=== PATIENT | female | born 1935 | race Caucasian/White ===

== ENCOUNTER 2020-05-05 13:06 | Inpatient (IN) | payer MEDICARE, BC ==
--- NOTE | 2020-05-05 13:37 | ED ---
General Adult HPI - General Chief complaint: GI Bleed Stated complaint: gi bleed Time Seen by Provider: 05/05/20 13:23 Source: patient, EMS, RN notes reviewed, old records reviewed Mode of arrival: EMS Limitations: altered mental status, physical limitation - History of Present Illness Initial comments: 85 -year-old female presenting for evaluation of suspected rectal bleeding. Patient has dementia, unable to contribute to the history. She was diagnosed with coronavirus approximately 2 weeks ago. Patient was noted to have rectal bleeding and transferred to the emergency department. Uncertain if this was suspected melena or hematochezia. Greatest that the patient has been more weak than usual. No reported fevers. No reported vomiting. Patient has had diarrhea. - Related Data Allergies Allergy/AdvReac Type Severity Reaction Status Date / Time clarithromycin [From Biaxin] Allergy Unknown Verified 05/05/20 13:33 Sulfa (Sulfonamide Allergy Unknown Verified 05/05/20 13:33 Antibiotics) zolpidem [From Ambien] Allergy Unknown Verified 05/05/20 13:33 Review of Systems ROS Statement: Those systems with pertinent positive or pertinent negative responses have been documented in the HPI. ROS Other: All systems not noted in ROS Statement are negative. Past Medical History Past Medical History: Unable to Obtain History of Any Multi-Drug Resistant Organisms: Unobtainable Past Surgical History: Unable to Obtain Past Psychological History: Unable to Obtain Smoking Status: Unknown if ever smoked Past Alcohol Use History: Unable to Obtain Past Drug Use History: Unable to Obtain General Exam Limitations: altered mental status, physical limitation General appearance: alert Head exam: Present: atraumatic, normocephalic Eye exam: Present: normal appearance, PERRL ENT exam: Present: mucous membranes dry Neck exam: Present: normal inspection. Absent: tenderness, meningismus Respiratory exam: Present: normal lung sounds bilaterally. Absent: respiratory distress, wheezes Cardiovascular Exam: Present: regular rate, normal rhythm GI/Abdominal exam: Present: soft. Absent: distended, tenderness Rectal exam: Absent: black stool, bloody stool Extremities exam: Present: tenderness (Left lower extremity is externally rotated relative to the knee with a in place. Uncertain if this is baseline.) Neurological exam: Present: alert Psychiatric exam: Present: normal affect, normal mood Skin exam: Present: warm, pallor Course Vital Signs 05/05/20 05/05/20 13:11 13:56 Temperature 99.6 F Pulse Rate 73 57 L Respiratory 16 18 Rate Blood Pressure 139/58 107/48 O2 Sat by Pulse 96 98 Oximetry EKG Findings - EKG Comments: EKG Findings:: EKG: Atrial fibrillation with slow ventricular response, rate of 58 QRS duration 86, QTC 429 Medical Decision Making - Medical Decision Making 85-year-old female presenting for evaluation of GI bleed. Patient has dark stool, this is heme positive. She has hemoglobin of 9 with no known baseline. Her blood pressure is stable in the emergency department. She is unable to contribute all to the history. I did discuss case with Dr. Hernandez who is familiar with the patient, she was admitted with gastroenterology placed on consult. Patient is started on proton pump inhibitor, repeat laboratory studies will be ordered in approximately 5 hours for trended hemoglobin. - Lab Data Result diagrams: 05/05/20 13:30 05/05/20 13:30 Lab Results 05/05/20 05/05/20 05/05/20 Range/Units 13:30 13:30 13:30 WBC 9.5 (3.8-10.6) k/uL RBC 2.79 L (3.80-5.40) m/uL Hgb 9.0 L (11.4-16.0) gm/dL Hct 27.3 L (34.0-46.0) % MCV 97.8 (80.0-100.0) fL MCH 32.4 (25.0-35.0) pg MCHC 33.1 (31.0-37.0) g/dL RDW 14.2 (11.5-15.5) % Plt Count 267 (150-450) k/uL MPV 9.7 Neutrophils % 85 % Lymphocytes % 8 % Monocytes % 4 % Eosinophils % 2 % Basophils % 0 % Neutrophils # 8.1 H (1.3-7.7) k/uL Lymphocytes # 0.7 L (1.0-4.8) k/uL Monocytes # 0.4 (0-1.0) k/uL Eosinophils # 0.2 (0-0.7) k/uL Basophils # 0.0 (0-0.2) k/uL PT 9.9 (9.0-12.0) sec INR 0.9 (<1.2) APTT 20.1 L (22.0-30.0) sec Sodium (137-145) mmol/L Potassium (3.5-5.1) mmol/L Chloride (98-107) mmol/L Carbon Dioxide (22-30) mmol/L Anion Gap mmol/L BUN (7-17) mg/dL Creatinine (0.52-1.04) mg/dL Est GFR (CKD-EPI)AfAm (>60 ml/min/1.73 sqM) Est GFR (CKD-EPI)NonAf (>60 ml/min/1.73 sqM) Glucose (74-99) mg/dL Plasma Lactic Acid Samuel (0.7-2.0) mmol/L Calcium (8.4-10.2) mg/dL Magnesium (1.6-2.3) mg/dL Total Bilirubin (0.2-1.3) mg/dL AST (14-36) U/L ALT (4-34) U/L Alkaline Phosphatase (38-126) U/L Total Protein (6.3-8.2) g/dL Albumin (3.5-5.0) g/dL Stool Occult Blood Positive H (Negative) 05/05/20 05/05/20 Range/Units 13:30 13:30 WBC (3.8-10.6) k/uL RBC (3.80-5.40) m/uL Hgb (11.4-16.0) gm/dL Hct (34.0-46.0) % MCV (80.0-100.0) fL MCH (25.0-35.0) pg MCHC (31.0-37.0) g/dL RDW (11.5-15.5) % Plt Count (150-450) k/uL MPV Neutrophils % % Lymphocytes % % Monocytes % % Eosinophils % % Basophils % % Neutrophils # (1.3-7.7) k/uL Lymphocytes # (1.0-4.8) k/uL Monocytes # (0-1.0) k/uL Eosinophils # (0-0.7) k/uL Basophils # (0-0.2) k/uL PT (9.0-12.0) sec INR (<1.2) APTT (22.0-30.0) sec Sodium 134 L (137-145) mmol/L Potassium 5.0 (3.5-5.1) mmol/L Chloride 107 (98-107) mmol/L Carbon Dioxide 24 (22-30) mmol/L Anion Gap 3 mmol/L BUN 58 H (7-17) mg/dL Creatinine 0.79 (0.52-1.04) mg/dL Est GFR (CKD-EPI)AfAm 79 (>60 ml/min/1.73 sqM) Est GFR (CKD-EPI)NonAf 69 (>60 ml/min/1.73 sqM) Glucose 272 H (74-99) mg/dL Plasma Lactic Acid Samuel 1.2 (0.7-2.0) mmol/L Calcium 8.3 L (8.4-10.2) mg/dL Magnesium 1.8 (1.6-2.3) mg/dL Total Bilirubin 0.5 (0.2-1.3) mg/dL AST 39 H (14-36) U/L ALT 30 (4-34) U/L Alkaline Phosphatase 217 H (38-126) U/L Total Protein 4.8 L (6.3-8.2) g/dL Albumin 2.1 L (3.5-5.0) g/dL Stool Occult Blood (Negative) Disposition Clinical Impression: Melena Disposition: ADMITTED IP TO THIS [facility] Condition: Stable Is patient prescribed a controlled substance at d/c from ED?: No Referrals: Leah Hernandez MD [Primary Care Provider] - 1-2 days Decision to Admit Reason: Admit from EC Decision Date: 05/05/20 Decision Time: 15:22
[2020-05-05 13:49] LABS: Basophils % (A) 0 %; Eosinophils # (A) 0.2 k/uL (0-0.7); Eosinophils % (A) 2 %; HCT 27.3 % (34.0-46.0); Lymphocytes # (A) 0.7 k/uL (1.0-4.8); Lymphocytes % (A) 8 %; MCH 32.4 pg (25.0-35.0); MCHC 33.1 g/dL (31.0-37.0); MCV 97.8 fL (80.0-100.0); Mean Platelet Volume 9.7; Monocytes # (A) 0.4 k/uL (0-1.0); Monocytes % (A) 4 %; Neutrophils # (A) 8.1 k/uL (1.3-7.7); Neutrophils % (A) 85 %; Platelet Count 267 k/uL (150-450); RBC 2.79 m/uL (3.80-5.40); RDW 14.2 % (11.5-15.5); WBC 9.5 k/uL (3.8-10.6)
[2020-05-05 14:00] LABS: Albumin 2.1 g/dL (3.5-5.0); Calcium 8.3 mg/dL (8.4-10.2); Magnesium 1.8 mg/dL (1.6-2.3); Total Bilirubin 0.5 mg/dL (0.2-1.3); Total Protein 4.8 g/dL (6.3-8.2)
[2020-05-05 14:08] LABS: INR 0.9 (<1.2); Prothrombin Time 9.9 sec (9.0-12.0)
[2020-05-05 14:14] LABS: Partial Thromboplastin Time 20.1 sec (22.0-30.0)
[2020-05-05] MEDS ORDERED: PANTOPRAZOLE 40 MG/10 ML VIAL IVP STA (14:28)
[2020-05-05] MEDS ORDERED: NALOXONE 0.4 MG/ML 1 ML VIAL IV PRN (15:17)
--- NOTE | 2020-05-05 18:50 | P.HPIM ---
History of Present Illness H&P Date: 05/05/20 Chief Complaint: Acute blood tarry stool This is a pleasant 85-year-old female with unknown PCP, [place] [facility] [place], for subacute rehabilitation. She sustained a fracture on the left ankle, for which Was provided at [facility], [place], operated by [facility],, she also was diagnosed to have cough. On 04/18/2020, for which family members are in critical condition, apparently the son was in ICU at that time of her hospitalization. She required O2 at nighttime, for which because of cold, now she required O2 [id number]. She was given dexamethasone, and no antibiotic was given at that time, and no monoclonal antibodies is given at the time, remdesivir not required . patient has underlying diabetes mellitus type 2, hypertension, hyperlipidemia, atrial fibrillation, hypothyroidism, macular degeneration, hepatitis 50 years ago, osteoporosis, right broken wrist, severe central canal stenosis L4, compression fractures T 11 2 L4, She presents to emergency room with blood as it was black and burgundy in the stool, as well as mental status changes, for which the original recommendation comes from myself at [facility] on the [place]. Patient has diarrhea. Weaker than usual and has diminished appetite. No respiratory distress when evaluated Review of Systems Constitutional: Reports as per HPI, Reports lethargy, Reports malaise, Reports poor appetite, Denies anorexia, Denies chills, Denies chronic headaches, Denies chronic pain, Denies daytime sleepiness, Denies fatigue, Denies fever, Denies night sweats, Denies sweats, Denies weakness, Denies weight gain, Denies weight loss Ears, nose, mouth and throat: Reports as per HPI Cardiovascular: Reports as per HPI Respiratory: Reports as per HPI Gastrointestinal: Reports diarrhea, Reports hematochezia, Reports melena Genitourinary: Reports as per HPI Menstruation: Reports as per HPI Musculoskeletal: Reports as per HPI Integumentary: Reports as per HPI Neurological: Reports as per HPI, Reports confusion, Reports hearing difficulti es, Reports weakness, Denies aphasia, Denies ataxia, Denies balance difficulties, Denies burning pain, Denies change in mentation, Denies change in smell/taste, Denies change in speech, Denies convulsions, Denies double vision, Denies gait dysfunction, Denies head injury, Denies headaches, Denies lack of coordination, Denies loss of vision, Denies memory loss, Denies migraines, Denies motor disturbance, Denies numbness, Denies paralysis, Denies paresthesias, Denies seizures, Denies sensory deficit, Denies spasticity, Denies syncope, Denies tic, Denies tingling, Denies transient paralysis, Denies tremors, Denies vertigo, Denies visual changes Psychiatric: Reports as per HPI, Denies anhedonia, Denies anxiety, Denies anxiety attacks, Denies change in appetite, Denies change in libido, Denies change in sleep habits, Denies confusion, Denies depression, Denies difficulty concentrating, Denies disorientation, Denies hallucinations, Denies hopelessness, Denies hypersomnia, Denies insomnia, Denies irritability, Denies memory loss, Denies mood swings, Denies paranoia, Denies sadness/tearfulness, Denies sleep disturbances, Denies suicidal ideation Endocrine: Reports as per HPI Hematologic/Lymphatic: Reports as per HPI Allergic/Immunologic: Reports as per HPI, Denies allergic rhinitis, Denies anaphylaxis, Denies angioedema, Denies gluten intolerance, Denies persistent infections, Denies seasonal allergies, Denies urticaria, Denies wheezing Past Medical History Past Medical History: Unable to Obtain History of Any Multi-Drug Resistant Organisms: Unobtainable Additional Past Surgical History / Comment(s): Cholecystectomy, appendectomy, bilateral cataract surgery, left knee meniscus repair Past Anesthesia/Blood Transfusion Reactions: Unable to Obtain Past Psychological History: Unable to Obtain Smoking Status: Former smoker, Unknown if ever smoked Past Alcohol Use History: Unable to Obtain Past Drug Use History: Unable to Obtain - Past Family History Father History Unknown: Yes (Alcohol history) Mother Family Medical History: Diabetes Mellitus, Hypertension Medications and Allergies Home Medications Medication Instructions Recorded Confirmed Type Acetaminophen Tab [Tylenol] 650 mg PO Q4H PRN 05/05/20 05/05/20 History Allopurinol [Zyloprim] 100 mg PO HS 05/05/20 05/05/20 History Aspirin 81 mg PO DAILY 05/05/20 05/05/20 History Atorvastatin Calcium [Lipitor] 40 mg PO HS 05/05/20 05/05/20 History Bisoprolol [Zebeta] 2.5 mg PO DAILY 05/05/20 05/05/20 History Cholecalciferol [Vitamin D3 (25 25 mcg PO DAILY 05/05/20 05/05/20 History Mcg = 1000 Iu)] Cranberry 300mg 300 mg PO BID 05/05/20 05/05/20 History Donepezil [Aricept] 5 mg PO HS 05/05/20 05/05/20 History Ferrous Sulfate [Feosol] 325 mg PO DAILY 05/05/20 05/05/20 History Furosemide [Lasix] 20 mg PO Q12H PRN 05/05/20 05/05/20 History Glucerna Shake 120 can PO BID@0900,1700 05/05/20 05/05/20 History Lactobacillus Acidophilus 1 tab PO DAILY 05/05/20 05/05/20 History [Acidophilus] Levothyroxine Sodium [Synthroid] 150 mcg PO HS 05/05/20 05/05/20 History Multivitamins, Thera [Multivitamin 1 tab PO DAILY 05/05/20 05/05/20 History (formulary)] busPIRone HCl [Buspar] 10 mg PO BID@0900,2100 05/05/20 05/05/20 History busPIRone HCl [Buspar] 20 mg PO DAILY@1200 05/05/20 05/05/20 History glipiZIDE [Glucotrol] 10 mg PO BID@0900,1700 05/05/20 05/05/20 History lisinopriL [Zestril] 20 mg PO DAILY 05/05/20 05/05/20 History traZODone HCL 25 mg PO HS 05/05/20 05/05/20 History Allergies Allergy/AdvReac Type Severity Reaction Status Date / Time clarithromycin [From Biaxin] Allergy Unknown Verified 05/05/20 15:45 Sulfa (Sulfonamide Allergy Unknown Verified 05/05/20 15:45 Antibiotics) zolpidem [From Ambien] Allergy Unknown Verified 05/05/20 15:45 Physical Exam Vitals: Vital Signs Temp Pulse Resp BP Pulse Ox 05/05/20 17:02 97.8 F 18 94 L 05/05/20 17:00 58 L 18 111/58 95 05/05/20 13:56 57 L 18 107/48 98 05/05/20 13:11 99.6 F 73 16 139/58 96 Intake and Output 05/05/20 05/05/20 05/05/20 06:59 14:59 22:59 Other: # Bowel Movements 1 Weight 81.647 kg 81.647 kg - Constitutional General appearance: average body habitus, cooperative, no acute distress - EENT Eyes: anicteric sclerae, dentition normal, normal appearance ENT: NA/AT, normal oropharynx - Neck Neck: normal ROM - Respiratory Respiratory: bilateral: CTA, negative: diminished, dullness, rales, rhonchi - Cardiovascular Rhythm: regular Heart sounds: normal: S1, S2 Abnormal Heart Sounds: no systolic murmur, no diastolic murmur, no rub, no S3 Gallop, no S4 Gallop, no click, no other - Gastrointestinal General gastrointestinal: normal bowel sounds, soft - Integumentary Integumentary: decreased turgor, normal - Musculoskeletal Left ankle immobilizer cast Musculoskeletal: generalized weakness - Psychiatric Oriented 1 not much conversation, Results CBC & Chem 7: 05/05/20 13:30 05/05/20 13:30 Labs: Abnormal Lab Results - Last 24 Hours (Table) 05/05/20 05/05/20 05/05/20 Range/Units 13:30 13:30 13:30 RBC 2.79 L (3.80-5.40) m/uL Hgb 9.0 L (11.4-16.0) gm/dL Hct 27.3 L (34.0-46.0) % Neutrophils # 8.1 H (1.3-7.7) k/uL Lymphocytes # 0.7 L (1.0-4.8) k/uL APTT 20.1 L (22.0-30.0) sec Sodium (137-145) mmol/L BUN (7-17) mg/dL Glucose (74-99) mg/dL Calcium (8.4-10.2) mg/dL AST (14-36) U/L Alkaline Phosphatase (38-126) U/L Total Protein (6.3-8.2) g/dL Albumin (3.5-5.0) g/dL Stool Occult Blood Positive H (Negative) Coronavirus (PCR) (Not Detectd) 05/05/20 05/05/20 Range/Units 13:30 15:11 RBC (3.80-5.40) m/uL Hgb (11.4-16.0) gm/dL Hct (34.0-46.0) % Neutrophils # (1.3-7.7) k/uL Lymphocytes # (1.0-4.8) k/uL APTT (22.0-30.0) sec Sodium 134 L (137-145) mmol/L BUN 58 H (7-17) mg/dL Glucose 272 H (74-99) mg/dL Calcium 8.3 L (8.4-10.2) mg/dL AST 39 H (14-36) U/L Alkaline Phosphatase 217 H (38-126) U/L Total Protein 4.8 L (6.3-8.2) g/dL Albumin 2.1 L (3.5-5.0) g/dL Stool Occult Blood (Negative) Coronavirus (PCR) Detected A (Not Detectd) Laboratory Results WBC 9.5 k/uL (3.8-10.6) 05/05/20 13:30 RBC 2.79 m/uL (3.80-5.40) L 05/05/20 13:30 Hgb 9.0 gm/dL (11.4-16.0) L 05/05/20 13:30 Hct 27.3 % (34.0-46.0) L 05/05/20 13:30 MCV 97.8 fL (80.0-100.0) 05/05/20 13:30 MCH 32.4 pg (25.0-35.0) 05/05/20 13:30 MCHC 33.1 g/dL (31.0-37.0) 05/05/20 13:30 RDW 14.2 % (11.5-15.5) 05/05/20 13:30 Plt Count 267 k/uL (150-450) 05/05/20 13:30 MPV 9.7 05/05/20 13:30 Neutrophils % 85 % 05/05/20 13:30 Lymphocytes % 8 % 05/05/20 13:30 Monocytes % 4 % 05/05/20 13:30 Eosinophils % 2 % 05/05/20 13:30 Basophils % 0 % 05/05/20 13:30 Neutrophils # 8.1 k/uL (1.3-7.7) H 05/05/20 13:30 Lymphocytes # 0.7 k/uL (1.0-4.8) L 05/05/20 13:30 Monocytes # 0.4 k/uL (0-1.0) 05/05/20 13:30 Eosinophils # 0.2 k/uL (0-0.7) 05/05/20 13:30 Basophils # 0.0 k/uL (0-0.2) 05/05/20 13:30 PT 9.9 sec (9.0-12.0) 05/05/20 13:30 INR 0.9 (<1.2) 05/05/20 13:30 APTT 20.1 sec (22.0-30.0) L 05/05/20 13:30 Sodium 134 mmol/L (137-145) L 05/05/20 13:30 Potassium 5.0 mmol/L (3.5-5.1) 05/05/20 13:30 Chloride 107 mmol/L (98-107) 05/05/20 13:30 Carbon Dioxide 24 mmol/L (22-30) 05/05/20 13:30 Anion Gap 3 mmol/L 05/05/20 13:30 BUN 58 mg/dL (7-17) H 05/05/20 13:30 Creatinine 0.79 mg/dL (0.52-1.04) 05/05/20 13:30 Est GFR (CKD-EPI)AfAm 79 (>60 ml/min/1.73 sqM) 05/05/20 13:30 Est GFR (CKD-EPI)NonAf 69 (>60 ml/min/1.73 sqM) 05/05/20 13:30 Glucose 272 mg/dL (74-99) H 05/05/20 13:30 Plasma Lactic Acid Samuel 1.2 mmol/L (0.7-2.0) 05/05/20 13:30 Calcium 8.3 mg/dL (8.4-10.2) L 05/05/20 13:30 Magnesium 1.8 mg/dL (1.6-2.3) 05/05/20 13:30 Total Bilirubin 0.5 mg/dL (0.2-1.3) 05/05/20 13:30 AST 39 U/L (14-36) H 05/05/20 13:30 ALT 30 U/L (4-34) 05/05/20 13:30 Alkaline Phosphatase 217 U/L (38-126) H 05/05/20 13:30 Total Protein 4.8 g/dL (6.3-8.2) L 05/05/20 13:30 Albumin 2.1 g/dL (3.5-5.0) L 05/05/20 13:30 Stool Occult Blood Positive (Negative) H 05/05/20 13:30 Coronavirus (PCR) Detected (Not Detectd) A 05/05/20 15:11 Thrombosis Risk Factor Assmnt - Choose All That Apply Any of the Below Risk Factors Present?: No Assessment and Plan Plan: 1. Acute black tarry stool, with weakness and increasing confusion, acute GI bleed, presenting hemoglobin of 9.0, previous hemoglobin of 13.5 on 04/18/2020, consult with gastroenterology, check iron studies, hold aspirin, will need transfusion if below 7, check for iron studies 2 History of paroxysmal atrial fibrillation, not on anticoagulation prior to admission except for aspirin 81 mg daily for which it is held secondary to lack started stool, 3 Hypertension, lisinopril 20 mg daily and bisoprolol 2.5 mg daily furosemide was discontinued prior to her admission to [facility] secondary to dehydration from Covid Echocardiogram reviewed, 04/20/2020, secondary to non-STEMI, type II RI, mild LVH, severe hypokinesia of right ventricle, normal EF, moderate enlargement right atrium, thickened mitral valve, I right ventricle systolic pressure 55, consistent with pulmonary hypertension, ejection fraction 65% moderate TR 4 Covid infection diagnosed 04/23/2020 given dexamethasone, did not require remdesivir, or monoclonal anti-body infusion currently on O2 supplementation, stable without any respiratory distress. Follow-up chest x-ray, obtain Covid markers 5 Hyperlipidemia, on atorvastatin 40 mg daily 6 CK D stage II with recent CARMINA secondary to dehydration, Covid 7 Hypothyroidism, on levothyroxine 150 g daily 8 Anxiety, on BuSpar 10 mg 3 times a day 9 Previous tobacco use, quit in 1975 10 Discharge planning, most likely return to subacute rehab, [facility] 11 History of diabetes mellitus type 2, Accu-Cheks before meals and at bedtime, patient on glipizide 10 mg daily, on hold secondary to decreased appetite, check for blood sugars and sliding scale prior to admission check A1c possible diet controlled 12 Macular degeneration 13 History of severe spinal stenosis L4, 14 Acute left ankle fracture, need to be clarified for weightbearing status left ankle, 15 Dementia, on Aricept 5 mg daily 16 iron deficiency anemia on iron tablets 17 Insomnia and depression, on trazodone 25 mg at bedtime DVT prophylaxis SUSANA michelle, patient had fractured left ankle, at risk for blood clots in the leg, aspirin is held, we'll going to give low dose heparin 5000 units every 12 hours GI prophylaxis
[2020-05-05] MEDS: PANTOPRAZOLE 40 MG/10 ML VIAL IVP SCH (20:50)
[2020-05-05] MEDS: HEPARIN SODIUM,PORCINE 5,000 UNIT/ML 1 ML VIAL SQ SCH (20:50)
[2020-05-05] MEDS: allopurinoL 100 MG TAB PO SCH (20:50)
[2020-05-05] MEDS: busPIRone HCl 10 MG TAB PO SCH (20:50)
[2020-05-05] MEDS: ATORVASTATIN 40 MG TAB PO SCH (20:51)
[2020-05-05] MEDS: LEVOTHYROXINE 75 MCG TAB PO SCH (20:51)
[2020-05-05] MEDS: traZODone HCL 50 MG TAB PO SCH (20:51)
[2020-05-05] MEDS: DONEPEZIL 5 MG TAB PO SCH (20:51)
[2020-05-06 09:00] LABS: Glucose,Whole Blood 218 mg/dL (75-99)
[2020-05-06] MEDS: CHOLECALCIFEROL 25 MCG (1000 IU) TABLET PO SCH (09:07)
[2020-05-06] MEDS: BISOPROLOL 5 MG TAB PO SCH (09:07)
[2020-05-06] MEDS: MULTIVITAMINS, THERA 1 EACH TAB PO SCH (09:07)
[2020-05-06] MEDS: PANTOPRAZOLE 40 MG/10 ML VIAL IVP SCH ×2 (09:07→20:53)
[2020-05-06] MEDS: busPIRone HCl 10 MG TAB PO SCH ×2 (09:07→20:58)
[2020-05-06] MEDS: lisinopriL 20 MG TAB PO SCH (09:07)
[2020-05-06] MEDS: HEPARIN SODIUM,PORCINE 5,000 UNIT/ML 1 ML VIAL SQ SCH ×2 (09:07→20:53)
[2020-05-06] MEDS: INSULIN ASPART (NovoLOG) 100 UNIT/ML VIAL SQ SCH ×4 (09:09→20:56)
[2020-05-06] MEDS: ACETAMINOPHEN TAB 325 MG TAB PO PRN (09:20)
--- NOTE | 2020-05-06 10:52 | US ---
EXAMINATION TYPE: US venous doppler duplex LE DATE OF EXAM: 05/06/2020 9:48 AM COMPARISON: NONE CLINICAL HISTORY: edema. SIDE PERFORMED: Bilateral TECHNIQUE: The lower extremity deep venous system is examined utilizing real time linear array sonog sivan with graded compression, doppler sonography and color-flow sonography. VESSELS IMAGED: Common Femoral Vein Deep Femoral Vein Greater Saphenous Vein * Femoral Vein Popliteal Vein Small Saphenous Vein * Proximal Calf Veins (* superficial vessels) Limited exam, patient ended exam before pop images were obtained. Left and right common femoral, supe rficial femoral show normal color flow, vascular waveforms. Right popliteal vein shows normal color f low and no abnormal luminal echoes, compression. Right Leg: Negative for DVT Left Leg: Negative for DVT as visualized. Unable to obtain pop vein images as patient ended exam. IMPRESSION: There is some limitation to the exam. No evident deep venous thrombosis as described.
[2020-05-06 11:37] LABS: Basophils % (A) 0 %; Eosinophils # (A) 0.1 k/uL (0-0.7); Eosinophils % (A) 1 %; HCT 30.7 % (34.0-46.0); HGB 10.1 gm/dL (11.4-16.0); Lymphocytes # (A) 0.5 k/uL (1.0-4.8); Lymphocytes % (A) 5 %; MCHC 32.8 g/dL (31.0-37.0); MCV 100.5 fL (80.0-100.0); Macrocytosis Slight; Mean Platelet Volume 10.3; Monocytes # (A) 0.5 k/uL (0-1.0); Monocytes % (A) 5 %; Neutrophils # (A) 9.2 k/uL (1.3-7.7); Neutrophils % (A) 89 %; Platelet Count 291 k/uL (150-450); RBC 3.06 m/uL (3.80-5.40); RDW 14.5 % (11.5-15.5); WBC 10.4 k/uL (3.8-10.6)
[2020-05-06 11:58] LABS: ALT 34 U/L (4-34); AST 38 U/L (14-36); African American GFR (CKD) 68 (>60 ml/min/1.73 sqM); Albumin 2.6 g/dL (3.5-5.0); Albumin/Globulin Ratio 0.9; Alkaline Phosphatase 267 U/L (38-126); Anion Gap 7 mmol/L; Blood Urea Nitrogen 59 mg/dL (7-17); Calcium 8.5 mg/dL (8.4-10.2); Carbon Dioxide 24 mmol/L (22-30); Chloride 105 mmol/L (98-107); Globulin 2.9 g/dL; Glucose 290 mg/dL (74-99); Non-African American GFR(CKD) 59 (>60 ml/min/1.73 sqM); Potassium 4.4 mmol/L (3.5-5.1); Sodium 136 mmol/L (137-145); Total Bilirubin 0.5 mg/dL (0.2-1.3); Total Protein 5.5 g/dL (6.3-8.2)
[2020-05-06 11:58] LABS: Glucose,Whole Blood 166 mg/dL (75-99)
--- NOTE | 2020-05-06 14:53 | P.PN ---
Subjective Progress Note Date: 05/06/20 HISTORY OF PRESENT ILLNESS This is a pleasant 85-year-old female with unknown PCP, she [facility] in [facility] [place], for subacute rehabilitation. She sustained a fracture on t he left ankle, for which Was provided at [facility],, she also was diagnosed to have cough. On 04/18/2020, for which family members are in critical condition, apparently the son was in ICU at that time of her hospitalization. She required O2 at nighttime, for which because of cold, now she required O2 [id number]. She was given dexamethasone, and no antibiotic was given at that time, and no monoclonal antibodies is given at the time, remdesivir not required . patient has underlying diabetes mellitus type 2, hypertension, hyperlipidemia, atrial fibrillation, hypothyroidism, macular degeneration, hepatitis 50 years ago, osteoporosis, right broken wrist, severe central canal stenosis L4, compression fractures T 11 2 L4, She presents to emergency room with blood as it was black and burgundy in the stool, as well as mental status changes, for which the original recommendation comes from myself at [facility]. Patient has diarrhea. Weaker than usual and has diminished appetite. No respiratory distress when evaluated 05/06: Patient had one black tarry stool today. C. difficile toxin was not tested as he levi She is known to have bilateral lower extremity edema specially left ankle edema for which ultrasound ordered to rule out DVT. Telemetry will be discontinued. H. pylori is pending. Patient has been afebrile, heart rate 65, blood pressure 108/58, pulse ox 98% on 4L nc. REVIEW OF SYSTEMS Constitutional: No fever, no chills, no night sweats. No weight change. Positive weakness, fatigue or lethargy. No daytime sleepiness. EENT: No headache. No blurred vision or double vision, no loss of vision. No loss of Hearing, no ringing in the ears, no dizziness. No nasal drainage or congestion. No epistaxis. No sore throat. Lungs: No shortness of breath, cough, no sputum production. No wheezing. Cardiovascular: No chest pain, noted lower extremity edema. No palpitations. No paroxysmal nocturnal dyspnea. No orthopnea. No lightheadedness or dizziness. No syncopal episodes. Abdominal: No abdominal pain. No nausea, vomiting. No diarrhea. No constipation. Reported tarry stools.. No loss of appetite. Genitourinary: No dysuria, increased frequency, urgency. No urinary retention. Musculoskeletal: No myalgias. Positive muscle weakness, no gait dysfunction, no frequent falls. No back pain. No neck pain. Integumentary: No wounds, no lesions. No rash or pruritus. No unusual bruising. No change in hair or nails. Neurologic: No aphasia. No facial droop. No change in mentation. No head injury. No headache. No paralysis. No paresthesia. Psychiatric: No depression. No anxiety. No mood swings. Endocrine: No abnormal blood sugars. No weight change. No excessive sweating or thirst. No cold intolerance. PHYSICAL EXAMINATION Gen: This is as an 85-year-old female. She noted to be pleasantly confused. She is able to answer questions appropriately. Patient appears to be in no acute distress at the time of evaluation. HEENT: Head is atraumatic, normocephalic. Pupils equal, round. Sclerae is anicteric. NECK: Supple. No JVD. No lymphadenopathy. No thyromegaly. LUNGS: Clear to auscultation. No wheezes or rhonchi. No intercostal retractions. HEART: Regular rate and rhythm. No murmur. ABDOMEN: Soft. Bowel sounds are present. No masses. No tenderness. EXTREMITIES: 1+ bilateral pedal edema, worse on the right. No calf tenderness. NEUROLOGICAL: Patient is awake, alert and oriented to person. Generalized weakness. ASSESSMENT AND PLAN 1. Acute black tarry stool, with weakness and increasing confusion and metab olic encephalopathy secondary to acute GI bleed, presenting hemoglobin of 9.0, previous hemoglobin of 13.5 on 04/18/2020, consult with gastroenterology, check iron studies, hold aspirin, will need transfusion if below 7, check for iron studies. GI consult appreciated. Iron studies ordered. No endoscopy at this time. Continue Protonix 40 mg IV push twice daily. 2 History of paroxysmal atrial fibrillation, not on anticoagulation prior to admission except for aspirin 81 mg daily for which it is held secondary to lack started stool, 3 Hypertension, lisinopril 20 mg daily and bisoprolol 2.5 mg daily furosemide was discontinued prior to her admission to lesions in the [place] secondary to dehy dration from [facility] Echocardiogram reviewed, 04/20/2020, secondary to non-STEMI, type II TX, mild LV H, severe hypokinesia of right ventricle, normal EF, moderate enlargement right atrium, thickened mitral valve, I right ventricle systolic pressure 55, consistent with pulmonary hypertension, ejection fraction 65% moderate TR 4 Covid infection diagnosed 04/23/2020 given dexamethasone, did not require remdesivir, or monoclonal anti-body infusion currently on O2 supplementation, stable without any respiratory distress. Follow-up chest x-ray, obtain Covid markers 5 Hyperlipidemia, on atorvastatin 40 mg daily 6 CKD stage II with recent CARMINA secondary to dehydration, Covid 7 Hypothyroidism, on levothyroxine 150 g daily 8 generalized anxiety disorder, on BuSpar 10 mg 3 times a day 9 Previous tobacco use, quit in 1975 10 Discharge planning, most likely return to subacute rehab, [facility] 11 History of diabetes mellitus type 2, Accu-Cheks before meals and at bedtime, patient on glipizide 10 mg daily, on hold secondary to decreased appetite, check for blood sugars and sliding scale prior to admission check A1c possible diet controlled 12 Macular degeneration 13 History of severe spinal stenosis L4, 14 Acute left ankle fracture, need to be clarified for weightbearing status left ankle, 15 Dementia, on Aricept 5 mg daily 16 iron deficiency anemia on iron tablets 17 Insomnia and depression, on trazodone 25 mg at bedtime DVT prophylaxis SUSANA michelle, patient had fractured left ankle, at risk for blood clots in the leg, aspirin is held, we'll going to give low dose heparin 5000 units every 12 hours GI prophylaxis DISCHARGE PLAN [facility] return. Impression and plan of care have been directed as dictated by the signing physician. Tami Shine nurse practitioner acting as scribe for signing physician. Objective - Vital Signs Vital signs: Vital Signs Temp 97.6 F 05/06/20 05:50 Pulse 65 05/06/20 05:50 Resp 14 05/06/20 05:50 BP 108/58 05/06/20 05:50 Pulse Ox 98 05/06/20 05:50 Intake & Output 05/05/20 05/06/20 05/06/20 18:59 06:59 18:59 Output Total 300 Balance -300 Weight 81.647 kg Output: Urine 300 Other: Voiding Method Indwelling Catheter # Bowel Movements 1 3 - Labs CBC & Chem 7: 05/06/20 10:56 05/06/20 10:56 Labs: Abnormal Lab Results - Last 24 Hours (Table) 05/05/20 05/05/20 05/05/20 Range/Units 13:30 13:30 13:30 RBC 2.79 L (3.80-5.40) m/uL Hgb 9.0 L (11.4-16.0) gm/dL Hct 27.3 L (34.0-46.0) % Neutrophils # 8.1 H (1.3-7.7) k/uL Lymphocytes # 0.7 L (1.0-4.8) k/uL APTT 20.1 L (22.0-30.0) sec Sodium (137-145) mmol/L BUN (7-17) mg/dL Glucose (74-99) mg/dL POC Glucose (mg/dL) (75-99) mg/dL Calcium (8.4-10.2) mg/dL AST (14-36) U/L Alkaline Phosphatase (38-126) U/L Total Protein (6.3-8.2) g/dL Albumin (3.5-5.0) g/dL Stool Occult Blood Positive H (Negative) Coronavirus (PCR) (Not Detectd) 05/05/20 05/05/20 05/06/20 Range/Units 13:30 15:11 08:52 RBC (3.80-5.40) m/uL Hgb (11.4-16.0) gm/dL Hct (34.0-46.0) % Neutrophils # (1.3-7.7) k/uL Lymphocytes # (1.0-4.8) k/uL APTT (22.0-30.0) sec Sodium 134 L (137-145) mmol/L BUN 58 H (7-17) mg/dL Glucose 272 H (74-99) mg/dL POC Glucose (mg/dL) 218 H (75-99) mg/dL Calcium 8.3 L (8.4-10.2) mg/dL AST 39 H (14-36) U/L Alkaline Phosphatase 217 H (38-126) U/L Total Protein 4.8 L (6.3-8.2) g/dL Albumin 2.1 L (3.5-5.0) g/dL Stool Occult Blood (Negative) Coronavirus (PCR) Detected A (Not Detectd)
[2020-05-06] MEDS ORDERED: SODIUM CHLORIDE 0.9% 500 ML 500 ML IV ONE (15:22)
[2020-05-06 16:31] VITALS: BMI 29.0
[2020-05-06 16:52] LABS: Glucose,Whole Blood 183 mg/dL (75-99)
[2020-05-06 19:20] LABS: Reticulocyte % 3.6 % (0.10-1.80)
[2020-05-06 20:11] LABS: Glucose,Whole Blood 188 mg/dL (75-99)
[2020-05-06] MEDS: traZODone HCL 50 MG TAB PO SCH (20:53)
[2020-05-06] MEDS: LEVOTHYROXINE 75 MCG TAB PO SCH (20:54)
[2020-05-06] MEDS: allopurinoL 100 MG TAB PO SCH (20:55)
[2020-05-06] MEDS: DONEPEZIL 5 MG TAB PO SCH (20:55)
[2020-05-06] MEDS: ATORVASTATIN 40 MG TAB PO SCH (20:55)
[2020-05-06 20:58] LABS: % Iron Saturation 21.76 (12.00-45.00); Ferritin 430.9 ng/mL (10.0-291.0); Folate, Serum >24.0 ng/mL; Iron 42 ug/dL (50-170); Total Iron Binding Capacity 193 ug/dL (228-460)
[2020-05-07 06:15] LABS: ALT 29 U/L (4-34); AST 39 U/L (14-36); African American GFR (CKD) 73 (>60 ml/min/1.73 sqM); Albumin 2.1 g/dL (3.5-5.0); Albumin/Globulin Ratio 0.8; Alkaline Phosphatase 232 U/L (38-126); Anion Gap 3 mmol/L; Blood Urea Nitrogen 59 mg/dL (7-17); Calcium 8.4 mg/dL (8.4-10.2); Carbon Dioxide 25 mmol/L (22-30); Chloride 108 mmol/L (98-107); Globulin 2.7 g/dL; Glucose 118 mg/dL (74-99); Non-African American GFR(CKD) 63 (>60 ml/min/1.73 sqM); Potassium 4.5 mmol/L (3.5-5.1); Sodium 136 mmol/L (137-145); Total Bilirubin 0.5 mg/dL (0.2-1.3); Total Protein 4.8 g/dL (6.3-8.2)
[2020-05-07 06:58] LABS: Glucose,Whole Blood 131 mg/dL (75-99)
[2020-05-07] MEDS: INSULIN ASPART (NovoLOG) 100 UNIT/ML VIAL SQ SCH ×4 (07:28→21:48)
[2020-05-07] MEDS: BISOPROLOL 5 MG TAB PO SCH (07:28)
[2020-05-07] MEDS: lisinopriL 20 MG TAB PO SCH ×2 (07:29→09:09)
[2020-05-07] MEDS: CHOLECALCIFEROL 25 MCG (1000 IU) TABLET PO SCH (09:08)
[2020-05-07] MEDS: busPIRone HCl 10 MG TAB PO SCH ×2 (09:08→21:48)
[2020-05-07] MEDS: MULTIVITAMINS, THERA 1 EACH TAB PO SCH (09:09)
[2020-05-07] MEDS: HEPARIN SODIUM,PORCINE 5,000 UNIT/ML 1 ML VIAL SQ SCH (09:09)
[2020-05-07] MEDS: PANTOPRAZOLE 40 MG/10 ML VIAL IVP SCH ×2 (09:09→21:49)
[2020-05-07 10:14] LABS: HCT 26.3 % (37.2-46.3); HGB 8.4 g/dL (12.0-15.0); MCH 32.6 pg (27.0-32.0); MCHC 31.9 g/dL (32.0-37.0); MCV 101.9 fL (80.0-97.0); Mean Platelet Volume 13.2 fL (9.5-12.2); Platelet Count 235 X 10*3/uL (140-440); RBC 2.58 X 10*6/uL (4.10-5.20); RDW 14.7 % (11.5-14.5); WBC 10.44 X 10*3/uL (4.50-10.00)
[2020-05-07 10:20] LABS: C Reactive Protein 49.7 mg/L (<10.0)
--- NOTE | 2020-05-07 10:45 | XR ---
EXAMINATION TYPE: XR chest 1V portable DATE OF EXAM: 05/07/2020 COMPARISON: NONE HISTORY: Shortness of breath TECHNIQUE: Single frontal view of the chest is obtained. FINDINGS: Diffuse interstitial pattern with bilateral areas of patchy infiltrate and small effusion. Heart is upper limits of normal. Limited inspiration. Diffuse osteopenia and arthropathy of the shou lders. No sizable pneumothorax. IMPRESSION: 1. Bilateral patchy areas of infiltrate for which pneumonia is favored.
[2020-05-07 11:54] LABS: Glucose,Whole Blood 295 mg/dL (75-99)
[2020-05-07] MEDS: dexAMETHasone 2 MG TAB PO SCH (12:31)
[2020-05-07] MEDS: ZINC SULFATE 220 MG CAP PO SCH (12:32)
[2020-05-07] MEDS: SODIUM CHLORIDE 0.9% 1,000 ML IV SCH ×2 (12:32→20:04)
[2020-05-07] MEDS: ASCORBIC ACID 500 MG TAB PO SCH (12:32)
--- NOTE | 2020-05-07 12:52 | P.PN ---
Subjective Progress Note Date: 05/07/20 HISTORY OF PRESENT ILLNESS This is a pleasant 85-year-old female with unknown PCP, she [place] [facility] [place], for subacute rehabilitation. She sustained a fracture on t he left ankle, for which Was provided at [facility],, she also was diagnosed to have cough. On 04/18/2020, for which family members are in critical condition, apparently the son was in ICU at that time of her hospitalization. She required O2 at nighttime, for which because of cold, now she required O2 [id number]. She was given dexamethasone, and no antibiotic was given at that time, and no monoclonal antibodies is given at the time, remdesivir not required . patient has underlying diabetes mellitus type 2, hypertension, hyperlipidemia, atrial fibrillation, hypothyroidism, macular degeneration, hepatitis 50 years ago, osteoporosis, right broken wrist, severe central canal stenosis L4, compression fractures T 11 2 L4, She presents to emergency room with blood as it was black and burgundy in the stool, as well as mental status changes, for which the original recommendation comes from myself at [facility]. Patient has diarrhea. Weaker than usual and has diminished appetite. No respiratory distress when evaluated 05/06: Patient had one black tarry stool today. C. difficile toxin was not tested as he levi She is known to have bilateral lower extremity edema specially left ankle edema for which ultrasound ordered to rule out DVT. Telemetry will be discontinued. H. pylori is pending. Patient has been afebrile, heart rate 65, blood pressure 108/58, pulse ox 98% on 4L nc. 05/07: The patient did have a very large black tarry stool this morning. She denies having any abdominal pain. She remains pleasantly confused. She is on 15 L high flow nasal cannula and nonrebreather which was started yesterday. She had some decreased urine output as well. Blood pressure is marginal. Lisinopril will be discontinued. IV fluids at 75 mL per hour. Stool to be checked for C. difficile colitis. SUSANA michelle added. Heparin subcu discontinued. Consult added for Dr. Redman regarding hypoxia and Covid 19. Chest x-ray ordered. REVIEW OF SYSTEMS Constitutional: No fever, no chills, no night sweats. No weight change. Positive weakness, fatigue or lethargy. No daytime sleepiness. EENT: No headache. No blurred vision or double vision, no loss of vision. No loss of Hearing, no ringing in the ears, no dizziness. No nasal drainage or congestion. No epistaxis. No sore throat. Lungs: Reports shortness of breath, cough, no sputum production. No wheezing. Cardiovascular: No chest pain, noted lower extremity edema. No palpitations. No paroxysmal nocturnal dyspnea. No orthopnea. No lightheadedness or dizz iness. No syncopal episodes. Abdominal: No abdominal pain. No nausea, vomiting. Reports diarrhea. No constipation. Reported tarry stools.. No loss of appetite. Genitourinary: No dysuria, increased frequency, urgency. No urinary retention. Musculoskeletal: No myalgias. Positive muscle weakness, no gait dysfunction, no frequent falls. No back pain. No neck pain. Integumentary: No wounds, no lesions. No rash or pruritus. No unusual bruising. No change in hair or nails. Neurologic: No aphasia. No facial droop. No change in mentation. No head injury. No headache. No paralysis. No paresthesia. Psychiatric: No depression. No anxiety. No mood swings. Endocrine: No abnormal blood sugars. No weight change. PHYSICAL EXAMINATION Gen: This is as an 85-year-old female. She noted to be pleasantly confused. She is able to answer questions appropriately. Patient appears to be in no acute distress at the time of evaluation. HEENT: Head is atraumatic, normocephalic. Pupils equal, round. Sclerae is anicteric. NECK: Supple. No JVD. No lymphadenopathy. No thyromegaly. LUNGS: Clear to auscultation. No wheezes or rhonchi. No intercostal retraction s. HEART: Regular rate and rhythm. No murmur. ABDOMEN: Soft. Bowel sounds are present. No masses. No tenderness. EXTREMITIES: 1+ bilateral pedal edema, worse on the right. No calf tenderness. NEUROLOGICAL: Patient is awake, alert and oriented to person. Generalized weakness. ASSESSMENT AND PLAN 1. Acute black tarry stool, with weakness and increasing confusion and m etabolic encephalopathy secondary to acute GI bleed, presenting hemoglobin of 9.0, previous hemoglobin of 13.5 on 04/18/2020, consult with gastroenterology, check iron studies, hold aspirin, will need transfusion if below 7, check for iron studies. GI consult appreciated. Iron studies ordered. No endoscopy at this time. Continue Protonix 40 mg IV push twice daily. 2 History of paroxysmal atrial fibrillation, not on anticoagulation prior to admission except for aspirin 81 mg daily for which it is held secondary to lack started stool, 3 Hypertension, lisinopril discontinued. Continue bisoprolol 2.5 mg daily furosemide was discontinued prior to her admission to [facility] due to dehydration from Covid. Echocardiogram reviewed, 04/20/2020, secondary to non-STEMI, type II MD, mild LVH, severe hypokinesia of right ventricle, normal EF, moderate enlargement right atrium, thickened mitral valve, I right ventricle systolic pressure 55, consistent with pulmonary hypertension, ejection fraction 65% moderate TR 4 . Acute hypoxic respiratory failure secondary to Covid infection diagnosed 04/23/2020 given dexamethasone, did not require remdesivir, or monoclonal anti- body infusion currently on O2 supplementation, stable without any respiratory distress. Chest x-ray. Inflammatory markers, consult with both her medicine. 5 Hyperlipidemia, on atorvastatin 40 mg daily 6 CKD stage II with recent CARMINA secondary to dehydration, Covid 7 Hypothyroidism, on levothyroxine 150 g daily 8 generalized anxiety disorder, on BuSpar 10 mg 3 times a day 9 Previous tobacco use, quit in 1975 10 Discharge planning, most likely return to subacute rehab, [facility] 11 History of diabetes mellitus type 2, Accu-Cheks before meals and at bedtime, patient on glipizide 10 mg daily, on hold secondary to decreased appetite, check for blood sugars and sliding scale prior to admission check A1c possible diet controlled 12 Macular degeneration 13 History of severe spinal stenosis L4, 14 Acute left ankle fracture, need to be clarified for weightbearing status left ankle, 15 Dementia, on Aricept 5 mg daily 16 iron deficiency anemia on iron tablets 17 Insomnia and depression, on trazodone 25 mg at bedtime DVT prophylaxis SUSANA michelle, patient had fractured left ankle, at risk for blood clots in the leg, aspirin is held, we'll going to give low dose heparin 5000 units every 12 hours GI prophylaxis DISCHARGE PLAN [facility] return. Impression and plan of care have been directed as dictated by the signing physician. Tami Shine nurse practitioner acting as scribe for signing physician. Objective - Vital Signs Vital signs: Vital Signs Temp 96.6 F L 05/07/20 06:09 Pulse 64 05/07/20 06:09 Resp 18 05/07/20 06:09 BP 105/50 05/07/20 06:09 Pulse Ox 90 L 05/07/20 08:29 Intake & Output 05/06/20 05/07/20 05/07/20 18:59 06:59 18:59 Output Total 200 300 Balance -200 -300 Weight 81.647 kg Output: Urine 200 300 Other: Voiding Method Indwelling Catheter Indwelling Catheter # Bowel Movements 1 0 - Labs CBC & Chem 7: 05/07/20 04:38 05/07/20 04:38 Labs: Abnormal Lab Results - Last 24 Hours (Table) 05/06/20 05/06/20 05/06/20 Range/Units 10:56 10:56 10:56 RBC 3.06 L (3.80-5.40) m/uL Hgb 10.1 L (11.4-16.0) gm/dL Hct 30.7 L (34.0-46.0) % MCV 100.5 H (80.0-100.0) fL Neutrophils # 9.2 H (1.3-7.7) k/uL Lymphocytes # 0.5 L (1.0-4.8) k/uL Retic Count 3.60 H (0.10-1.80) % Sodium 136 L (137-145) mmol/L Chloride (98-107) mmol/L BUN 59 H (7-17) mg/dL Glucose 290 H (74-99) mg/dL POC Glucose (mg/dL) (75-99) mg/dL Iron 42 L (50-170) ug/dL TIBC 193 L (228-460) ug/dL Ferritin 430.9 H (10.0-291.0) ng/mL AST 38 H (14-36) U/L Alkaline Phosphatase 267 H (38-126) U/L Total Protein 5.5 L (6.3-8.2) g/dL Albumin 2.6 L (3.5-5.0) g/dL Vitamin B12 1466.0 H (200.0-944.0) pg/mL 05/06/20 05/06/20 05/06/20 Range/Units 11:52 16:50 20:10 RBC (3.80-5.40) m/uL Hgb (11.4-16.0) gm/dL Hct (34.0-46.0) % MCV (80.0-100.0) fL Neutrophils # (1.3-7.7) k/uL Lymphocytes # (1.0-4.8) k/uL Retic Count (0.10-1.80) % Sodium (137-145) mmol/L Chloride (98-107) mmol/L BUN (7-17) mg/dL Glucose (74-99) mg/dL POC Glucose (mg/dL) 166 H 183 H 188 H (75-99) mg/dL Iron (50-170) ug/dL TIBC (228-460) ug/dL Ferritin (10.0-291.0) ng/mL AST (14-36) U/L Alkaline Phosphatase (38-126) U/L Total Protein (6.3-8.2) g/dL Albumin (3.5-5.0) g/dL Vitamin B12 (200.0-944.0) pg/mL 05/07/20 05/07/20 Range/Units 04:38 06:56 RBC (3.80-5.40) m/uL Hgb (11.4-16.0) gm/dL Hct (34.0-46.0) % MCV (80.0-100.0) fL Neutrophils # (1.3-7.7) k/uL Lymphocytes # (1.0-4.8) k/uL Retic Count (0.10-1.80) % Sodium 136 L (137-145) mmol/L Chloride 108 H (98-107) mmol/L BUN 59 H (7-17) mg/dL Glucose 118 H (74-99) mg/dL POC Glucose (mg/dL) 131 H (75-99) mg/dL Iron (50-170) ug/dL TIBC (228-460) ug/dL Ferritin (10.0-291.0) ng/mL AST 39 H (14-36) U/L Alkaline Phosphatase 232 H (38-126) U/L Total Protein 4.8 L (6.3-8.2) g/dL Albumin 2.1 L (3.5-5.0) g/dL Vitamin B12 (200.0-944.0) pg/mL
--- NOTE | 2020-05-07 13:28 | P.CONS ---
History of Present Illness - Reason for Consult Consult date: 05/06/20 GI Bleed Requesting physician: Leah Hernandez - Chief Complaint Dark bowel movements - History of Present Illness 85-year-old female with multiple medical comorbidities including diabetes mellitus, hypertension, hyperlipidemia, atrial fibrillation, hypothyroidism, macular degeneration and recent diagnosis of infection with COVID-19 who is brought to the hospital for evaluation of dark-colored stool. Patient was at [facility] where she was noted to have darker colored stool and was sent in to the hospital for further evaluation. Patient had multiple bowel movements described as dark burgundy in color. On presentation to the hospital patient was found to have hemoglobin of 9, currently 10.1 on repeat blood draw with INR of 0.9 and stool testing positive for occult blood. On questioning the patient denies any history of abdominal pain or prior peptic ulcer disease. She is on daily aspirin therapy. She had 1 dark-colored bowel movement yesterday but no further blood per rectum today. She is requiring high flow nasal cannula at this time. Review of Systems REVIEW OF SYSTEMS: CONSTITUTIONAL: Denies any fevers, chills, weight change but does report fatigue. CARDIOVASCULAR: Denies any chest pain, palpitations high or low blood pressures RESPIRATORY: Denies any hemoptysis but does report cough and shortness of breath. GENITOURINARY: No dysuria or hematuria. MUSCULOSKELETAL: No weakness reported. SKIN: Denies any new rashes or lesions, jaundice or pallor. PSYCHIATRIC: Denies any depression or anxiety. NEUROLOGY: Denies headache, denies any new focal deficits. EARS/NOSE/THROAT: No recent hearing change, congestion, nasal discharge or sore throat. EYES: No pain in eyes, discharge or change in vision. GASTROINTESTINAL: As per HPI. Past Medical History Past Medical History: Unable to Obtain History of Any Multi-Drug Resistant Organisms: Unobtainable Past Surgical History: Unable to Obtain Additional Past Surgical History / Comment(s): Cholecystectomy, appendectomy, bilateral cataract surgery, left knee meniscus repair Past Anesthesia/Blood Transfusion Reactions: Unable to Obtain Past Psychological History: Unable to Obtain Smoking Status: Former smoker, Unknown if ever smoked Past Alcohol Use History: Unable to Obtain Past Drug Use History: Unable to Obtain - Past Family History Father History Unknown: Yes (Alcohol history) Mother Family Medical History: Diabetes Mellitus, Hypertension Medications and Allergies Home Medications Medication Instructions Recorded Confirmed Type Acetaminophen Tab [Tylenol] 650 mg PO Q4H PRN 05/05/20 05/05/20 History Allopurinol [Zyloprim] 100 mg PO HS 05/05/20 05/05/20 History Aspirin 81 mg PO DAILY 05/05/20 05/05/20 History Atorvastatin Calcium [Lipitor] 40 mg PO HS 05/05/20 05/05/20 History Bisoprolol [Zebeta] 2.5 mg PO DAILY 05/05/20 05/05/20 History Cholecalciferol [Vitamin D3 (25 25 mcg PO DAILY 05/05/20 05/05/20 History Mcg = 1000 Iu)] Cranberry 300mg 300 mg PO BID 05/05/20 05/05/20 History Donepezil [Aricept] 5 mg PO HS 05/05/20 05/05/20 History Ferrous Sulfate [Feosol] 325 mg PO DAILY 05/05/20 05/05/20 History Furosemide [Lasix] 20 mg PO Q12H PRN 05/05/20 05/05/20 History Glucerna Shake 120 can PO BID@0900,1700 05/05/20 05/05/20 History Lactobacillus Acidophilus 1 tab PO DAILY 05/05/20 05/05/20 History [Acidophilus] Levothyroxine Sodium [Synthroid] 150 mcg PO HS 05/05/20 05/05/20 History Multivitamins, Thera [Multivitamin 1 tab PO DAILY 05/05/20 05/05/20 History (formulary)] busPIRone HCl [Buspar] 10 mg PO BID@0900,2100 05/05/20 05/05/20 History busPIRone HCl [Buspar] 20 mg PO DAILY@1200 05/05/20 05/05/20 History glipiZIDE [Glucotrol] 10 mg PO BID@0900,1700 05/05/20 05/05/20 History lisinopriL [Zestril] 20 mg PO DAILY 05/05/20 05/05/20 History traZODone HCL 25 mg PO HS 05/05/20 05/05/20 History Allergies Allergy/AdvReac Type Severity Reaction Status Date / Time clarithromycin [From Biaxin] Allergy Unknown Verified 05/05/20 15:45 Sulfa (Sulfonamide Allergy Unknown Verified 05/05/20 15:45 Antibiotics) zolpidem [From Ambien] Allergy Unknown Verified 05/05/20 15:45 Physical Exam Vitals: Vital Signs Temp Pulse Pulse Pulse Resp BP BP 05/06/20 10:48 05/06/20 10:00 97.8 F 64 18 131/73 05/06/20 05:50 97.6 F 65 14 108/58 05/06/20 02:35 97.0 F L 66 14 100/49 05/05/20 22:05 97.7 F 59 L 12 147/86 05/05/20 19:00 12 05/05/20 18:00 97.8 F 53 L 16 108/65 05/05/20 17:02 97.8 F 18 05/05/20 17:00 58 L 18 111/58 05/05/20 13:56 57 L 18 107/48 05/05/20 13:11 99.6 F 73 16 139/58 Pulse Ox 05/06/20 10:48 93 L 05/06/20 10:00 95 05/06/20 05:50 98 05/06/20 02:35 99 05/05/20 22:05 99 05/05/20 19:00 05/05/20 18:00 100 05/05/20 17:02 94 L 05/05/20 17:00 95 05/05/20 13:56 98 05/05/20 13:11 96 Intake and Output 05/05/20 05/06/20 05/06/20 22:59 06:59 14:59 Output Total 300 Balance -300 Output: Urine 300 Other: Voiding Method Indwelling Catheter Indwelling Catheter # Bowel Movements 1 3 Weight 81.647 kg On physical examination, patient appears comfortable in no apparent distress. HEAD: Normocephalic, atraumatic. EYES: No scleral icterus. No conjunctival injection. MOUTH: No lesions, tongue midline. NECK: Trachea midline, no gross abnormalities. CHEST: Decreased air entry in all lung hutson. HEART: S1-S2 appreciated. ABDOMEN: Soft, nontender to palpation. Bowel sounds are positive. No organomegaly. No guarding or rigidity. EXTREMITIES: No pedal edema. SKIN: No rashes, no jaundice. NEUROLOGIC: Alert and oriented to person. Results CBC & Chem 7: 05/07/20 04:38 05/07/20 04:38 Labs: Abnormal Lab Results - Last 24 Hours (Table) 05/05/20 05/05/20 05/05/20 Range/Units 13:30 13:30 13:30 RBC 2.79 L (3.80-5.40) m/uL Hgb 9.0 L (11.4-16.0) gm/dL Hct 27.3 L (34.0-46.0) % MCV (80.0-100.0) fL Neutrophils # 8.1 H (1.3-7.7) k/uL Lymphocytes # 0.7 L (1.0-4.8) k/uL APTT 20.1 L (22.0-30.0) sec Sodium (137-145) mmol/L BUN (7-17) mg/dL Glucose (74-99) mg/dL POC Glucose (mg/dL) (75-99) mg/dL Calcium (8.4-10.2) mg/dL AST (14-36) U/L Alkaline Phosphatase (38-126) U/L Total Protein (6.3-8.2) g/dL Albumin (3.5-5.0) g/dL Stool Occult Blood Positive H (Negative) Coronavirus (PCR) (Not Detectd) 05/05/20 05/05/20 05/06/20 Range/Units 13:30 15:11 08:52 RBC (3.80-5.40) m/uL Hgb (11.4-16.0) gm/dL Hct (34.0-46.0) % MCV (80.0-100.0) fL Neutrophils # (1.3-7.7) k/uL Lymphocytes # (1.0-4.8) k/uL APTT (22.0-30.0) sec Sodium 134 L (137-145) mmol/L BUN 58 H (7-17) mg/dL Glucose 272 H (74-99) mg/dL POC Glucose (mg/dL) 218 H (75-99) mg/dL Calcium 8.3 L (8.4-10.2) mg/dL AST 39 H (14-36) U/L Alkaline Phosphatase 217 H (38-126) U/L Total Protein 4.8 L (6.3-8.2) g/dL Albumin 2.1 L (3.5-5.0) g/dL Stool Occult Blood (Negative) Coronavirus (PCR) Detected A (Not Detectd) 05/06/20 05/06/20 05/06/20 Range/Units 10:56 10:56 11:52 RBC 3.06 L (3.80-5.40) m/uL Hgb 10.1 L (11.4-16.0) gm/dL Hct 30.7 L (34.0-46.0) % MCV 100.5 H (80.0-100.0) fL Neutrophils # 9.2 H (1.3-7.7) k/uL Lymphocytes # 0.5 L (1.0-4.8) k/uL APTT (22.0-30.0) sec Sodium 136 L (137-145) mmol/L BUN 59 H (7-17) mg/dL Glucose 290 H (74-99) mg/dL POC Glucose (mg/dL) 166 H (75-99) mg/dL Calcium (8.4-10.2) mg/dL AST 38 H (14-36) U/L Alkaline Phosphatase 267 H (38-126) U/L Total Protein 5.5 L (6.3-8.2) g/dL Albumin 2.6 L (3.5-5.0) g/dL Stool Occult Blood (Negative) Coronavirus (PCR) (Not Detectd) Chest x-ray: report reviewed Assessment and Plan (1) Melena Narrative/Plan: 85-year-old female with multiple medical comorbidities currently being treated for infection with COVID-19. Patient noted to have dark-colored bowel movements and fall in hemoglobin at 9 on presentation currently 10.1. He denies any history of peptic ulcer disease. She is unsure of prior EGD but does report remote history of colonoscopy. She does not believe she is on any NSAID medication but does take daily iron. Unclear etiology, may be related to gastritis/esophagitis, peptic ulcer disease, AVM, or other etiology. Current Visit: Yes Status: Acute Code(s): K92.1 - MELENA SNOMED Code(s): 1914122 (2) Stool guaiac positive Current Visit: Yes Status: Acute Code(s): R19.5 - OTHER FECAL ABNORMALITIES SNOMED Code(s): 81083139 Plan: Supportive care Okay for clear liquid diet Continue to monitor hemoglobin and hematocrit and transfuse as needed Continue to monitor for signs or symptoms of GI bleeding Anemia laboratory evaluation ordered Continue PPI therapy Avoid anticoagulation therapy at this time Patient currently requiring supplemental oxygen with high flow nasal cannula and would be high risk for endoscopic evaluation at this time, if further evidence of bleeding will reevaluate at that time Thank you for allowing us to participate in the care of the patient
--- NOTE | 2020-05-07 15:15 | P.PN ---
Subjective Progress Note Date: 05/07/20 Principal diagnosis: Melena An 85-year-old female who is seen in follow-up evaluation with a recent diagnosis of Coban 19 infection who was brought into the hospital for further e valuation of dark colored stool. The patient was at [facility] where was noted she had dark colored stool and sent in to the hospital for evaluation. Nursing staff here stated the patient had a very large black tarry stool through the evening. Patient did have a drop in hemoglobin to 8.4 today. The patient is requiring 15 L a high flow oxygen. Patient denies any abdominal pain, nausea, or vomiting. Patient states she was not aware that she was having dark colored stools. Objective - Vital Signs Vital signs: Vital Signs Temp 96.6 F L 05/07/20 06:09 Pulse 64 05/07/20 06:09 Resp 18 05/07/20 06:09 BP 105/50 05/07/20 06:09 Pulse Ox 90 L 05/07/20 08:29 Intake & Output 05/06/20 05/07/20 05/07/20 18:59 06:59 18:59 Output Total 200 300 Balance -200 -300 Weight 81.647 kg Output: Urine 200 300 Other: Voiding Method Indwelling Catheter Indwelling Catheter Indwelling Catheter # Bowel Movements 1 0 - Exam General appearance: The patient is alert, oriented, appears in no acute distress. HET: Head is normocephalic and atraumatic. Conjunctiva pink. Sclera anicteric. Neck: Supple without lymphadenopathy. Abdomen: Soft, obese, nontender, nondistended with bowel sounds. No guarding or rigidity. Extremities: Normal skin color and turgor. No pedal edema Skin: No rashes, no jaundice Neurological: No focal deficits. Alert and oriented 3. - Labs CBC & Chem 7: 05/07/20 04:38 05/07/20 04:38 Labs: Abnormal Lab Results - Last 24 Hours (Table) 05/06/20 05/06/20 05/06/20 Range/Units 10:56 10:56 10:56 WBC (4.50-10.00) X 10*3/uL RBC 3.06 L (3.80-5.40) m/uL Hgb 10.1 L (11.4-16.0) gm/dL Hct 30.7 L (34.0-46.0) % MCV 100.5 H (80.0-100.0) fL MCH (27.0-32.0) pg MCHC (32.0-37.0) g/dL RDW (11.5-14.5) % MPV (9.5-12.2) fL Neutrophils # 9.2 H (1.3-7.7) k/uL Lymphocytes # 0.5 L (1.0-4.8) k/uL Retic Count 3.60 H (0.10-1.80) % Sodium 136 L (137-145) mmol/L Chloride (98-107) mmol/L BUN 59 H (7-17) mg/dL Glucose 290 H (74-99) mg/dL POC Glucose (mg/dL) (75-99) mg/dL Iron 42 L (50-170) ug/dL TIBC 193 L (228-460) ug/dL Ferritin 430.9 H (10.0-291.0) ng/mL AST 38 H (14-36) U/L Alkaline Phosphatase 267 H (38-126) U/L Lactate Dehydrogenase (313-618) U/L C-Reactive Protein (<10.0) mg/L Total Protein 5.5 L (6.3-8.2) g/dL Albumin 2.6 L (3.5-5.0) g/dL Vitamin B12 1466.0 H (200.0-944.0) pg/mL 05/06/20 05/06/20 05/06/20 Range/Units 11:52 16:50 20:10 WBC (4.50-10.00) X 10*3/uL RBC (3.80-5.40) m/uL Hgb (11.4-16.0) gm/dL Hct (34.0-46.0) % MCV (80.0-100.0) fL MCH (27.0-32.0) pg MCHC (32.0-37.0) g/dL RDW (11.5-14.5) % MPV (9.5-12.2) fL Neutrophils # (1.3-7.7) k/uL Lymphocytes # (1.0-4.8) k/uL Retic Count (0.10-1.80) % Sodium (137-145) mmol/L Chloride (98-107) mmol/L BUN (7-17) mg/dL Glucose (74-99) mg/dL POC Glucose (mg/dL) 166 H 183 H 188 H (75-99) mg/dL Iron (50-170) ug/dL TIBC (228-460) ug/dL Ferritin (10.0-291.0) ng/mL AST (14-36) U/L Alkaline Phosphatase (38-126) U/L Lactate Dehydrogenase (313-618) U/L C-Reactive Protein (<10.0) mg/L Total Protein (6.3-8.2) g/dL Albumin (3.5-5.0) g/dL Vitamin B12 (200.0-944.0) pg/mL 05/07/20 05/07/20 05/07/20 Range/Units 04:38 04:38 04:38 WBC 10.44 H (4.50-10.00) X 10*3/uL RBC 2.58 L (3.80-5.40) m/uL Hgb 8.4 L (11.4-16.0) gm/dL Hct 26.3 L (34.0-46.0) % MCV 101.9 H (80.0-100.0) fL MCH 32.6 H (27.0-32.0) pg MCHC 31.9 L (32.0-37.0) g/dL RDW 14.7 H (11.5-14.5) % MPV 13.2 H (9.5-12.2) fL Neutrophils # (1.3-7.7) k/uL Lymphocytes # (1.0-4.8) k/uL Retic Count (0.10-1.80) % Sodium 136 L (137-145) mmol/L Chloride 108 H (98-107) mmol/L BUN 59 H (7-17) mg/dL Glucose 118 H (74-99) mg/dL POC Glucose (mg/dL) (75-99) mg/dL Iron (50-170) ug/dL TIBC (228-460) ug/dL Ferritin (10.0-291.0) ng/mL AST 39 H (14-36) U/L Alkaline Phosphatase 232 H (38-126) U/L Lactate Dehydrogenase 1425 H (313-618) U/L C-Reactive Protein 49.7 H (<10.0) mg/L Total Protein 4.8 L (6.3-8.2) g/dL Albumin 2.1 L (3.5-5.0) g/dL Vitamin B12 (200.0-944.0) pg/mL 05/07/20 Range/Units 06:56 WBC (4.50-10.00) X 10*3/uL RBC (3.80-5.40) m/uL Hgb (11.4-16.0) gm/dL Hct (34.0-46.0) % MCV (80.0-100.0) fL MCH (27.0-32.0) pg MCHC (32.0-37.0) g/dL RDW (11.5-14.5) % MPV (9.5-12.2) fL Neutrophils # (1.3-7.7) k/uL Lymphocytes # (1.0-4.8) k/uL Retic Count (0.10-1.80) % Sodium (137-145) mmol/L Chloride (98-107) mmol/L BUN (7-17) mg/dL Glucose (74-99) mg/dL POC Glucose (mg/dL) 131 H (75-99) mg/dL Iron (50-170) ug/dL TIBC (228-460) ug/dL Ferritin (10.0-291.0) ng/mL AST (14-36) U/L Alkaline Phosphatase (38-126) U/L Lactate Dehydrogenase (313-618) U/L C-Reactive Protein (<10.0) mg/L Total Protein (6.3-8.2) g/dL Albumin (3.5-5.0) g/dL Vitamin B12 (200.0-944.0) pg/mL Assessment and Plan (1) Melena Narrative/Plan: 85-year-old female with multiple medical comorbidities currently being treated for infection with COVID-19. Patient noted to have dark-colored bowel movements and fall in hemoglobin at 9 on presentation currently 10.1. He denies any history of peptic ulcer disease. She is unsure of prior EGD but does report remote history of colonoscopy. She does not believe she is on any NSAID medication but does take daily iron. Unclear etiology, may be related to gastritis/esophagitis, peptic ulcer disease, AVM, or other etiology. Current Visit: Yes Status: Acute Code(s): K92.1 - MELENA SNOMED Code(s): 0236057 (2) Stool guaiac positive Current Visit: Yes Status: Acute Code(s): R19.5 - OTHER FECAL ABNORMALITIES SNOMED Code(s): 82887728 Plan: Supportive care May advance to full liquid diet Continue to monitor hemoglobin and hematocrit and transfuse as needed Continue to monitor for signs or symptoms of GI bleeding Anemia laboratory evaluation ordered Continue PPI therapy Avoid anticoagulation therapy at this time Patient currently requiring supplemental oxygen with high flow nasal cannula and would be high risk for endoscopic evaluation at this time, if further evidence of bleeding will reevaluate at that time Thank you for allowing us to participate in the care of the patient Dr. Darrin Arita I agree with the dictator's note, documented as a scribe by Amy Garzon.
--- NOTE | 2020-05-07 15:45 | P.CNPUL ---
History of Present Illness Consult date: 05/07/20 Reason for consult: pneumonia Chief complaint: GI bleeding, Covid 19 pneumonia History of present illness: 85-year-old female patient, quite debilitated referred to us from [facility] on the [place] where she was rehabilitating following a left ankle fracture. She was initially treated for her fracture at [facility] [place]. The patient was also diagnosed having positive Covid 19 on 04/18/2020. At that time the patient was treated with oxygen, Decadron, and no reported history of administration monoclonal antibodies or Remdesivir. She is known to have multiple other medical problems and diabetes mellitus type 2, hypertension, hyperlipidemia, chronic atrial fibrillation, hypothyroidism and macular degeneration. She has osteoporosis, severe kyphoscoliosis of the spine, severe central canal stenosis at level of L4 addition to compression fracture multiple levels in her T-spine. In addition, the patient presented to the emergency department this time because of black tarry stool. She is not taking any follow anticoagulants. I'm not sure if she was given anticoagulation at time of her Covid 19 infection. In any rate, the patient has normal coagulation profile. No previous history of peptic ulcer disease. No hematemesis. Presentation was consistent with upper GI bleeding. She did have another large black tarry stool on the morning of 05/07/2019. Currently the patient on oxygen at 15 L per minute nasal cannula. No reported aspiration. Chest x-ray is consistent with patchy bilateral pulmonary interstitial infiltrates and this is typical of an underlying Covid 19 related pneumonia. Despite this high adequate oxygen requirements, the patient is hemodynamically stable and she is not having any major respiratory distress and her white cell count of 10.4 and the most recent hemoglobin is at 8.4 which dropped down from 10.1. D-dimer is at 4.21. Creatinine is at 59 with a creatinine 0.8. LDL still elevated at 1425, CRP is elevated at 49.7, LFTs are showing some mild elevation of alkaline phosphatase at 232, AST and ALP are within normal limits with a normal bilirubin. Review of Systems Constitutional: Reports as per HPI, Reports lethargy, Reports malaise, Reports poor appetite, Denies anorexia, Denies chills, Denies chronic headaches, Denies chronic pain, Denies daytime sleepiness, Denies fatigue, Denies fever, Denies night sweats, Denies sweats, Denies weakness, Denies weight gain, Denies weight loss Ears, nose, mouth and throat: Reports as per HPI Cardiovascular: Reports as per HPI Respiratory: Reports as per HPI, denies having any shortness of breath. The patient has a high oxygen requirements of 15 L Gastrointestinal: Reports diarrhea, Reports hematochezia, Reports melena Genitourinary: Reports as per HPI Menstruation: Reports as per HPI Musculoskeletal: Reports as per HPI, chronic kyphoscoliosis changes of her spine and compression fracture of the T-spine Integumentary: Reports as per HPI Neurological: Reports as per HPI, Reports confusion, Reports hearing difficulties, Reports weakness, Denies aphasia, Denies ataxia, Denies balance difficulties, Denies burning pain, Denies change in mentation, Denies change in smell/taste, Denies change in speech, Denies convulsions, Denies double vision, Denies gait dysfunction, Denies head injury, Denies headaches, Denies lack of coordination, Denies loss of vision, Denies memory loss, Denies migraines, Denies motor disturbance, Denies numbness, Denies paralysis, Denies paresthesias, Denies seizures, Denies sensory deficit, Denies spasticity, Denies syncope, Denies tic, Denies tingling, Denies transient paralysis, Denies tremors, Denies vertigo, Denies visual changes Psychiatric: Reports as per HPI, Denies anhedonia, Denies anxiety, Denies anxiety attacks, Denies change in appetite, Denies change in libido, Denies change in sleep habits, Denies confusion, Denies depression, Denies difficulty concentrating, Denies disorientation, Denies hallucinations, Denies hope lessness, Denies hypersomnia, Denies insomnia, Denies irritability, Denies memory loss, Denies mood swings, Denies paranoia, Denies sadness/tearfulness, Denies sleep disturbances, Denies suicidal ideation Endocrine: Reports as per HPI Hematologic/Lymphatic: Reports as per HPI Allergic/Immunologic: Reports as per HPI, Denies allergic rhinitis, Denies anaphylaxis, Denies angioedema, Denies gluten intolerance, Denies persistent infections, Denies seasonal allergies, Denies urticaria, Denies wheezing Past Medical History Past Medical History: Atrial Fibrillation, Diabetes Mellitus, Hyperlipidemia, Hypertension, Thyroid Disorder Additional Past Medical History / Comment(s): Covid 19 pneumonia on 04/18/2020, macular degeneration, severe central canal L4 stenosis in addition compression fracture of the T11 and T12 and L4 spine. Diabetes mellitus type 2, hypertension, hyperlipidemia, chronic atrial fibrillation, hypothyroidism, history of left ankle fracture History of Any Multi-Drug Resistant Organisms: Unobtainable Past Surgical History: Unable to Obtain Additional Past Surgical History / Comment(s): Cholecystectomy, appendectomy, bilateral cataract surgery, left knee meniscus repair Past Anesthesia/Blood Transfusion Reactions: Unable to Obtain Past Psychological History: Unable to Obtain Smoking Status: Former smoker, Unknown if ever smoked Past Alcohol Use History: Unable to Obtain Past Drug Use History: Unable to Obtain - Past Family History Father History Unknown: Yes (Alcohol history) Mother Family Medical History: Diabetes Mellitus, Hypertension Medications and Allergies Home Medications Medication Instructions Recorded Confirmed Type Acetaminophen Tab [Tylenol] 650 mg PO Q4H PRN 05/05/20 05/05/20 History Allopurinol [Zyloprim] 100 mg PO HS 05/05/20 05/05/20 History Aspirin 81 mg PO DAILY 05/05/20 05/05/20 History Atorvastatin Calcium [Lipitor] 40 mg PO HS 05/05/20 05/05/20 History Bisoprolol [Zebeta] 2.5 mg PO DAILY 05/05/20 05/05/20 History Cholecalciferol [Vitamin D3 (25 25 mcg PO DAILY 05/05/20 05/05/20 History Mcg = 1000 Iu)] Cranberry 300mg 300 mg PO BID 05/05/20 05/05/20 History Donepezil [Aricept] 5 mg PO HS 05/05/20 05/05/20 History Ferrous Sulfate [Feosol] 325 mg PO DAILY 05/05/20 05/05/20 History Furosemide [Lasix] 20 mg PO Q12H PRN 05/05/20 05/05/20 History Glucerna Shake 120 can PO BID@0900,1700 05/05/20 05/05/20 History Lactobacillus Acidophilus 1 tab PO DAILY 05/05/20 05/05/20 History [Acidophilus] Levothyroxine Sodium [Synthroid] 150 mcg PO HS 05/05/20 05/05/20 History Multivitamins, Thera [Multivitamin 1 tab PO DAILY 05/05/20 05/05/20 History (formulary)] busPIRone HCl [Buspar] 10 mg PO BID@0900,2100 05/05/20 05/05/20 History busPIRone HCl [Buspar] 20 mg PO DAILY@1200 05/05/20 05/05/20 History glipiZIDE [Glucotrol] 10 mg PO BID@0900,1700 05/05/20 05/05/20 History lisinopriL [Zestril] 20 mg PO DAILY 05/05/20 05/05/20 History traZODone HCL 25 mg PO HS 05/05/20 05/05/20 History Allergies Allergy/AdvReac Type Severity Reaction Status Date / Time clarithromycin [From Biaxin] Allergy Unknown Verified 05/05/20 15:45 Sulfa (Sulfonamide Allergy Unknown Verified 05/05/20 15:45 Antibiotics) zolpidem [From Ambien] Allergy Unknown Verified 05/05/20 15:45 Physical Exam Vitals: Vital Signs Temp Pulse Pulse Resp BP Pulse Ox 05/07/20 15:33 96 05/07/20 14:37 98.2 F 65 18 103/50 100 05/07/20 10:54 97.8 F 55 L 17 105/42 97 05/07/20 08:29 90 L 05/07/20 06:09 96.6 F L 64 18 105/50 90 L 05/07/20 02:00 96.3 F L 57 L 16 94/52 92 L 05/06/20 22:01 97.0 F L 58 L 22 127/74 99 05/06/20 18:18 62 87 L Intake and Output 05/07/20 05/07/20 05/07/20 06:59 14:59 22:59 Output Total 300 Balance -300 Output: Urine 300 Other: Voiding Method Indwelling Catheter # Bowel Movements 0 Gen. appearance the patient is calm comfortable, the patient has severe kyphoscoliosis of the spine and is obvious on inspection. No signs of respiratory distress currently on 15 L about 2 by nasal cannula. Head exam was generally normal. There was no scleral icterus or corneal arcus. Mucous membranes were moist. Neck was supple and without jugular venous distension, thyromegaly, or carotid bruits. Carotids were easily palpable bilaterally. There was no adenopathy. Lungs sounds are diminished in the thoracic spine is kyphotic and scoliotic and there is crackles in lung bases bilaterally. Cardiac exam revealed the PMI to be normally situated and sized. The rhythm was regular and no extrasystoles were noted during several minutes of auscultation. The first and second heart sounds were normal and physiologic splitting of the second heart sound was noted. There were no murmurs, rubs, clicks, or gallops. Abdominal exam revealed normal bowel sounds. The abdomen was soft, non-tender, and without masses, organomegaly, or appreciable enlargement of the abdominal aorta. Examination of the extremities revealed easily palpable radial, femoral and pedal pulses. There was no cyanosis, clubbing or edema. The patient has a left ankle immobilizer cast Neurologic exam, the patient is confused and oriented 1 to 2X most and the patient has generalized motor weakness in all 4 extremities. Neurologic exam is nonfocal. Examination of the skin revealed no evidence of significant rashes, suspicious appearing nevi or other concerning lesions. Results - Laboratory Findings CBC and BMP: 05/07/20 04:38 05/07/20 04:38 PT/INR, D-dimer PT 9.9 sec (9.0-12.0) 05/05/20 13:30 INR 0.9 (<1.2) 05/05/20 13:30 D-Dimer 4.21 mg/L FEU (<0.60) H 05/07/20 10:35 Abnormal lab findings: Abnormal Labs 05/05/20 05/05/20 05/05/20 13:30 13:30 13:30 WBC RBC 2.79 L Hgb 9.0 L Hct 27.3 L MCV MCH MCHC RDW MPV Neutrophils # 8.1 H Lymphocytes # 0.7 L Retic Count APTT 20.1 L D-Dimer Sodium Chloride BUN Glucose POC Glucose (mg/dL) Calcium Iron TIBC Ferritin AST Alkaline Phosphatase Lactate Dehydrogenase C-Reactive Protein Total Protein Albumin Vitamin B12 Stool Occult Blood Positive H Coronavirus (PCR) 05/05/20 05/05/20 05/06/20 13:30 15:11 08:52 WBC RBC Hgb Hct MCV MCH MCHC RDW MPV Neutrophils # Lymphocytes # Retic Count APTT D-Dimer Sodium 134 L Chloride BUN 58 H Glucose 272 H POC Glucose (mg/dL) 218 H Calcium 8.3 L Iron TIBC Ferritin AST 39 H Alkaline Phosphatase 217 H Lactate Dehydrogenase C-Reactive Protein Total Protein 4.8 L Albumin 2.1 L Vitamin B12 Stool Occult Blood Coronavirus (PCR) Detected A 05/06/20 05/06/20 05/06/20 10:56 10:56 10:56 WBC RBC 3.06 L Hgb 10.1 L Hct 30.7 L MCV 100.5 H MCH MCHC RDW MPV Neutrophils # 9.2 H Lymphocytes # 0.5 L Retic Count 3.60 H APTT D-Dimer Sodium 136 L Chloride BUN 59 H Glucose 290 H POC Glucose (mg/dL) Calcium Iron 42 L TIBC 193 L Ferritin 430.9 H AST 38 H Alkaline Phosphatase 267 H Lactate Dehydrogenase C-Reactive Protein Total Protein 5.5 L Albumin 2.6 L Vitamin B12 1466.0 H Stool Occult Blood Coronavirus (PCR) 05/06/20 05/06/20 05/06/20 11:52 16:50 20:10 WBC RBC Hgb Hct MCV MCH MCHC RDW MPV Neutrophils # Lymphocytes # Retic Count APTT D-Dimer Sodium Chloride BUN Glucose POC Glucose (mg/dL) 166 H 183 H 188 H Calcium Iron TIBC Ferritin AST Alkaline Phosphatase Lactate Dehydrogenase C-Reactive Protein Total Protein Albumin Vitamin B12 Stool Occult Blood Coronavirus (PCR) 05/07/20 05/07/20 05/07/20 04:38 04:38 04:38 WBC 10.44 H RBC 2.58 L Hgb 8.4 L Hct 26.3 L MCV 101.9 H MCH 32.6 H MCHC 31.9 L RDW 14.7 H MPV 13.2 H Neutrophils # Lymphocytes # Retic Count APTT D-Dimer Sodium 136 L Chloride 108 H BUN 59 H Glucose 118 H POC Glucose (mg/dL) Calcium Iron TIBC Ferritin AST 39 H Alkaline Phosphatase 232 H Lactate Dehydrogenase 1425 H C-Reactive Protein 49.7 H Total Protein 4.8 L Albumin 2.1 L Vitamin B12 Stool Occult Blood Coronavirus (PCR) 05/07/20 05/07/20 05/07/20 06:56 10:35 11:51 WBC RBC Hgb Hct MCV MCH MCHC RDW MPV Neutrophils # Lymphocytes # Retic Count APTT D-Dimer 4.21 H Sodium Chloride BUN Glucose POC Glucose (mg/dL) 131 H 295 H Calcium Iron TIBC Ferritin AST Alkaline Phosphatase Lactate Dehydrogenase C-Reactive Protein Total Protein Albumin Vitamin B12 Stool Occult Blood Coronavirus (PCR) - Diagnostic Findings Chest x-ray: image reviewed Assessment and Plan Plan: 1 Covid 19 related pneumonia diagnosed approximately 2 weeks ago and the patient does have residual pulmonary infiltrates and residual hypoxemia and currently is on 15 L of oxygen by nasal cannula. I am a bit concerned about the worsening oxygenation. This could be related to progression of her underlying Covid 19 related pneumonia. I do not have any signs of superinfection with bacteria this point in time. No signs of any decub's at heart failure. No signs of any aspiration. 2 upper GI bleed as the patient was having melanotic stool and the patient's hemoglobin had dropped from a baseline of 13.5 from 04/18/2020. No transfusions are being given for now and the patient is being monitored clinically. No plans to do any EGD at this point in time based on age and comorbidities. 3 hypertension 4 history of coronary artery disease with previous non-STEMI and the patient has a preserved LV function with moderate enlargement of the RA, and secondary pulmonary hypertension with a PA pressure of around 55 5 chronic stage II kidney disease 6 hypothyroidism 7 chronic thoracic kyphosis addition to T-spine compression fracture multiple levels in addition to lumbar spine compression fractures 8 history of lumbar spine stenosis at the level of L4 9 history of left ankle fracture and the patient is currently wearing a immobilizing cast 10 dementia 11 iron deficiency anemia 12 paroxysmal atrial fibrillation/flutter, no anticoagulants for now and the patient was on aspirin which is currently on hold Plan Hold anticoagulants for now Offered the patient compression stockings to her lower extremity Decadron 6 mg by mouth daily will be resumed Monitor oxygenation and wean down the FiO2 to maintain saturation above 90% Monitor inflammatory markers which are quite elevated at this point in time No immediate plans to do a endoscopy or EGD unless the patient's condition decompensated or she develops worsening GI bleed that cannot be controlled with conservative measures Put the patient Protonix 40 mg IV every 12 hours GI consultation is already been obtained We'll continue to follow. She is currently being hydrated with fluids with normal state rate of 75 mL an hour.
[2020-05-07 16:52] LABS: Glucose,Whole Blood 272 mg/dL (75-99)
[2020-05-07 21:15] LABS: Glucose,Whole Blood 391 mg/dL (75-99)
[2020-05-07] MEDS: traZODone HCL 50 MG TAB PO SCH (21:47)
[2020-05-07] MEDS: allopurinoL 100 MG TAB PO SCH (21:48)
[2020-05-07] MEDS: LEVOTHYROXINE 75 MCG TAB PO SCH (21:48)
[2020-05-07] MEDS: ATORVASTATIN 40 MG TAB PO SCH (21:48)
[2020-05-07] MEDS: DONEPEZIL 5 MG TAB PO SCH (21:48)
[2020-05-08 07:18] LABS: Glucose,Whole Blood 218 mg/dL (75-99)
[2020-05-08 08:16] LABS: HCT 26.2 % (34.0-46.0); HGB 8.8 gm/dL (11.4-16.0); MCH 33.1 pg (25.0-35.0); MCHC 33.6 g/dL (31.0-37.0); MCV 98.4 fL (80.0-100.0); Macrocytosis Slight; Mean Platelet Volume 10.2; Platelet Count 188 k/uL (150-450); RBC 2.66 m/uL (3.80-5.40); RDW 15.1 % (11.5-15.5); WBC 8.5 k/uL (3.8-10.6)
[2020-05-08] MEDS: BISOPROLOL 5 MG TAB PO SCH (09:24)
[2020-05-08] MEDS: MULTIVITAMINS, THERA 1 EACH TAB PO SCH (09:25)
[2020-05-08] MEDS: dexAMETHasone 2 MG TAB PO SCH (09:25)
[2020-05-08] MEDS: busPIRone HCl 10 MG TAB PO SCH ×2 (09:25→21:25)
[2020-05-08] MEDS: ZINC SULFATE 220 MG CAP PO SCH (09:25)
[2020-05-08] MEDS: PANTOPRAZOLE 40 MG/10 ML VIAL IVP SCH ×2 (09:25→21:26)
[2020-05-08] MEDS: CHOLECALCIFEROL 25 MCG (1000 IU) TABLET PO SCH (09:25)
[2020-05-08] MEDS: ASCORBIC ACID 500 MG TAB PO SCH (09:25)
[2020-05-08] MEDS: INSULIN ASPART (NovoLOG) 100 UNIT/ML VIAL SQ SCH ×4 (09:25→21:26)
--- NOTE | 2020-05-08 11:36 | PN ---
PROGRESS NOTE DATE OF SERVICE: 05/08/2020 Patient is an 85-year-old pleasant white female admitted to the hospital with COVID-19 infection and presently remains on 15 L of high-flow oxygen. She apparently did have some bleeding with dark colored stools at the time of admission to the hospital and hemoglobin dropped from 10 g/dL to 8.4 g yesterday. She did not have any further episodes of bleeding. She reports no abdominal pain. No nausea, no vomiting. Continues to required high-flow oxygen at the present time. PHYSICAL EXAMINATION: GENERAL: She appears comfortable. No apparent distress. VITAL SIGNS: Stable. Blood pressure is 112/86, pulse rate 93, temperature 97.7. HEENT: Examination unremarkable. Conjunctivae pink. Sclerae anicteric. Oral cavity, no lesions. NECK: No JVD or lymph node enlargement. Chest and heart were not auscultated. ABDOMEN: Soft. Bowel sounds are positive. EXTREMITIES: No pedal edema. NEURO: She is alert and oriented x3. LABS: From today hemoglobin is 8.8, WBC 8.5, and platelets are normal. IMPRESSION: 1. Anemia with black tarry stools. At the time of admission to the hospital she dropped hemoglobin from 10 to 8.8 g/dL. For the last 2 days, she did not have any further episodes of bleeding. Remains hemodynamically stable. Today hemoglobin is 8.4 g/dL. Remains on Protonix 40 mg daily. 2. COVID-19 pneumonia on high-flow oxygen at 15 L. Pulmonary is following the patient closely. 3. History of hypertension and hyperlipidemia. RECOMMENDATIONS: 1. Continue Protonix 40 mg twice daily. 2. Advance diet as tolerated. 3. Given underlying respiratory status, not a candidate for any endoscopic intervention at the present time. 4. Monitor labs closely. 5. Continue management of COVID-19 pneumonia as per Pulmonary and we will follow with you closely. Thank you for this consultation. MMODL / IJN: [id number] /
[2020-05-08 12:13] LABS: Glucose,Whole Blood 292 mg/dL (75-99)
[2020-05-08] MEDS: SODIUM CHLORIDE 0.9% 1,000 ML IV SCH (12:34)
--- NOTE | 2020-05-08 14:02 | P.PN ---
Subjective Progress Note Date: 05/08/20 85-year-old female patient, quite debilitated referred to us from [facility] the [place] where she was rehabilitating following a left ankle fracture. She was initially treated for her fracture at [facility] and [place]. The patient was also diagnosed having positive Covid 19 on 04/18/2020. At that time the patient was treated with oxygen, Decadron, and no reported history of administration monoclonal antibodies or Remdesivir. She is known to have multiple other medical problems and diabetes mellitus type 2, hypertension, hyperlipidemia, chronic atrial fibrillation, hypothyroidism and macular degeneration. She has osteoporosis, severe kyphoscoliosis of the spine, severe central canal stenosis at level of L4 addition to compression fracture multiple levels in her T-spine. In addition, the patient presented to the emergency department this time because of black tarry stool. She is not taking any follow anticoagulants. I'm not sure if she was given anticoagulation at time of her Covid 19 infection. In any rate, the patient has normal coagulation profile. No previous history of peptic ulcer disease. No hematemesis. Presentation was consistent with upper GI bleeding. She did have another large black tarry stool on the morning of 05/07/2019. Currently the patient on oxygen at 15 L per minute nasal cannula. No reported aspiration. Chest x-ray is consistent with patchy bilateral pulmonary interstitial infiltrates and this is typical of an underlying Covid 19 related pneumonia. Despite this high adequate oxygen requirements, the patient is hemodynamically stable and she is not having any major respiratory distress and her white cell count of 10.4 and the most recent hemoglobin is at 8.4 which dropped down from 10.1. D-dimer is at 4.21. Creatinine is at 59 with a creatinine 0.8. LDL still elevated at 1425, CRP is elevated at 49.7, LFTs are showing some mild elevation of alkaline phosphatase at 232, AST and ALP are within normal limits with a normal bilirubin. On today's evaluation the patient's condition is stable. She is being seen in follow-up on 05/08/2020. She is having one bloody bowel movement every day which is melanotic which is small and hemoglobin has remained stable. We have decided to monitor this patient conservatively. Her oxygen level is still the same at 15 L per minute nasal cannula and the pulse ox currently is at 85-90%. Her blood sugar is slightly elevated due to Decadron and her serum blood sugar is up to 218. She is taking is on 6 mg by mouth daily. At the same time she is taking clear liquid/full liquid diet. In terms of blood sugar control, she is on insulin based on a sliding scale coverage. No plans for EGD or colonoscopy at this point in time. Hemoglobin stable at 8.8. No major hemodynamic changes. Objective - Vital Signs Vital signs: Vital Signs Temp 98.6 F 05/08/20 10:35 Pulse 74 05/08/20 10:35 Resp 20 05/08/20 10:35 BP 87/85 05/08/20 10:35 Pulse Ox 86 L 05/08/20 10:35 Intake & Output 05/07/20 05/08/20 05/08/20 18:59 06:59 18:59 Intake Total 240 Output Total 200 950 Balance -200 -950 240 Intake: Oral 240 Output: Urine 200 950 Other: Voiding Method Indwelling Catheter Indwelling Catheter Indwelling Catheter # Bowel Movements 1 1 1 - Exam Gen. appearance the patient is calm comfortable, the patient has severe kyphoscoliosis of the spine and is obvious on inspection. No signs of respiratory distress currently on 15 L about 2 by nasal cannula. Head exam was generally normal. There was no scleral icterus or corneal arcus. Mucous membranes were moist. Neck was supple and without jugular venous distension, thyromegaly, or carotid bruits. Carotids were easily palpable bilaterally. There was no adenopathy. Lungs sounds are diminished in the thoracic spine is kyphotic and scoliotic and there is crackles in lung bases bilaterally. Cardiac exam revealed the PMI to be normally situated and sized. The rhythm was regular and no extrasystoles were noted during several minutes of auscultation. The first and second heart sounds were normal and physiologic splitting of the second heart sound was noted. There were no murmurs, rubs, clicks, or gallops. Abdominal exam revealed normal bowel sounds. The abdomen was soft, non-tender, and without masses, organomegaly, or appreciable enlargement of the abdominal aorta. Examination of the extremities revealed easily palpable radial, femoral and pedal pulses. There was no cyanosis, clubbing or edema. The patient has a left ankle immobilizer cast Neurologic exam, the patient is confused and oriented 1 to 2X most and the patient has generalized motor weakness in all 4 extremities. Neurologic exam is nonfocal. Examination of the skin revealed no evidence of significant rashes, suspicious appearing nevi or other concerning lesions. Results - Labs CBC & Chem 7: 05/08/20 07:39 05/07/20 04:38 Labs: Abnormal Lab Results - Last 24 Hours (Table) 05/07/20 05/07/20 05/07/20 Range/Units 10:35 16:45 21:14 RBC (3.80-5.40) m/uL Hgb (11.4-16.0) gm/dL Hct (34.0-46.0) % POC Glucose (mg/dL) 272 H 391 H (75-99) mg/dL Ferritin 368.4 H (10.0-291.0) ng/mL 05/08/20 05/08/20 05/08/20 Range/Units 07:13 07:39 12:02 RBC 2.66 L (3.80-5.40) m/uL Hgb 8.8 L (11.4-16.0) gm/dL Hct 26.2 L (34.0-46.0) % POC Glucose (mg/dL) 218 H 292 H (75-99) mg/dL Ferritin (10.0-291.0) ng/mL Assessment and Plan Plan: 1 Covid 19 related pneumonia diagnosed approximately 2 weeks ago and the patient does have residual pulmonary infiltrates and residual hypoxemia and currently is on 15 L of oxygen by nasal cannula. I am a bit concerned about the worsening oxygenation. This could be related to progression of her underlying Covid 19 related pneumonia. I do not have any signs of superinfection with bacteria this point in time. No signs of any decub's at heart failure. No signs of any aspiration. The patient is a 15 L of Bactrim by nasal cannula. She remains on Decadron. Inflammatory markers including CRP was 49, LDH was 1425 and repeat levels will be obtained for tomorrow. 2 upper GI bleed as the patient was having melanotic stool and the patient's hemoglobin had dropped from a baseline of 13.5 from 04/18/2020. No transfusions are being given for now and the patient is being monitored clinically. No plans to do any EGD at this point in time based on age and comorbidities. The patient is still having some residual melanotic stools, no active bleeding and hemoglobin stable. 3 hypertension 4 history of coronary artery disease with previous non-STEMI and the patient has a preserved LV function with moderate enlargement of the RA, and secondary pulmonary hypertension with a PA pressure of around 55 5 chronic stage II kidney disease 6 hypothyroidism 7 chronic thoracic kyphosis addition to T-spine compression fracture multiple levels in addition to lumbar spine compression fractures 8 history of lumbar spine stenosis at the level of L4 9 history of left ankle fracture and the patient is currently wearing a immobilizing cast 10 dementia 11 iron deficiency anemia 12 paroxysmal atrial fibrillation/flutter, no anticoagulants for now and the patient was on aspirin which is currently on hold Plan Hold anticoagulants for now Hemoglobin is stable and there is no further episodes of bleeding Obtain a follow-up chest x-ray tomorrow Add Lantus 10 units daily along with signs. Coverage Offered the patient compression stockings to her lower extremity Decadron 6 mg by mouth daily will be resumed Monitor oxygenation and wean down the FiO2 to maintain saturation above 90% Monitor inflammatory markers which are quite elevated at this point in time No immediate plans to do a endoscopy or EGD unless the patient's condition decompensated or she develops worsening GI bleed that cannot be controlled with conservative measures Continue Protonix 40 mg IV every 12 hours GI consultation is already been obtained, no plans for colonoscopy She is currently being hydrated with fluids with normal state rate of 75 mL an hour. We'll continue to follow.
--- NOTE | 2020-05-08 17:39 | P.PN ---
Subjective Progress Note Date: 05/08/20 HISTORY OF PRESENT ILLNESS This is a pleasant 85-year-old female with unknown PCP, [place]. She sustained a fracture on t he left ankle, for which Was [facility] at [facility],, she also was diagnosed to have cough. On 04/18/2020, for which family members are in critical condition, apparently the son was in ICU at that time of her hospitalization. She required O2 at nighttime, for which because of cold, now she required O2 [id number]. She was given dexamethasone, and no antibiotic was given at that time, and no monoclonal antibodies is given at the time, remdesivir not required . patient has underlying diabetes mellitus type 2, hypertension, hyperlipidemia, atrial fibrillation, hypothyroidism, macular degeneration, hepatitis 50 years ago, osteoporosis, right broken wrist, severe central canal stenosis L4, compression fractures T 11 2 L4, She presents to emergency room with blood as it was black and burgundy in the stool, as well as mental status changes, for which the original recommendation comes from myself at [facility] on [facility]. Patient has diarrhea. Weaker than usual and has diminished appetite. No respiratory distress when evaluated 05/06: Patient had one black tarry stool today. C. difficile toxin was not tested as he levi She is known to have bilateral lower extremity edema specially left ankle edema for which ultrasound ordered to rule out DVT. Telemetry will be discontinued. H. pylori is pending. Patient has been afebrile, heart rate 65, blood pressure 108/58, pulse ox 98% on 4L nc. 05/07: The patient did have a very large black tarry stool this morning. She denies having any abdominal pain. She remains pleasantly confused. She is on 15 L high flow nasal cannula and nonrebreather which was started yesterday. She had some decreased urine output as well. Blood pressure is marginal. Lisinopril will be discontinued. IV fluids at 75 mL per hour. Stool to be checked for C. difficile colitis. SUSANA michelle added. Heparin subcu discontinued. Consult added for Dr. Redman regarding hypoxia and Covid 19. Chest x-ray ordered. 05/08:, Patient does not complain of anything significant, however she is requiring 15 L of nasal cannula O2, pulse ox at 84-90%, she is on dexamethasone, hemoglobin is stable at 8.8, no plans for EGD or colonoscopy at this time from GI, secondary to hypoxemic respiratory failure. Blood sugars higher, on Decadron 6 mg daily, Lantus or edema initiated at 10 units, for iron studies, Covid markers trending downward slightly, check for CK, a bile for rhabdo, monitor for nutrition check A1c REVIEW OF SYSTEMS Constitutional: No fever, no chills, no night sweats. No weight change. Pos itive weakness, fatigue or lethargy. No daytime sleepiness. EENT: No headache. No blurred vision or double vision, no loss of vision. No loss of Hearing, no ringing in the ears, no dizziness. No nasal drainage or congestion. No epistaxis. No sore throat. Lungs: Reports shortness of breath, cough, no sputum production. No wheezing. Cardiovascular: No chest pain, noted lower extremity edema. No palpitations. No paroxysmal nocturnal dyspnea. No orthopnea. No lightheadedness or dizziness. No syncopal episodes. Abdominal: No abdominal pain. No nausea, vomiting. Reports diarrhea. No c onstipation. Reported tarry stools.. No loss of appetite. Genitourinary: No dysuria, increased frequency, urgency. No urinary retention. Musculoskeletal: No myalgias. Positive muscle weakness, no gait dysfunction, no frequent falls. No back pain. No neck pain. Integumentary: No wounds, no lesions. No rash or pruritus. No unusual bruising. No change in hair or nails. Neurologic: No aphasia. No facial droop. No change in mentation. No head injury. No headache. No paralysis. No paresthesia. Psychiatric: No depression. No anxiety. No mood swings. Endocrine: No abnormal blood sugars. No weight change. Objective - Vital Signs Vital signs: Vital Signs Temp 98.5 F 05/08/20 14:00 Pulse 67 05/08/20 14:00 Resp 16 05/08/20 14:00 BP 93/58 05/08/20 14:00 Pulse Ox 90 L 05/08/20 14:00 Intake & Output 05/07/20 05/08/20 05/08/20 18:59 06:59 18:59 Intake Total 240 Output Total 200 950 300 Balance -200 -950 -60 Intake: Oral 240 Output: Urine 200 950 300 Other: Voiding Method Indwelling Catheter Indwelling Catheter Indwelling Catheter # Bowel Movements 1 1 1 - Constitutional General appearance: Present: average body habitus, cooperative - EENT Eyes: Present: EOMI, dentition normal, normal appearance ENT: Present: hard of hearing, NA/AT, normal oropharynx - Neck Neck: Present: normal ROM - Respiratory Respiratory: bilateral: CTA, negative: diminished, dullness, rales - Cardiovascular Rhythm: regular Heart sounds: normal: S1, S2 Abnormal Heart Sounds: Absent: systolic murmur, diastolic murmur, rub, S3 Gallop, S4 Gallop, click, other - Gastrointestinal General gastrointestinal: Present: normal bowel sounds, soft - Integumentary Integumentary: Present: decreased turgor, normal - Musculoskeletal Musculoskeletal: Present: gait normal, strength equal bilaterally - Psychiatric Psychiatric: Present: A&O x's 3, appropriate affect, intact judgment & insight - Labs CBC & Chem 7: 05/08/20 07:39 05/07/20 04:38 Labs: Abnormal Lab Results - Last 24 Hours (Table) 05/07/20 05/07/20 05/07/20 Range/Units 10:35 16:45 21:14 RBC (3.80-5.40) m/uL Hgb (11.4-16.0) gm/dL Hct (34.0-46.0) % POC Glucose (mg/dL) 272 H 391 H (75-99) mg/dL Ferritin 368.4 H (10.0-291.0) ng/mL 05/08/20 05/08/20 05/08/20 Range/Units 07:13 07:39 12:02 RBC 2.66 L (3.80-5.40) m/uL Hgb 8.8 L (11.4-16.0) gm/dL Hct 26.2 L (34.0-46.0) % POC Glucose (mg/dL) 218 H 292 H (75-99) mg/dL Ferritin (10.0-291.0) ng/mL Assessment and Plan Plan: SSESSMENT AND PLAN 1. Acute black tarry stool, with weakness and increasing confusion and metabolic encephalopathy secondary to acute GI bleed, presenting hemoglobin of 9.0, previous hemoglobin of 13.5 on 04/18/2020, consult with gastroenterology, check iron studies, hold aspirin, will need transfusion if below 7, check for iron studies. GI consult appreciated. Iron studies ordered. No endoscopy at this time. Continue Protonix 40 mg IV push twice daily. 2 History of paroxysmal atrial fibrillation, not on anticoagulation prior to admission except for aspirin 81 mg daily for which it is held secondary to lack started stool, 3 Hypertension, lisinopril discontinued. Continue bisoprolol 2.5 mg daily furosemide was discontinued prior to her admission to [facility] due to dehydration from Covid. Echocardiogram reviewed, 04/20/2020, secondary to non-STEMI, type II [place], mild LVH, severe hypokinesia of right ventricle, normal EF, moderate enlargement right atrium, thickened mitral valve, I right ventricle systolic pressure 55, consistent with pulmonary hypertension, ejection fraction 65% moderate TR 4 . Acute hypoxic respiratory failure secondary to Covid infection diagnosed 04/18/2020 given dexamethasone, did not require remdesivir, or monoclonal anti- body infusion currently on O2 supplementation, stable without any respiratory distress however has significant hypoxemia. Chest x-ray. Inflammatory markers, consult with pulmo medicine. 5 Acute covid-19 infection diagnosed 04/18 given dexamethasone, did not required them visibly during the last admission, nor did she receive any monoclonal antibody infusion Ferritin markers are trending down CRP is still elevated. D- dimer elevated. 6Hyperglycemia related with dexamethasone, check for A1c, started on Lantus 10 units daily insulin coverage 6 CKD stage II with recent CARMINA secondary to dehydration, Covid 7 Hypothyroidism, on levothyroxine 150 g daily 8 generalized anxiety disorder, on BuSpar 10 mg 3 times a day 9 Previous tobacco use, quit in 1975 10 Discharge planning, most likely return to subacute rehab, [facility] 11 History of diabetes mellitus type 2, Accu-Cheks before meals and at bedtime, patient on glipizide 10 mg daily, on hold secondary to decreased appetite, check for blood sugars and sliding scale prior to admission check A1c possible diet controlled 12 Macular degeneration 13 History of severe spinal stenosis L4, 14 Acute left ankle fracture, need to be clarified for weightbearing status left ankle, 15 Dementia, on Aricept 5 mg daily 16 iron deficiency anemia on iron tablets 17 Insomnia and depression, on trazodone 25 mg at bedtime DVT prophylaxis SUSANA michelle, patient had fractured left ankle, at risk for blood clots in the leg, aspirin is held, we'll going to give low dose heparin 5000 units every 12 hours GI prophylaxis 5 Hyperlipidemia, on atorvastatin 40 mg daily check CK to evaluate for rhabdo, might need to discontinue Prognosis guarded
[2020-05-08 17:51] LABS: Glucose,Whole Blood 321 mg/dL (75-99)
[2020-05-08] MEDS ORDERED: INSULIN DETEMIR (LEVEMIR) 100 UNIT/ML SYR SQ SCH (21:00)
[2020-05-08 21:16] LABS: Glucose,Whole Blood 188 mg/dL (75-99)
[2020-05-08] MEDS: allopurinoL 100 MG TAB PO SCH (21:25)
[2020-05-08] MEDS: LEVOTHYROXINE 75 MCG TAB PO SCH (21:25)
[2020-05-08] MEDS: ATORVASTATIN 40 MG TAB PO SCH (21:25)
[2020-05-08] MEDS: traZODone HCL 50 MG TAB PO SCH (21:25)
[2020-05-08] MEDS: DONEPEZIL 5 MG TAB PO SCH (21:36)
[2020-05-09] MEDS: SODIUM CHLORIDE 0.9% 1,000 ML IV SCH ×2 (01:23→13:59)
[2020-05-09 07:16] LABS: Glucose,Whole Blood 74 mg/dL (75-99)
[2020-05-09 07:42] LABS: African American GFR (CKD) 31 (>60 ml/min/1.73 sqM); Anion Gap 7 mmol/L; Blood Urea Nitrogen 63 mg/dL (7-17); Calcium 8.1 mg/dL (8.4-10.2); Carbon Dioxide 19 mmol/L (22-30); Chloride 110 mmol/L (98-107); Glucose 63 mg/dL (74-99); Non-African American GFR(CKD) 27 (>60 ml/min/1.73 sqM); Potassium 4.1 mmol/L (3.5-5.1); Sodium 136 mmol/L (137-145)
--- NOTE | 2020-05-09 07:42 | XR ---
EXAMINATION TYPE: XR chest 1V portable DATE OF EXAM: 05/09/2020 COMPARISON: 05/07/2020 HISTORY: Shortness of breath TECHNIQUE: Single frontal view of the chest is obtained. FINDINGS: Bilateral areas of infiltrate and pleural effusion are stable. Limited inspiration. Heart is enlarged. No pneumothorax. Arthropathy shoulders. Exostosis involving the proximal left humerus. IMPRESSION: Bilateral patchy areas of infiltrate and pleural effusion stable.
[2020-05-09] MEDS: INSULIN ASPART (NovoLOG) 100 UNIT/ML VIAL SQ SCH ×4 (07:53→19:53)
[2020-05-09 07:56] LABS: Basophils % (A) 0 %; Eosinophils % (A) 0 %; HCT 25.3 % (34.0-46.0); HGB 8.1 gm/dL (11.4-16.0); Hypochromasia Moderate; Lymphocytes # (A) 0.9 k/uL (1.0-4.8); Lymphocytes % (A) 9 %; MCH 32.8 pg (25.0-35.0); MCHC 31.9 g/dL (31.0-37.0); MCV 102.7 fL (80.0-100.0); Macrocytosis Slight; Mean Platelet Volume 10.1; Monocytes # (A) 0.6 k/uL (0-1.0); Monocytes % (A) 6 %; Neutrophils # (A) 7.9 k/uL (1.3-7.7); Neutrophils % (A) 83 %; Platelet Count 255 k/uL (150-450); RBC 2.47 m/uL (3.80-5.40); RDW 15.9 % (11.5-15.5); WBC 9.4 k/uL (3.8-10.6)
[2020-05-09] MEDS: BISOPROLOL 5 MG TAB PO SCH (09:38)
[2020-05-09] MEDS: MULTIVITAMINS, THERA 1 EACH TAB PO SCH (09:45)
[2020-05-09] MEDS: CHOLECALCIFEROL 25 MCG (1000 IU) TABLET PO SCH (09:45)
[2020-05-09] MEDS: MIDODRINE 5 MG TAB PO SCH ×3 (09:45→17:55)
[2020-05-09] MEDS: ZINC SULFATE 220 MG CAP PO SCH (09:45)
[2020-05-09] MEDS: busPIRone HCl 10 MG TAB PO SCH ×2 (09:45→19:53)
[2020-05-09] MEDS: dexAMETHasone 2 MG TAB PO SCH (09:45)
[2020-05-09] MEDS: FUROSEMIDE 10 MG/ML 2 ML VIAL IV SCH (09:46)
[2020-05-09] MEDS: ASCORBIC ACID 500 MG TAB PO SCH (09:46)
[2020-05-09] MEDS: PANTOPRAZOLE 40 MG/10 ML VIAL IVP SCH ×2 (09:46→19:50)
[2020-05-09 10:14] LABS: C Reactive Protein 2.6 mg/dL (0.0-0.8)
--- NOTE | 2020-05-09 11:09 | PN ---
PROGRESS NOTE DATE OF SERVICE: 05/09/2020 Patient is an 85-year-old pleasant white female admitted to the hospital with acute GI bleed and COVID-19 pneumonia. She is presently on 8-15 L of high-flow nasal cannula. As per the nursing staff, the patient has been having one episode of black tarry stool every day, which has been loose in consistency. She did drop her hemoglobin to 8.1 g/dL today. She denies any abdominal pain. No nausea, no vomiting. PHYSICAL EXAMINATION: GENERAL: She is quite sleepy. VITAL SIGNS: Stable. Blood pressure 102/77, pulse rate 51, temperature 97.6. HEENT: Examination unremarkable. Conjunctivae are pink. Sclerae anicteric. Oral cavity no lesions. NECK: No JVD or lymph node enlargement. CHEST: Clear to auscultation. HEART: Regular rate and rhythm. ABDOMEN: Soft. Bowel sounds are positive. No organomegaly. EXTREMITIES: No pedal edema. NEURO: She is quite sleepy but she is alert and oriented. LABS: From today WBC 9.4, hemoglobin 8.1, platelets normal. Basic metabolic panel showed a BUN of 63 and creatinine 1.69. IMPRESSION: 1. Acute gastrointestinal bleed with black tarry stools almost on a daily basis. She has gradually dropped hemoglobin from 10.1-8.1 g/dL. She has been having an episode of black tarry stools almost on a daily basis. Hemodynamically stable. On Protonix 40 mg daily. 2. COVID-19 pneumonia on high-flow oxygen. Continues to remain stable. 3. History of coronary artery disease. 4. Chronic kidney disease, stage 2. 5. History of hypertension and hypothyroidism. RECOMMENDATIONS: 1. Continue with Protonix 40 mg daily. 2. Monitor CBC daily and transfuse if the hemoglobin is less than 7. 3. Continue management for COVID-19 pneumonia. 4. We will consider an EGD once she gets the clearance from Pulmonary physician. 5. In the meantime, we will continue with conservative approach. We will follow her closely. Thank you for this consultation. MMBALDOMERO / MARJ: [id number] /
--- NOTE | 2020-05-09 11:20 | P.PN ---
Subjective Progress Note Date: 05/09/20 85-year-old female patient, quite debilitated referred to us from [facility] on the [place] where she was rehabilitating following a left ankle fracture. She was initially treated for her fracture at [facility] and [place]. The patient was also diagnosed having positive Covid 19 on 04/18/2020. At that time the patient was treated with oxygen, Decadron, and no reported history of administration monoclonal antibodies or Remdesivir. She is known to have multiple other medical problems and diabetes mellitus type 2, hypertension, hyperlipidemia, chronic atrial fibrillation, hypothyroidism and macular degeneration. She has osteoporosis, severe kyphoscoliosis of the spine, severe central canal stenosis at level of L4 addition to compression fracture multiple levels in her T-spine. In addition, the patient presented to the emergency department this time because of black tarry stool. She is not taking any follow anticoagulants. I'm not sure if she was given anticoagulation at time of her Covid 19 infection. In any rate, the patient has normal coagulation profile. No previous history of peptic ulcer disease. No hematemesis. Presentation was consistent with upper GI bleeding. She did have another large black tarry stool on the morning of 05/07/2019. Currently the patient on oxygen at 15 L per minute nasal cannula. No reported aspiration. Chest x-ray is consistent with patchy bilateral pulmonary interstitial infiltrates and this is typical of an underlying Covid 19 related pneumonia. Despite this high adequate oxygen requirements, the patient is hemodynamically stable and she is not having any major respiratory distress and her white cell count of 10.4 and the most recent hemoglobin is at 8.4 which dropped down from 10.1. D-dimer is at 4.21. Creatinine is at 59 with a creatinine 0.8. LDL still elevated at 1425, CRP is elevated at 49.7, LFTs are showing some mild elevation of alkaline phosphatase at 232, AST and ALP are within normal limits with a normal bilirubin. On today's evaluation the patient's condition is stable. She is being seen in follow-up on 05/08/2020. She is having one bloody bowel movement every day which is melanotic which is small and hemoglobin has remained stable. We have decided to monitor this patient conservatively. Her oxygen level is still the same at 15 L per minute nasal cannula and the pulse ox currently is at 85-90%. Her blood sugar is slightly elevated due to Decadron and her serum blood sugar is up to 218. She is taking is on 6 mg by mouth daily. At the same time she is taking clear liquid/full liquid diet. In terms of blood sugar control, she is on insulin based on a sliding scale coverage. No plans for EGD or colonoscopy at this point in time. Hemoglobin stable at 8.8. No major hemodynamic changes. The patient is seen today 05/09/2020 in follow-up on the regular medical floor. She is currently sitting up in bed. Wake, alert in no acute distress. She is maintaining O2 saturations in the 90s on 8 L high flow nasal cannula. Chest x- ray shows bilateral patchy areas of infiltrates and stable pleural effusions. She does have severe kyphoscoliosis. Has been having black tarry stools. Remains on Protonix. White count 9.4. Hemoglobin 8.1. Sodium 136. Potassium 4.1. Bicarb 15. Creatinine 1.61. LDH 348. C-reactive protein 2.6. Trending down. Pro-calcitonin 0.05. Objective - Vital Signs Vital signs: Vital Signs Temp 97.6 F 05/09/20 06:22 Pulse 51 L 05/09/20 06:22 Resp 16 05/09/20 06:22 BP 102/47 05/09/20 06:22 Pulse Ox 93 L 05/09/20 06:22 Intake & Output 05/08/20 05/09/20 05/09/20 18:59 06:59 18:59 Intake Total 240 200 Output Total 300 200 Balance -60 -200 200 Intake: Oral 240 200 Output: Urine 300 200 Other: Voiding Method Indwelling Catheter # Bowel Movements 1 1 - Exam Gen. appearance A pleasant 85-year-old female patient, calm comfortable, the patient has severe kyphoscoliosis of the spine and is obvious on inspection. No signs of respiratory distress, currently on 8 L by nasal cannula. Head exam was generally normal. There was no scleral icterus or corneal arcus. Mucous membranes were moist. Neck was supple and without jugular venous distension, thyromegaly, or carotid bruits. Carotids were easily palpable bilaterally. There was no adenopathy. Lungs sounds bilateral scattered rhonchi, and crackles in lung bases bilaterally. Severe kyphoscoliosis. Cardiac exam revealed the PMI to be normally situated and sized. The rhythm was regular and no extrasystoles were noted during several minutes of auscultation. The first and second heart sounds were normal and physiologic splitting of the second heart sound was noted. There were no murmurs, rubs, clicks, or gallops. Abdominal exam revealed normal bowel sounds. The abdomen was soft, non-tender, and without masses, organomegaly, or appreciable enlargement of the abdominal aorta. Examination of the extremities revealed easily palpable radial, femoral and pedal pulses. There was no cyanosis, clubbing or edema. The patient has a left ankle immobilizer cast Neurologic exam, the patient is confused and oriented 1 to 2X most and the patient has generalized motor weakness in all 4 extremities. Neurologic exam is nonfocal. Examination of the skin revealed no evidence of significant rashes, suspicious appearing nevi or other concerning lesions. - Labs CBC & Chem 7: 05/09/20 06:12 05/09/20 06:12 Labs: Abnormal Lab Results - Last 24 Hours (Table) 05/08/20 05/08/20 05/08/20 Range/Units 12:02 17:15 21:15 RBC (3.80-5.40) m/uL Hgb (11.4-16.0) gm/dL Hct (34.0-46.0) % MCV (80.0-100.0) fL RDW (11.5-15.5) % Neutrophils # (1.3-7.7) k/uL Lymphocytes # (1.0-4.8) k/uL Sodium (137-145) mmol/L Chloride (98-107) mmol/L Carbon Dioxide (22-30) mmol/L BUN (7-17) mg/dL Creatinine (0.52-1.04) mg/dL Glucose (74-99) mg/dL POC Glucose (mg/dL) 292 H 321 H 188 H (75-99) mg/dL Calcium (8.4-10.2) mg/dL Lactate Dehydrogenase (120-246) U/L C-Reactive Protein (0.0-0.8) mg/dL 05/09/20 05/09/20 05/09/20 Range/Units 06:12 06:12 06:12 RBC 2.47 L (3.80-5.40) m/uL Hgb 8.1 L (11.4-16.0) gm/dL Hct 25.3 L (34.0-46.0) % MCV 102.7 H (80.0-100.0) fL RDW 15.9 H (11.5-15.5) % Neutrophils # 7.9 H (1.3-7.7) k/uL Lymphocytes # 0.9 L (1.0-4.8) k/uL Sodium 136 L (137-145) mmol/L Chloride 110 H (98-107) mmol/L Carbon Dioxide 19 L (22-30) mmol/L BUN 63 H (7-17) mg/dL Creatinine 1.69 H (0.52-1.04) mg/dL Glucose 63 L (74-99) mg/dL POC Glucose (mg/dL) (75-99) mg/dL Calcium 8.1 L (8.4-10.2) mg/dL Lactate Dehydrogenase 348 H (120-246) U/L C-Reactive Protein 2.6 H (0.0-0.8) mg/dL 05/09/20 Range/Units 07:10 RBC (3.80-5.40) m/uL Hgb (11.4-16.0) gm/dL Hct (34.0-46.0) % MCV (80.0-100.0) fL RDW (11.5-15.5) % Neutrophils # (1.3-7.7) k/uL Lymphocytes # (1.0-4.8) k/uL Sodium (137-145) mmol/L Chloride (98-107) mmol/L Carbon Dioxide (22-30) mmol/L BUN (7-17) mg/dL Creatinine (0.52-1.04) mg/dL Glucose (74-99) mg/dL POC Glucose (mg/dL) 74 L (75-99) mg/dL Calcium (8.4-10.2) mg/dL Lactate Dehydrogenase (120-246) U/L C-Reactive Protein (0.0-0.8) mg/dL Assessment and Plan Assessment: 1 Covid 19 related pneumonia diagnosed approximately 2 weeks ago and the patient does have residual pulmonary infiltrates and residual hypoxemia and currently is on 15 L of oxygen by nasal cannula. I am a bit concerned about the worsening oxygenation. This could be related to progression of her underlying Covid 19 related pneumonia. I do not have any signs of superinfection with bacteria this point in time. No signs of any decub's at heart failure. No signs of any aspiration. The patient is a 15 L of Bactrim by nasal cannula. She remains on Decadron. Inflammatory markers trending down 2 upper GI bleed as the patient was having melanotic stool and the patient's hemoglobin had dropped from a baseline of 13.5 from 04/18/2020. No transfusions are being given for now and the patient is being monitored clinically. No plans to do any EGD at this point in time based on age and comorbidities. The patient is still having some residual melanotic stools, no active bleeding and hemoglobin stable at 8.1. 3 hypertension 4 history of coronary artery disease with previous non-STEMI and the patient has a preserved LV function with moderate enlargement of the RA, and secondary pulmonary hypertension with a PA pressure of around 55 5 chronic stage II kidney disease 6 hypothyroidism 7 chronic thoracic kyphosis addition to T-spine compression fracture multiple levels in addition to lumbar spine compression fractures 8 history of lumbar spine stenosis at the level of L4 9 history of left ankle fracture and the patient is currently wearing a immobilizing cast 10 dementia 11 iron deficiency anemia 12 paroxysmal atrial fibrillation/flutter, no anticoagulants for now and the patient was on aspirin which is currently on hold Plan The patient was seen and evaluated by Dr. Longoria Oxygen requirements improving, currently on 8 L high flow nasal cannula Chest x-ray continues to show bilateral opacities and effusion Hemoglobin stable at 8.1, continue Protonix Inflammatory markers trending down Continue the current treatment plan We'll continue to follow I, the cosigning physician, performed a history & physical examination of the patient. Lungs sounds with bilateral scattered rhonchi, crackles in the posterior bases, diminished. Maintaining good O2 saturations in the 90s on 8 L high flow nasal cannula. I discussed the assessment and plan of care with my nurse practitioner, Jess Nagy. I attest to the above note as dictated by her.
[2020-05-09 11:51] LABS: Glucose,Whole Blood 224 mg/dL (75-99)
[2020-05-09] MEDS: ALBUMIN HUMAN 25% 50 ML in EMPTY BAG 1 BAG IVPB SCH ×5 (13:50→21:23)
--- NOTE | 2020-05-09 15:08 | P.PN ---
Subjective Progress Note Date: 05/09/20 HISTORY OF PRESENT ILLNESS This is a pleasant 85-year-old female with unknown PCP, [facility] [place], for subacute rehabilitation. She sustained a fracture on t he left ankle, for which Was provided at [facility],, she also was diagnosed to have cough. On 04/18/2020, for which family members are in critical condition, apparently the son was in ICU at that time of her hospitalization. She required O2 at nighttime, for which because of cold, now she required O2 [id number]. She was given dexamethasone, and no antibiotic was given at that time, and no monoclonal antibodies is given at the time, remdesivir not required . patient has underlying diabetes mellitus type 2, hypertension, hyperlipidemia, atrial fibrillation, hypothyroidism, macular degeneration, hepatitis 50 years ago, osteoporosis, right broken wrist, severe central canal stenosis L4, compression fractures T 11 2 L4, She presents to emergency room with blood as it was black and burgundy in the stool, as well as mental status changes, for which the original recommendation comes from myself at [facility]. Patient has diarrhea. Weaker than usual and has diminished appetite. No respiratory distress when evaluated 05/06: Patient had one black tarry stool today. C. difficile toxin was not tested as he levi She is known to have bilateral lower extremity edema specially left ankle edema for which ultrasound ordered to rule out DVT. Telemetry will be discontinued. H. pylori is pending. Patient has been afebrile, heart rate 65, blood pressure 108/58, pulse ox 98% on 4L nc. 05/07: The patient did have a very large black tarry stool this morning. She denies having any abdominal pain. She remains pleasantly confused. She is on 15 L high flow nasal cannula and nonrebreather which was started yesterday. She had some decreased urine output as well. Blood pressure is marginal. Lisinopril will be discontinued. IV fluids at 75 mL per hour. Stool to be checked for C. difficile colitis. SUSANA michelle added. Heparin subcu discontinued. Consult added for Dr. Redman regarding hypoxia and Covid 19. Chest x-ray ordered. 05/08:, Patient does not complain of anything significant, however she is requiring 15 L of nasal cannula O2, pulse ox at 84-90%, she is on dexamethasone, hemoglobin is stable at 8.8, no plans for EGD or colonoscopy at this time from GI, secondary to hypoxemic respiratory failure. Blood sugars higher, on Decadron 6 mg daily, Lantus or edema initiated at 10 units, for iron studies, Covid markers trending downward slightly, check for CK, a bile for rhabdo, monitor for nutrition check A1c 05/09, patient has diminished appetite, she wishes not back down to sleep, inquired on nutrition, patient is not eating as much, she still is hypoxemic, O2 at high flow, 8 L, 93-100%, additional Lasix was given, however patient has diminished urine flow, and is also now hypotensive. We have increase IV fluids to 100 mL an hour, albumin infusion, 25 g 4 doses every 6 hours, with a drain started at 10 mg 3 times a day, Lasix 40 mg IV daily, patient has anasarca. Discontinue bisoprolol secondary to bradycardia discontinue allopurinol discontinue Namenda for now to limit pill burden hemoglobin at 8.1, no current plans for blood transfusion, creatinine was now at 1.6 from a previous0. 8 for Mcmullen catheter is placed for I's and O's, REVIEW OF SYSTEMS Constitutional: No fever, no chills, no night sweats. No weight change. Positive weakness, fatigue or lethargy. No daytime sleepiness. EENT: No headache. No blurred vision or double vision, no loss of vision. No loss of Hearing, no ringing in the ears, no dizziness. No nasal drainage or congestion. No epistaxis. No sore throat. Lungs: Reports shortness of breath, cough, no sputum production. No wheezing. Cardiovascular: No chest pain, noted lower extremity edema. No palpitations. No paroxysmal nocturnal dyspnea. No orthopnea. No lightheadedness or dizziness. No syncopal episodes. Abdominal: No abdominal pain. No nausea, vomiting. Reports diarrhea. No constipation. Reported tarry stools.. No loss of appetite. Genitourinary: No dysuria, increased frequency, urgency. No urinary retention. Musculoskeletal: No myalgias. Positive muscle weakness, no gait dysfunction, no frequent falls. No back pain. No neck pain. Integumentary: No wounds, no lesions. No rash or pruritus. No unusual bruising. No change in hair or nails. Neurologic: No aphasia. No facial droop. No change in mentation. No head injury. No headache. No paralysis. No paresthesia. Psychiatric: No depression. No anxiety. No mood swings. Endocrine: No abnormal blood sugars. No weight change. Objective - Vital Signs Vital signs: Vital Signs Temp 98.9 F 05/09/20 10:00 Pulse 65 05/09/20 10:00 Resp 22 05/09/20 10:00 BP 124/73 05/09/20 10:00 Pulse Ox 100 05/09/20 10:00 Intake & Output 05/08/20 05/09/20 05/09/20 18:59 06:59 18:59 Intake Total 240 200 Output Total 300 200 Balance -60 -200 200 Intake: Oral 240 200 Output: Urine 300 200 Other: Voiding Method Indwelling Catheter Indwelling Catheter # Bowel Movements 1 1 - Constitutional General appearance: Present: cooperative - EENT Eyes: Present: EOMI ENT: Present: NA/AT - Respiratory Respiratory: bilateral: CTA, diminished, negative: prolonged expiration, prolonged inspiration - Cardiovascular Rhythm: regular Heart sounds: normal: S1, S2 - Gastrointestinal General gastrointestinal: Present: normal bowel sounds, soft - Integumentary Integumentary: Present: decreased turgor, normal - Neurologic Neurologic: Present: CNII-XII intact - Psychiatric Psychiatric: Present: A&O x's 3 (axo2) - Allied health notes Allied health notes reviewed: nursing - Labs CBC & Chem 7: 05/09/20 06:12 05/09/20 06:12 Labs: Abnormal Lab Results - Last 24 Hours (Table) 05/08/20 05/08/20 05/09/20 Range/Units 17:15 21:15 06:12 RBC (3.80-5.40) m/uL Hgb (11.4-16.0) gm/dL Hct (34.0-46.0) % MCV (80.0-100.0) fL RDW (11.5-15.5) % Neutrophils # (1.3-7.7) k/uL Lymphocytes # (1.0-4.8) k/uL Sodium (137-145) mmol/L Chloride (98-107) mmol/L Carbon Dioxide (22-30) mmol/L BUN (7-17) mg/dL Creatinine (0.52-1.04) mg/dL Glucose (74-99) mg/dL POC Glucose (mg/dL) 321 H 188 H (75-99) mg/dL Calcium (8.4-10.2) mg/dL Lactate Dehydrogenase 348 H (120-246) U/L C-Reactive Protein 2.6 H (0.0-0.8) mg/dL 05/09/20 05/09/20 05/09/20 Range/Units 06:12 06:12 07:10 RBC 2.47 L (3.80-5.40) m/uL Hgb 8.1 L (11.4-16.0) gm/dL Hct 25.3 L (34.0-46.0) % MCV 102.7 H (80.0-100.0) fL RDW 15.9 H (11.5-15.5) % Neutrophils # 7.9 H (1.3-7.7) k/uL Lymphocytes # 0.9 L (1.0-4.8) k/uL Sodium 136 L (137-145) mmol/L Chloride 110 H (98-107) mmol/L Carbon Dioxide 19 L (22-30) mmol/L BUN 63 H (7-17) mg/dL Creatinine 1.69 H (0.52-1.04) mg/dL Glucose 63 L (74-99) mg/dL POC Glucose (mg/dL) 74 L (75-99) mg/dL Calcium 8.1 L (8.4-10.2) mg/dL Lactate Dehydrogenase (120-246) U/L C-Reactive Protein (0.0-0.8) mg/dL 05/09/20 Range/Units 11:46 RBC (3.80-5.40) m/uL Hgb (11.4-16.0) gm/dL Hct (34.0-46.0) % MCV (80.0-100.0) fL RDW (11.5-15.5) % Neutrophils # (1.3-7.7) k/uL Lymphocytes # (1.0-4.8) k/uL Sodium (137-145) mmol/L Chloride (98-107) mmol/L Carbon Dioxide (22-30) mmol/L BUN (7-17) mg/dL Creatinine (0.52-1.04) mg/dL Glucose (74-99) mg/dL POC Glucose (mg/dL) 224 H (75-99) mg/dL Calcium (8.4-10.2) mg/dL Lactate Dehydrogenase (120-246) U/L C-Reactive Protein (0.0-0.8) mg/dL Assessment and Plan Plan: SSESSMENT AND PLAN 1. Acute black tarry stool, with weakness and increasing confusion and metabo lic encephalopathy secondary to acute GI bleed, presenting hemoglobin of 9.0, previous hemoglobin of 13.5 on 04/18/2020, consult with gastroenterology, check iron studies, hold aspirin, will need transfusion if below 7, check for iron studies. GI consult appreciated. Iron studies ordered. No endoscopy at this time. Continue Protonix 40 mg IV push twice daily. 2 History of paroxysmal atrial fibrillation, not on anticoagulation prior to admission except for aspirin 81 mg daily for which it is held secondary to lack started stool, 3 Hypertension, lisinopril discontinued. Continue bisoprolol 2.5 mg daily held secondary to bradycardia .furosemide was discontinued prior to her admission to [facility] due to dehydration from Covid. We are going to restart Lasix 20 mg daily for the next 3 days, starting May 09 4. Moderate severe protein calorie malnutrition, with hypotension, albumin infusion 4 doses at 25 g each 6 hours, ensure supplementation once able, supervised feedings if needed, 5 Echocardiogram reviewed, 04/20/2020, secondary to non-STEMI, type II [place], mild LVH, severe hypokinesia of right ventricle, normal EF, moderate enlargement right atrium, thickened mitral valve, I right ventricle systolic pressure 55, consistent with pulmonary hypertension, ejection fraction 65% moderate TR 6. Acute hypoxic respiratory failure secondary to Covid infection diagnosed 04/18/2020 given dexamethasone, did not require remdesivir, or monoclonal anti- body infusion currently on O2 supplementation, stable without any respiratory distress however has significant hypoxemia. Chest x-ray. Inflammatory markers are trending downwards, consult with pulmo medicine. 7 Acute covid-19 infection diagnosed 04/18 given dexamethasone, did not required them visibly during the last admission, nor did she receive any monoclonal antibody infusion Ferritin markers are trending down CRP is still elevated. D- dimer elevated. 8 Hyperglycemia related with dexamethasone, check for A1c, started on Lantus 10 units daily insulin coverage patient has some nocturnal hypo-glycemia and quilt stuffer hypoglycemia with this, change Lantus to NPH, for breakfast coverage only, patient is on dexamethasone 6 mg every morning, NPH 8 units every morning 9CKD stage II with recent CARMINA secondary to dehydration, Covid 10 Hypothyroidism, on levothyroxine 150 g daily 11 generalized anxiety disorder, on BuSpar 10 mg 3 times a day 12 Previous tobacco use, quit in 1975 10 Discharge planning, most likely return to subacute rehab, [facility] 11 History of diabetes mellitus type 2, Accu-Cheks before meals and at bedtime, patient on glipizide 10 mg daily, on hold secondary to decreased appetite, check for blood sugars and sliding scale prior to admission check A1c possible diet controlled 12 Macular degeneration 13 History of severe spinal stenosis L4, 14 Acute left ankle fracture, need to be clarified for weightbearing status left ankle, 15 Dementia, on Aricept 5 mg daily 16 iron deficiency anemia on iron tablets 17 Insomnia and depression, on trazodone 25 mg at bedtime DVT prophylaxis SUSANA michelle, patient had fractured left ankle, at risk for blood clots in the leg, aspirin is held, we'll going to give low dose heparin 5000 units every 12 hours GI prophylaxis 5 Hyperlipidemia, on atorvastatin 40 mg daily check CK to evaluate for rhabdo, might need to discontinue Prognosis guarded
[2020-05-09 17:39] LABS: Glucose,Whole Blood 189 mg/dL (75-99)
[2020-05-09 19:33] LABS: Glucose,Whole Blood 242 mg/dL (75-99)
[2020-05-09] MEDS: traZODone HCL 50 MG TAB PO SCH (19:53)
[2020-05-09] MEDS: LEVOTHYROXINE 75 MCG TAB PO SCH (19:53)
[2020-05-10] MEDS: ALBUMIN HUMAN 25% 50 ML in EMPTY BAG 1 BAG IVPB SCH ×4 (02:24→10:01)
[2020-05-10] MEDS: SODIUM CHLORIDE 0.9% 1,000 ML IV SCH ×2 (02:27→10:02)
[2020-05-10] MEDS: ACETAMINOPHEN TAB 325 MG TAB PO PRN (06:13)
[2020-05-10 07:10] LABS: Glucose,Whole Blood 282 mg/dL (75-99)
[2020-05-10] MEDS ORDERED: INSULIN NPH 300 UNIT/3 ML VIAL SQ SCH (07:30)
[2020-05-10] MEDS: PANTOPRAZOLE 40 MG/10 ML VIAL IVP SCH ×2 (07:39→20:57)
[2020-05-10] MEDS: INSULIN ASPART (NovoLOG) 100 UNIT/ML VIAL SQ SCH ×4 (07:42→20:56)
[2020-05-10] MEDS: ZINC SULFATE 220 MG CAP PO SCH (07:46)
[2020-05-10] MEDS: dexAMETHasone 2 MG TAB PO SCH (07:46)
[2020-05-10] MEDS: MIDODRINE 5 MG TAB PO SCH ×3 (07:47→16:25)
[2020-05-10] MEDS: MULTIVITAMINS, THERA 1 EACH TAB PO SCH (07:47)
[2020-05-10] MEDS: ASCORBIC ACID 500 MG TAB PO SCH (07:47)
[2020-05-10] MEDS: CHOLECALCIFEROL 25 MCG (1000 IU) TABLET PO SCH (07:47)
[2020-05-10] MEDS: busPIRone HCl 10 MG TAB PO SCH ×2 (07:47→20:57)
[2020-05-10] MEDS: FUROSEMIDE 10 MG/ML 2 ML VIAL IV SCH ×2 (07:47→20:56)
[2020-05-10 11:41] LABS: Glucose,Whole Blood 367 mg/dL (75-99)
--- NOTE | 2020-05-10 14:32 | P.PN ---
Subjective Progress Note Date: 05/10/20 Principal diagnosis: COVID 19 pneumonia 85-year-old female patient, quite debilitated referred to us from [facility] on the [place] where she was rehabilitating following a left ankle fracture. She was initially treated for her fracture at [facility] and [place]. The patient was also diagnosed having positive Covid 19 on 04/18/2020. At that time the patient was treated with oxygen, Decadron, and no reported history of administration monoclonal antibodies or Remdesivir. She is known to have multiple other medical problems and diabetes mellitus type 2, hypertension, hyperlipidemia, chronic atrial fibrillation, hypothyroidism and macular degeneration. She has osteoporosis, severe kyphoscoliosis of the spine, severe central canal stenosis at level of L4 addition to compression fracture multiple levels in her T-spine. In addition, the patient presented to the emergency department this time because of black tarry stool. She is not taking any follow anticoagulants. I'm not sure if she was given anticoagulation at time of her Covid 19 infection. In any rate, the patient has normal coagulation profile. No previous history of peptic ulcer disease. No hematemesis. Presentation was consistent with upper GI bleeding. She did have another large black tarry stool on the morning of 05/07/2019. Currently the patient on oxygen at 15 L per minute nasal cannula. No reported aspiration. Chest x-ray is consistent with patchy bilateral pulmonary interstitial infiltrates and this is typical of an underlying Covid 19 related pneumonia. Despite this high adequate oxygen requirements, the patient is hemodynamically stable and she is not having any major respiratory distress and her white cell count of 10.4 and the most recent hemoglobin is at 8.4 which dropped down from 10.1. D-dimer is at 4.21. Creatinine is at 59 with a creatinine 0.8. LDL still elevated at 1425, CRP is elevated at 49.7, LFTs are showing some mild elevation of alkaline phosphatase at 232, AST and ALP are within normal limits with a normal bilirubin. On today's evaluation the patient's condition is stable. She is being seen in follow-up on 05/08/2020. She is having one bloody bowel movement every day which is melanotic which is small and hemoglobin has remained stable. We have decided to monitor this patient conservatively. Her oxygen level is still the same at 15 L per minute nasal cannula and the pulse ox currently is at 85-90%. Her blood sugar is slightly elevated due to Decadron and her serum blood sugar is up to 218. She is taking is on 6 mg by mouth daily. At the same time she is taking clear liquid/full liquid diet. In terms of blood sugar control, she is on insulin based on a sliding scale coverage. No plans for EGD or colonoscopy at this point in time. Hemoglobin stable at 8.8. No major hemodynamic changes. The patient is seen today 05/09/2020 in follow-up on the regular medical floor. She is currently sitting up in bed. Wake, alert in no acute distress. She is maintaining O2 saturations in the 90s on 8 L high flow nasal cannula. Chest x- ray shows bilateral patchy areas of infiltrates and stable pleural effusions. She does have severe kyphoscoliosis. Has been having black tarry stools. Remains on Protonix. White count 9.4. Hemoglobin 8.1. Sodium 136. Potassium 4.1. Bicarb 15. Creatinine 1.61. LDH 348. C-reactive protein 2.6. Trending down. Pro-calcitonin 0.05. On 05/10/2020 patient seen in follow-up on medical floor, she is resting quietly in bed, there is to be in no acute distress, she is currently on 6 L of oxygen her pulse ox is ranging between 90-200%, no fever, hemodynamically she stable, a ppears to be breathing comfortably, patient is a very poor historian,she has severe kyphoscoliosis, she is able to answer simple questions, denies any acute distress, lasr chest x-ray yesterday showed bilateral patchy areas of infiltrate and pleural effusion. Her inflammatory markers have improved since admission, her pro-calcitonin level was negative at 0.05, she is not on any prophylactic anticoagulation in view of recent history of dark-colored stools, patient has had no active bleeding. Yesterday's labs revealed hemoglobin of 8.1, platelet count of 255, last d-dimer was on 05/07/2020 and was at 4.21. No lower extremity swelling, no worsening dyspnea. Objective - Vital Signs Vital signs: Vital Signs Temp 97.6 F 05/10/20 07:35 Pulse 67 05/10/20 07:35 Resp 18 05/10/20 07:35 BP 141/63 05/10/20 07:35 Pulse Ox 92 L 05/10/20 07:35 Intake & Output 05/09/20 05/10/20 05/10/20 18:59 06:59 18:59 Intake Total 200 Output Total 250 425 Balance -50 -425 Weight 81.647 kg Intake: Oral 200 Output: Urine 250 425 Other: Voiding Method Indwelling Catheter Indwelling Catheter - Exam GENERAL EXAM: Alert, very pleasant, 85-year-old white female, currently on 6 L of oxygen and pulse ox between 90-100%, resting comfortably in bed, patient has severe kyphoscoliosis of the spine, comfortable in no apparent distress. HEAD: Normocephalic/atraumatic. EYES: Normal reaction of pupils, equal size. Conjunctiva pink, sclera white. NOSE: Clear with pink turbinates. THROAT: No erythema or exudates. NECK: No masses, no JVD, no thyroid enlargement, no adenopathy. CHEST: No chest wall deformity. Symmetrical expansion. LUNGS: Equal air entry with no crackles, wheeze, rhonchi or dullness. CVS: Regular rate and rhythm, normal S1 and S2, no gallops, no murmurs, no rubs ABDOMEN: Soft, nontender. No hepatosplenomegaly, normal bowel sounds, no guarding or rigidity. EXTREMITIES: No clubbing, no edema, no cyanosis, 2+ pulses and upper and lower extremities. MUSCULOSKELETAL: Muscle strength and tone normal. SPINE: Severe kyphoscoliosis of the spine noted SKIN: No rashes CENTRAL NERVOUS SYSTEM: Alert and oriented -2. No focal deficits, tone is normal in all 4 extremities. PSYCHIATRIC: Alert and oriented -2. Appropriate affect. Intact judgment and insight. - Labs CBC & Chem 7: 05/09/20 06:12 05/09/20 06:12 Labs: Abnormal Lab Results - Last 24 Hours (Table) 05/09/20 05/09/20 05/09/20 Range/Units 06:12 17:29 19:32 POC Glucose (mg/dL) 189 H 242 H (75-99) mg/dL Hemoglobin A1c 7.0 H (4.0-6.0) % 05/10/20 05/10/20 Range/Units 07:06 11:40 POC Glucose (mg/dL) 282 H 367 H (75-99) mg/dL Hemoglobin A1c (4.0-6.0) % Assessment and Plan Plan: Assessment: 1 Covid 19 related pneumonia diagnosed approximately 2 weeks ago and the patient does have residual pulmonary infiltrates and residual hypoxemia and currently is on 15 L of oxygen by nasal cannula. I am a bit concerned about the worsening oxygenation. This could be related to progression of her underlying Covid 19 related pneumonia. I do not have any signs of superinfection with bacteria this point in time. No signs of any decub's at heart failure. No signs of any aspiration. The patient is a 15 L of Bactrim by nasal cannula. She remains on Decadron. Inflammatory markers trending down 2 upper GI bleed as the patient was having melanotic stool and the patient's hemoglobin had dropped from a baseline of 13.5 from 04/18/2020. No transfusions are being given for now and the patient is being monitored clinically. No plans to do any EGD at this point in time based on age and comorbidities. The patient is still having some residual melanotic stools, no active bleeding and hemoglobin stable at 8.1. 3 hypertension 4 history of coronary artery disease with previous non-STEMI and the patient has a preserved LV function with moderate enlargement of the RA, and secondary pulmonary hypertension with a PA pressure of around 55 5 chronic stage II kidney disease 6 hypothyroidism 7 chronic thoracic kyphosis addition to T-spine compression fracture multiple levels in addition to lumbar spine compression fractures 8 history of lumbar spine stenosis at the level of L4 9 history of left ankle fracture and the patient is currently wearing a immobilizing cast 10 dementia 11 iron deficiency anemia 12 paroxysmal atrial fibrillation/flutter, no anticoagulants for now and the patient was on aspirin which is currently on hold Plan: Continue current medical treatment, continue weaning FiO2, all anticoagulation remains on hold for a recent history of GI bleeding, there has been no re currence of GI bleeding, vital signs are stable, continue same dose dexamethasone, we will increase IV Lasix to 20 mg every 12 hours, daily labs, including left renal profile, maintain aspiration precautions, follow up chest x-ray tomorrow I performed a history & physical examination of the patient and discussed their management with my nurse practitioner, Ryann Hernandez. I reviewed the nurse pr actitioner's note and agree with the documented findings and plan of care. Lung sounds are positive for diminished breath sounds. The findings and the impression was discussed with the patient. I attest to the documentation by the nurse practitioner. Time with Patient: Less than 30
[2020-05-10] MEDS: COLCHICINE 0.6 MG EACH PO SCH ×2 (14:51→20:57)
[2020-05-10 15:04] LABS: Basophils % (A) 0.1 %; Eosinophils % (A) 0.2 %; HCT 23.7 % (37.2-46.3); HGB 7.4 g/dL (12.0-15.0); Lymphocytes # (A) 0.77 X 10*3/uL (0.90-5.00); Lymphocytes % (A) 7.9 %; MCH 32.6 pg (27.0-32.0); MCHC 31.2 g/dL (32.0-37.0); MCV 104.4 fL (80.0-97.0); Mean Platelet Volume 12.7 fL (9.5-12.2); Monocytes # (A) 0.61 X 10*3/uL (0.20-1.00); Monocytes % (A) 6.3 %; Neutrophils # (A) 8.26 X 10*3/uL (1.80-7.70); Platelet Count 233 X 10*3/uL (140-440); RBC 2.27 X 10*6/uL (4.10-5.20); RDW 16.8 % (11.5-14.5); WBC 9.72 X 10*3/uL (4.50-10.00)
[2020-05-10 15:05] LABS: Basophils # (A) 0.01 X 10*3/uL (0.00-0.10); Eosinophils # (A) 0.02 X 10*3/uL (0.04-0.35)
--- NOTE | 2020-05-10 15:28 | P.PN ---
Subjective Progress Note Date: 05/10/20 Principal diagnosis: Melena An 85-year-old female who is seen in follow-up evaluation with a recent diagnosis of Covid 19 infection who was brought into the hospital for further e valuation of dark colored stool. The patient was at [facility] where was noted she had dark colored stool and sent in to the hospital for evaluation. The patient remains confused and unreliable during questions. Nursing reports she has a dark stool through the evening. Hemoglobin 7.4. Objective - Vital Signs Vital signs: Vital Signs Temp 97.6 F 05/10/20 14:35 Pulse 55 L 05/10/20 14:35 Resp 22 05/10/20 14:35 BP 110/54 05/10/20 14:35 Pulse Ox 96 05/10/20 14:35 Intake & Output 05/09/20 05/10/20 05/10/20 18:59 06:59 18:59 Intake Total 200 Output Total 250 425 Balance -50 -425 Weight 81.647 kg Intake: Oral 200 Output: Urine 250 425 Other: Voiding Method Indwelling Catheter Indwelling Catheter - Exam General appearance: The patient is alert, oriented, appears in no acute distress. HET: Head is normocephalic and atraumatic. Conjunctiva pink. Sclera anicteric. Neck: Supple without lymphadenopathy. Abdomen: Soft, obese, nontender, nondistended with bowel sounds. No guarding or rigidity. Extremities: Normal skin color and turgor. No pedal edema Skin: No rashes, no jaundice Neurological: No focal deficits. Alert and oriented x1 - Labs CBC & Chem 7: 05/10/20 08:25 05/09/20 06:12 Labs: Abnormal Lab Results - Last 24 Hours (Table) 05/09/20 05/09/20 05/09/20 Range/Units 06:12 17:29 19:32 RBC (4.10-5.20) X 10*6/uL Hgb (12.0-15.0) g/dL Hct (37.2-46.3) % MCV (80.0-97.0) fL MCH (27.0-32.0) pg MCHC (32.0-37.0) g/dL RDW (11.5-14.5) % MPV (9.5-12.2) fL Immature Gran # (0.00-0.04) X 10*3/uL Neutrophils # (1.80-7.70) X 10*3/uL Lymphocytes # (0.90-5.00) X 10*3/uL Eosinophils # (0.04-0.35) X 10*3/uL POC Glucose (mg/dL) 189 H 242 H (75-99) mg/dL Hemoglobin A1c 7.0 H (4.0-6.0) % 05/10/20 05/10/20 05/10/20 Range/Units 07:06 08:25 11:40 RBC 2.27 L (4.10-5.20) X 10*6/uL Hgb 7.4 L (12.0-15.0) g/dL Hct 23.7 L (37.2-46.3) % MCV 104.4 H (80.0-97.0) fL MCH 32.6 H (27.0-32.0) pg MCHC 31.2 L (32.0-37.0) g/dL RDW 16.8 H (11.5-14.5) % MPV 12.7 H (9.5-12.2) fL Immature Gran # 0.05 H (0.00-0.04) X 10*3/uL Neutrophils # 8.26 H (1.80-7.70) X 10*3/uL Lymphocytes # 0.77 L (0.90-5.00) X 10*3/uL Eosinophils # 0.02 L (0.04-0.35) X 10*3/uL POC Glucose (mg/dL) 282 H 367 H (75-99) mg/dL Hemoglobin A1c (4.0-6.0) % Assessment and Plan (1) Melena Narrative/Plan: 85-year-old female with multiple medical comorbidities currently being treated for infection with COVID-19. Patient noted to have dark-colored bowel movements and fall in hemoglobin at 9 on presentation currently 10.1. He denies any history of peptic ulcer disease. She is unsure of prior EGD but does report remote history of colonoscopy. She does not believe she is on any NSAID medication but does take daily iron. Unclear etiology, may be related to gastritis/esophagitis, peptic ulcer disease, AVM, or other etiology. Current Visit: Yes Status: Acute Code(s): K92.1 - MELENA SNOMED Code(s): 6339783 (2) Stool guaiac positive Current Visit: Yes Status: Acute Code(s): R19.5 - OTHER FECAL ABNORMALITIES SNOMED Code(s): 31730294 Plan: Supportive care Diet as tolerated Continue to monitor hemoglobin and hematocrit and transfuse as needed Continue to monitor for signs or symptoms of GI bleeding Continue management per Covid 19 pneumonia We will consider EGD once patient is cleared from pulmonology Thank you for allowing us to participate in the care of the patient Dr. Darrin Arita I agree with the dictator's note, documented as a scribe by Amy Garzon.
[2020-05-10 15:55] LABS: African American GFR (CKD) 36.2 (60.0-200.0); Albumin 3.9 g/dL (3.80-4.90); Albumin/Globulin Ratio 2.29 (1.60-3.17); Anion Gap 10.9 mmol/L (4.00-12.00); Calcium 8.4 mg/dL (8.7-10.3); Carbon Dioxide 18.1 mmol/L (21.6-31.8); Globulin 1.7 g/dL (1.6-3.3); Non-African American GFR(CKD) 31.2 (60.0-200.0); Potassium 4.1 mmol/L (3.5-5.5); Total Bilirubin 0.4 mg/dL (0.2-1.2); Total Protein 5.6 g/dL (6.2-8.2)
[2020-05-10 17:02] LABS: Glucose,Whole Blood 314 mg/dL (75-99)
[2020-05-10 20:41] LABS: Glucose,Whole Blood 308 mg/dL (75-99)
[2020-05-10] MEDS: INSULIN DETEMIR (LEVEMIR) 100 UNIT/ML SYR SQ SCH (20:56)
[2020-05-10] MEDS: traZODone HCL 50 MG TAB PO SCH (20:57)
[2020-05-10] MEDS: LEVOTHYROXINE 75 MCG TAB PO SCH (20:57)
[2020-05-11 06:48] LABS: ALT 32 U/L (4-34); AST 41 U/L (14-36); African American GFR (CKD) 50 (>60 ml/min/1.73 sqM); Albumin/Globulin Ratio 1.2; Alkaline Phosphatase 168 U/L (38-126); Anion Gap 9 mmol/L; Blood Urea Nitrogen 58 mg/dL (7-17); Calcium 8.7 mg/dL (8.4-10.2); Carbon Dioxide 18 mmol/L (22-30); Chloride 110 mmol/L (98-107); Globulin 2.5 g/dL; Glucose 187 mg/dL (74-99); Non-African American GFR(CKD) 43 (>60 ml/min/1.73 sqM); Potassium 4.5 mmol/L (3.5-5.1); Sodium 137 mmol/L (137-145); Total Bilirubin 0.6 mg/dL (0.2-1.3); Total Protein 5.5 g/dL (6.3-8.2)
[2020-05-11 07:40] LABS: Glucose,Whole Blood 169 mg/dL (75-99)
--- NOTE | 2020-05-11 08:28 | P.PN ---
Subjective Progress Note Date: 05/10/20 HISTORY OF PRESENT ILLNESS This is a pleasant 85-year-old female with unknown PCP, [place] [facility] [place], for subacute rehabilitation. She sustained a fracture on t he left ankle, for which Was provided at [facility],, she also was diagnosed to have cough. On 04/18/2020, for which family members are in critical condition, apparently the son was in ICU at that time of her hospitalization. She required O2 at nighttime, for which because of cold, now she required O2 [id number]. She was given dexamethasone, and no antibiotic was given at that time, and no monoclonal antibodies is given at the time, remdesivir not required . patient has underlying diabetes mellitus type 2, hypertension, hyperlipidemia, atrial fibrillation, hypothyroidism, macular degeneration, hepatitis 50 years ago, osteoporosis, right broken wrist, severe central canal stenosis L4, compression fractures T 11 2 L4, She presents to emergency room with blood as it was black and burgundy in the stool, as well as mental status changes, for which the original recommendation comes from myself at [facility]. Patient has diarrhea. Weaker than usual and has diminished appetite. No respiratory distress when evaluated 05/06: Patient had one black tarry stool today. C. difficile toxin was not tested as he levi She is known to have bilateral lower extremity edema specially left ankle edema for which ultrasound ordered to rule out DVT. Telemetry will be discontinued. H. pylori is pending. Patient has been afebrile, heart rate 65, blood pressure 108/58, pulse ox 98% on 4L nc. 05/07: The patient did have a very large black tarry stool this morning. She denies having any abdominal pain. She remains pleasantly confused. She is on 15 L high flow nasal cannula and nonrebreather which was started yesterday. She had some decreased urine output as well. Blood pressure is marginal. Lisinopril will be discontinued. IV fluids at 75 mL per hour. Stool to be checked for C. difficile colitis. SUSANA michelle added. Heparin subcu discontinued. Consult added for Dr. Redman regarding hypoxia and Covid 19. Chest x-ray ordered. 05/08:, Patient does not complain of anything significant, however she is requiring 15 L of nasal cannula O2, pulse ox at 84-90%, she is on dexamethasone, hemoglobin is stable at 8.8, no plans for EGD or colonoscopy at this time from GI, secondary to hypoxemic respiratory failure. Blood sugars higher, on Decadron 6 mg daily, Lantus or edema initiated at 10 units, for iron studies, Covid markers trending downward slightly, check for CK, a bile for rhabdo, monitor for nutrition check A1c 05/09, patient has diminished appetite, she wishes not back down to sleep, inquired on nutrition, patient is not eating as much, she still is hypoxemic, O2 at high flow, 8 L, 93-100%, additional Lasix was given, however patient has diminished urine flow, and is also now hypotensive. We have increase IV fluids to 100 mL an hour, albumin infusion, 25 g 4 doses every 6 hours, with a drain started at 10 mg 3 times a day, Lasix 40 mg IV daily, patient has anasarca. Discontinue bisoprolol secondary to bradycardia discontinue allopurinol discontinue Namenda for now to limit pill burden hemoglobin at 8.1, no current plans for blood transfusion, creatinine was now at 1.6 from a previous0. 8 for Mcmullen catheter is placed for I's and O's, 05/10: Patient is currently on 6 L high flow nasal cannula with pulse ox of 92-100%. She's been afebrile, heart rate 67, blood pressure 141/63. Blood sugars 189-282. She remains pleasantly confused. Blood pressure medications adjusted and midodrine decreased to 5 mg bid. Lasix 20 mg IVP bid. Repeat chest x-ray ordered. Patient had bright red rectal bleeding but did not have any for 2 days prior. Insulin changed to Lantus 5 units bid. REVIEW OF SYSTEMS Constitutional: No fever, no chills, no night sweats. No weight change. Positive weakness, fatigue or lethargy. No daytime sleepiness. EENT: No headache. No blurred vision or double vision, no loss of vision. No nasal drainage or congestion. No epistaxis. No sore throat. Lungs: Reports shortness of breath, cough, no sputum production. No wheezing. Cardiovascular: No chest pain, noted lower extremity edema. No palpitations. No paroxysmal nocturnal dyspnea. No orthopnea. No lightheadedness or dizziness. No syncopal episodes. Abdominal: No abdominal pain. No nausea, vomiting. Reports diarrhea. No constipation. Reported rectal bleeding. No loss of appetite. Genitourinary: No dysuria, increased frequency, urgency. No urinary retention. Musculoskeletal: No myalgias. Positive muscle weakness, no gait dysfunction, no frequent falls. No back pain. No neck pain. Integumentary: No wounds, no lesions. No rash or pruritus. Neurologic: No aphasia. No facial droop. No change in mentation. No head injury. Psychiatric: No depression. No anxiety. Endocrine: Reported abnormal blood sugars. PHYSICAL EXAMINATION Gen: This is as an 85-year-old female. She noted to be pleasantly confused. She is able to answer questions appropriately. Patient appears to be in no acute distress at the time of evaluation. HEENT: Head is atraumatic, normocephalic. Pupils equal, round. Sclerae is anicteric. NECK: Supple. No JVD. No lymphadenopathy. No thyromegaly. LUNGS: Crackles in the bases bilat. No wheezes or rhonchi. No intercostal retractions. HEART: Regular rate and rhythm. No murmur. ABDOMEN: Soft. Bowel sounds are present. No masses. No tenderness. EXTREMITIES: 1+ bilateral pedal edema, worse on the right. No calf tenderness. NEUROLOGICAL: Patient is awake, alert and oriented to person. Generalized weakness. ASSESSMENT AND PLAN 1. Acute black tarry stool, with weakness and increasing confusion and metabolic encephalopathy secondary to acute GI bleed, presenting hemoglobin of 9.0, previous hemoglobin of 13.5 on 04/18/2020, consult with gastroenterology, hold aspirin, will need transfusion if below 7. GI consult appreciated. No endoscopy at this time. Continue Protonix 40 mg IV push twice daily. Patient is status post albumin. 2. History of paroxysmal atrial fibrillation, not on anticoagulation prior to admission except for aspirin 81 mg daily for which it is held secondary to lack started stool, 3. Hypertension, lisinopril discontinued. Continue bisoprolol 2.5 mg daily furosemide was discontinued prior to her admission to [facility] due to dehydration from Covid. 4. Acute hypoxic respiratory failure secondary to Covid infection diagnosed 04/23/2020 given dexamethasone, did not require remdesivir, or monoclonal anti- body infusion currently on O2 supplementation, stable without any respiratory distress. Chest x-ray reprat for tomorrow, continue Lasix 20 mg IV bid, consult with pulmonary medicine appreciated. 5. Hyperlipidemia, on atorvastatin 40 mg daily 6. CKD stage II with recent CARMINA secondary to dehydration, Covid 7. Hypothyroidism, on levothyroxine 150 g daily 8. Generalized anxiety disorder, on BuSpar 10 mg 3 times a day 9. Previous tobacco use, quit in 1975 10. Diabetes mellitus type 2 uncontrolled with hyperglycemia secondary to ster oids, Accu-Cheks before meals and at bedtime, Lantus 5 units bid. 11. Macular degeneration 12. History of severe spinal stenosis L4, 13. Acute left ankle fracture, need to be clarified for weightbearing status left ankle, 14. Dementia, on Aricept 5 mg daily 15. Iron deficiency anemia on iron tablets 16. Insomnia and depression, on trazodone 25 mg at bedtime DVT prophylaxis SUSANA nietohiro, patient had fractured left ankle, at risk for blood clots in the leg, aspirin is held, we'll going to give low dose heparin 5000 units every 12 hours GI prophylaxis DISCHARGE PLAN [facility] return. Impression and plan of care have been directed as dictated by the signing candy guerra. Tami Shine nurse practitioner acting as scribe for signing physician. Objective - Vital Signs Vital signs: Vital Signs Temp 97.6 F 05/10/20 07:35 Pulse 67 05/10/20 07:35 Resp 18 05/10/20 07:35 BP 141/63 05/10/20 07:35 Pulse Ox 92 L 05/10/20 07:35 Intake & Output 05/09/20 05/10/20 05/10/20 18:59 06:59 18:59 Intake Total 200 Output Total 250 425 Balance -50 -425 Intake: Oral 200 Output: Urine 250 425 Other: Voiding Method Indwelling Catheter - Labs CBC & Chem 7: 05/10/20 08:25 05/11/20 06:09 Labs: Abnormal Lab Results - Last 24 Hours (Table) 05/09/20 05/09/20 05/09/20 Range/Units 06:12 06:12 11:46 POC Glucose (mg/dL) 224 H (75-99) mg/dL Hemoglobin A1c 7.0 H (4.0-6.0) % Lactate Dehydrogenase 348 H (120-246) U/L C-Reactive Protein 2.6 H (0.0-0.8) mg/dL 05/09/20 05/09/20 05/10/20 Range/Units 17:29 19:32 07:06 POC Glucose (mg/dL) 189 H 242 H 282 H (75-99) mg/dL Hemoglobin A1c (4.0-6.0) % Lactate Dehydrogenase (120-246) U/L C-Reactive Protein (0.0-0.8) mg/dL
[2020-05-11] MEDS: FUROSEMIDE 10 MG/ML 2 ML VIAL IV SCH ×2 (09:19→20:59)
[2020-05-11] MEDS: PANTOPRAZOLE 40 MG/10 ML VIAL IVP SCH ×2 (09:19→20:59)
[2020-05-11] MEDS: INSULIN DETEMIR (LEVEMIR) 100 UNIT/ML SYR SQ SCH ×2 (09:21→21:20)
[2020-05-11] MEDS: INSULIN ASPART (NovoLOG) 100 UNIT/ML VIAL SQ SCH ×4 (09:21→21:21)
[2020-05-11] MEDS: dexAMETHasone 2 MG TAB PO SCH (09:22)
[2020-05-11] MEDS: busPIRone HCl 10 MG TAB PO SCH ×2 (09:22→20:59)
[2020-05-11] MEDS: MULTIVITAMINS, THERA 1 EACH TAB PO SCH (09:22)
[2020-05-11] MEDS: MIDODRINE 5 MG TAB PO SCH (09:22)
[2020-05-11] MEDS: ZINC SULFATE 220 MG CAP PO SCH (09:22)
[2020-05-11] MEDS: CHOLECALCIFEROL 25 MCG (1000 IU) TABLET PO SCH (09:22)
[2020-05-11] MEDS: ASCORBIC ACID 500 MG TAB PO SCH (09:22)
[2020-05-11] MEDS: COLCHICINE 0.6 MG EACH PO SCH ×2 (09:22→20:59)
--- NOTE | 2020-05-11 10:07 | XR ---
EXAMINATION TYPE: XR chest 1V portable DATE OF EXAM: 05/11/2020 COMPARISON: 05/09/2020 HISTORY: Shortness of breath TECHNIQUE: Single frontal view of the chest is obtained. FINDINGS: Arthropathy of the shoulders greater on the left. Exostosis extending off the left humeral neck. Bilateral areas of increased interstitial markings in consolidation pleural effusion stable. H eart enlarged. IMPRESSION: Diffuse pleural-parenchymal changes stable correlate for pneumonia.
[2020-05-11 11:27] LABS: Glucose,Whole Blood 197 mg/dL (75-99)
[2020-05-11 13:46] LABS: Anisocytosis Slight; Basophils % (A) 0 %; Eosinophils # (A) 0.2 k/uL (0-0.7); Eosinophils % (A) 2 %; HCT 25.9 % (34.0-46.0); HGB 8.3 gm/dL (11.4-16.0); Hypochromasia Slight; Lymphocytes # (A) 0.4 k/uL (1.0-4.8); Lymphocytes % (A) 4 %; MCH 32.7 pg (25.0-35.0); MCHC 32.3 g/dL (31.0-37.0); MCV 101.4 fL (80.0-100.0); Macrocytosis Slight; Mean Platelet Volume 9.6; Monocytes # (A) 0.2 k/uL (0-1.0); Monocytes % (A) 3 %; Neutrophils # (A) 8.2 k/uL (1.3-7.7); Neutrophils % (A) 90 %; Platelet Count 233 k/uL (150-450); RBC 2.55 m/uL (3.80-5.40); RDW 16.3 % (11.5-15.5)
--- NOTE | 2020-05-11 15:21 | P.PN ---
Subjective Progress Note Date: 05/11/20 Principal diagnosis: COVID 19 pneumonia 85-year-old female patient, quite debilitated referred to us from [facility] on the [place] where she was rehabilitating following a left ankle fracture. She was initially treated for her fracture at [facility] and [place]. The patient was also diagnosed having positive Covid 19 on 04/18/2020. At that time the patient was treated with oxygen, Decadron, and no reported history of administration monoclonal antibodies or Remdesivir. She is known to have multiple other medical problems and diabetes mellitus type 2, hypertension, hyperlipidemia, chronic atrial fibrillation, hypothyroidism and macular degeneration. She has osteoporosis, severe kyphoscoliosis of the spine, severe central canal stenosis at level of L4 addition to compression fracture multiple levels in her T-spine. In addition, the patient presented to the emergency department this time because of black tarry stool. She is not taking any follow anticoagulants. I'm not sure if she was given anticoagulation at time of her Covid 19 infection. In any rate, the patient has normal coagulation profile. No previous history of peptic ulcer disease. No hematemesis. Presentation was consistent with upper GI bleeding. She did have another large black tarry stool on the morning of 05/07/2019. Currently the patient on oxygen at 15 L per minute nasal cannula. No reported aspiration. Chest x-ray is consistent with patchy bilateral pulmonary interstitial infiltrates and this is typical of an underlying Covid 19 related pneumonia. Despite this high adequate oxygen requirements, the patient is hemodynamically stable and she is not having any major respiratory distress and her white cell count of 10.4 and the most recent hemoglobin is at 8.4 which dropped down from 10.1. D-dimer is at 4.21. Creatinine is at 59 with a creatinine 0.8. LDL still elevated at 1425, CRP is elevated at 49.7, LFTs are showing some mild elevation of alkaline phosphatase at 232, AST and ALP are within normal limits with a normal bilirubin. On today's evaluation the patient's condition is stable. She is being seen in follow-up on 05/08/2020. She is having one bloody bowel movement every day which is melanotic which is small and hemoglobin has remained stable. We have decided to monitor this patient conservatively. Her oxygen level is still the same at 15 L per minute nasal cannula and the pulse ox currently is at 85-90%. Her blood sugar is slightly elevated due to Decadron and her serum blood sugar is up to 218. She is taking is on 6 mg by mouth daily. At the same time she is taking clear liquid/full liquid diet. In terms of blood sugar control, she is on insulin based on a sliding scale coverage. No plans for EGD or colonoscopy at this point in time. Hemoglobin stable at 8.8. No major hemodynamic changes. The patient is seen today 05/09/2020 in follow-up on the regular medical floor. She is currently sitting up in bed. Wake, alert in no acute distress. She is maintaining O2 saturations in the 90s on 8 L high flow nasal cannula. Chest x- ray shows bilateral patchy areas of infiltrates and stable pleural effusions. She does have severe kyphoscoliosis. Has been having black tarry stools. Remains on Protonix. White count 9.4. Hemoglobin 8.1. Sodium 136. Potassium 4.1. Bicarb 15. Creatinine 1.61. LDH 348. C-reactive protein 2.6. Trending down. Pro-calcitonin 0.05. On 05/10/2020 patient seen in follow-up on medical floor, she is resting quietly in bed, there is to be in no acute distress, she is currently on 6 L of oxygen her pulse ox is ranging between 90-200%, no fever, hemodynamically she stable, a ppears to be breathing comfortably, patient is a very poor historian,she has severe kyphoscoliosis, she is able to answer simple questions, denies any acute distress, lasr chest x-ray yesterday showed bilateral patchy areas of infiltrate and pleural effusion. Her inflammatory markers have improved since admission, her pro-calcitonin level was negative at 0.05, she is not on any prophylactic anticoagulation in view of recent history of dark-colored stools, patient has had no active bleeding. Yesterday's labs revealed hemoglobin of 8.1, platelet count of 255, last d-dimer was on 05/07/2020 and was at 4.21. No lower extremity swelling, no worsening dyspnea. On 05/11/2020 patient seen in follow-up on medical floor, she remains on 6 L of oxygen, which rapid down to 4 L, and her pulse ox remained at 99%. Per nursing staff previous attempts to wean the FiO2 down were unsuccessful as the patient would desaturate to 70s and 80s while eating or sleeping, and subsequently FiO2 would have to be titrated back up, currently maintaining O2 sat at 99% on 4 L, she is breathing comfortably, she is answering simple questions, she does have underlying dementia, she is a poor historian, but she denies any acute distress, no shortness of breath, no fever or chills. Today's chest x-ray reviewed s howing diffuse pleural parenchymal changes. She remains on IV Lasix 20 mg every 12 hours, she remains on oral Decadron 6 mg daily, oral colchicine, and supplements. Mcmullen catheter is in, and patient is in -2.2 and the fluid balance over the last 24 hours. Objective - Vital Signs Vital signs: Vital Signs Temp 98.2 F 05/11/20 13:31 Pulse 58 L 05/11/20 13:31 Resp 22 05/11/20 13:31 BP 131/66 05/11/20 13:31 Pulse Ox 99 05/11/20 13:31 Intake & Output 05/10/20 05/11/20 05/11/20 18:59 06:59 18:59 Intake Total 100 Output Total 650 1700 Balance -650 -1600 Weight 81.647 kg Intake: Oral 100 Output: Urine 650 1700 Other: Voiding Method Indwelling Catheter Indwelling Catheter Indwelling Catheter - Exam GENERAL EXAM: Alert, very pleasant, 85-year-old white female, currently on 4 L of oxygen and pulse ox between 99%, resting comfortably in bed, patient has severe kyphoscoliosis of the spine, comfortable in no apparent distress. HEAD: Normocephalic/atraumatic. EYES: Normal reaction of pupils, equal size. Conjunctiva pink, sclera white. NOSE: Clear with pink turbinates. THROAT: No erythema or exudates. NECK: No masses, no JVD, no thyroid enlargement, no adenopathy. CHEST: No chest wall deformity. Symmetrical expansion. LUNGS: Equal air entry with no crackles, wheeze, rhonchi or dullness. CVS: Regular rate and rhythm, normal S1 and S2, no gallops, no murmurs, no rubs ABDOMEN: Soft, nontender. No hepatosplenomegaly, normal bowel sounds, no guarding or rigidity. EXTREMITIES: No clubbing, no edema, no cyanosis, 2+ pulses and upper and lower extremities. MUSCULOSKELETAL: Muscle strength and tone normal. SPINE: Severe kyphoscoliosis of the spine noted SKIN: No rashes CENTRAL NERVOUS SYSTEM: Alert and oriented -2. No focal deficits, tone is normal in all 4 extremities. PSYCHIATRIC: Alert and oriented -2. Appropriate affect. Intact judgment and insight. - Labs CBC & Chem 7: 05/11/20 13:19 05/11/20 06:09 Labs: Abnormal Lab Results - Last 24 Hours (Table) 05/10/20 05/10/20 05/10/20 Range/Units 08:25 16:56 20:39 RBC (3.80-5.40) m/uL Hgb (11.4-16.0) gm/dL Hct (34.0-46.0) % MCV (80.0-100.0) fL RDW (11.5-15.5) % Neutrophils # (1.3-7.7) k/uL Lymphocytes # (1.0-4.8) k/uL Chloride 110 H (96-109) mmol/L Carbon Dioxide 18.1 L (21.6-31.8) mmol/L BUN 60.0 H (9.0-27.0) mg/dL Creatinine (0.52-1.04) mg/dL Est GFR (CKD-EPI)AfAm 36.2 L (60.0-200.0) Est GFR (CKD-EPI)NonAf 31.2 L (60.0-200.0) BUN/Creatinine Ratio 40.00 H (12.00-20.00) Ratio Glucose 232 H (70-110) mg/dL POC Glucose (mg/dL) 314 H 308 H (75-99) mg/dL Calcium 8.4 L (8.7-10.3) mg/dL AST 37 H (13-35) U/L Alkaline Phosphatase 232 H (41-126) U/L Total Protein 5.6 L (6.2-8.2) g/dL Albumin (3.5-5.0) g/dL 05/11/20 05/11/20 05/11/20 Range/Units 06:09 07:36 11:26 RBC (3.80-5.40) m/uL Hgb (11.4-16.0) gm/dL Hct (34.0-46.0) % MCV (80.0-100.0) fL RDW (11.5-15.5) % Neutrophils # (1.3-7.7) k/uL Lymphocytes # (1.0-4.8) k/uL Chloride 110 H (96-109) mmol/L Carbon Dioxide 18 L (21.6-31.8) mmol/L BUN 58 H (9.0-27.0) mg/dL Creatinine 1.16 H (0.52-1.04) mg/dL Est GFR (CKD-EPI)AfAm (60.0-200.0) Est GFR (CKD-EPI)NonAf (60.0-200.0) BUN/Creatinine Ratio (12.00-20.00) Ratio Glucose 187 H (70-110) mg/dL POC Glucose (mg/dL) 169 H 197 H (75-99) mg/dL Calcium (8.7-10.3) mg/dL AST 41 H (13-35) U/L Alkaline Phosphatase 168 H (41-126) U/L Total Protein 5.5 L (6.2-8.2) g/dL Albumin 3.0 L (3.5-5.0) g/dL 05/11/20 Range/Units 13:19 RBC 2.55 L (3.80-5.40) m/uL Hgb 8.3 L (11.4-16.0) gm/dL Hct 25.9 L (34.0-46.0) % MCV 101.4 H (80.0-100.0) fL RDW 16.3 H (11.5-15.5) % Neutrophils # 8.2 H (1.3-7.7) k/uL Lymphocytes # 0.4 L (1.0-4.8) k/uL Chloride (96-109) mmol/L Carbon Dioxide (21.6-31.8) mmol/L BUN (9.0-27.0) mg/dL Creatinine (0.52-1.04) mg/dL Est GFR (CKD-EPI)AfAm (60.0-200.0) Est GFR (CKD-EPI)NonAf (60.0-200.0) BUN/Creatinine Ratio (12.00-20.00) Ratio Glucose (70-110) mg/dL POC Glucose (mg/dL) (75-99) mg/dL Calcium (8.7-10.3) mg/dL AST (13-35) U/L Alkaline Phosphatase (41-126) U/L Total Protein (6.2-8.2) g/dL Albumin (3.5-5.0) g/dL Assessment and Plan Plan: Assessment: 1 Covid 19 related pneumonia diagnosed approximately 2 weeks ago and the patient does have residual pulmonary infiltrates and residual hypoxemia and currently is on 15 L of oxygen by nasal cannula. I am a bit concerned about the worsening oxygenation. This could be related to progression of her underlying Covid 19 related pneumonia. I do not have any signs of superinfection with bacteria this point in time. No signs of any decub's at heart failure. No signs of any aspiration. The patient is a 15 L of Bactrim by nasal cannula. She remains on Decadron. Inflammatory markers trending down 2 upper GI bleed as the patient was having melanotic stool and the patient's hemoglobin had dropped from a baseline of 13.5 from 04/18/2020. No transfusions are being given for now and the patient is being monitored clinically. No plans to do any EGD at this point in time based on age and comorbidities. The patient is still having some residual melanotic stools, no active bleeding and hemoglobin stable at 8.1. 3 hypertension 4 history of coronary artery disease with previous non-STEMI and the patient has a preserved LV function with moderate enlargement of the RA, and secondary pulmonary hypertension with a PA pressure of around 55 5 chronic stage II kidney disease 6 hypothyroidism 7 chronic thoracic kyphosis addition to T-spine compression fracture multiple levels in addition to lumbar spine compression fractures 8 history of lumbar spine stenosis at the level of L4 9 history of left ankle fracture and the patient is currently wearing a immobilizing cast 10 dementia 11 iron deficiency anemia 12 paroxysmal atrial fibrillation/flutter, no anticoagulants for now and the patient was on aspirin which is currently on hold Plan: Patient's FiO2 has been weaned down to 4 L, maintaining O2 sat at around 99%, continue weaning FiO2, vital signs have been stable, no worsening dyspnea, continue diuretics for another 24 hours, continue oral Decadron, continue colchicine, SCDs for DVT prophylaxis, there has been no recurrence of bleeding, today's labs have been reviewed, today's chest x-ray has been reviewed, from pulmonary perspective patient could be considered for discharge back to the [facility] in the next 24 hours. I performed a history & physical examination of the patient and discussed their management with my nurse practitioner, Ryann Hernandez. I reviewed the nurse practitioner's note and agree with the documented findings and plan of care. Lung sounds are positive for diminished breath sounds. The findings and the impression was discussed with the patient. I attest to the documentation by the nurse practitioner. Time with Patient: Less than 30
--- NOTE | 2020-05-11 16:02 | P.PN ---
Subjective Progress Note Date: 05/11/20 his is a pleasant 85-year-old female with unknown PCP, she [facility] in [facility] [place], for subacute rehabilitation. She sustained a fracture on the left ankle, for which Was [facility] at [facility],, she also was diagnosed to have cough. On 04/18/2020, for which family members are in critical condition, apparently the son was in ICU at that time of her hospitalization. She required O2 at nighttime, for which because of cold, now she required O2 [id number]. She was given dexamethasone, and no antibiotic was given at that time, and no monoclonal antibodies is given at the time, remdesivir not required . patient has underlying diabetes mellitus type 2, hypertension, hyperlipidemia, atrial fibrillation, hypothyroidism, macular degeneration, hepatitis 50 years ago, osteoporosis, right broken wrist, severe central canal stenosis L4, compression fractures T 11 2 L4, She presents to emergency room with blood as it was black and burgundy in the stool, as well as mental status changes, for which the original recommendation comes from myself at [facility] on the [place]. Patient has diarrhea. Weaker than usual and has diminished appetite. No respiratory distress when evaluated 05/06: Patient had one black tarry stool today. C. difficile toxin was not tested as he levi She is known to have bilateral lower extremity edema specially left ankle edema for which ultrasound ordered to rule out DVT. Telemetry will be discontinued. H. pylori is pending. Patient has been afebrile, heart rate 65, blood pressure 108/58, pulse ox 98% on 4L nc. 05/07: The patient did have a very large black tarry stool this morning. She denies having any abdominal pain. She remains pleasantly confused. She is on 15 L high flow nasal cannula and nonrebreather which was started yesterday. She had some decreased urine output as well. Blood pressure is marginal. Lisinopril will be discontinued. IV fluids at 75 mL per hour. Stool to be checked for C. difficile colitis. SUSANA michelle added. Heparin subcu discontinued. Consult added for Dr. Redman regarding hypoxia and Covid 19. Chest x-ray ordered. 05/08:, Patient does not complain of anything significant, however she is requiring 15 L of nasal cannula O2, pulse ox at 84-90%, she is on dexamethasone, hemoglobin is stable at 8.8, no plans for EGD or colonoscopy at this time from GI, secondary to hypoxemic respiratory failure. Blood sugars higher, on Decadron 6 mg daily, Lantus or edema initiated at 10 units, for iron studies, Covid markers trending downward slightly, check for CK, a bile for rhabdo, monitor for nutrition check A1c 05/09, patient has diminished appetite, she wishes not back down to sleep, inquired on nutrition, patient is not eating as much, she still is hypoxemic, O2 at high flow, 8 L, 93-100%, additional Lasix was given, however patient has diminished urine flow, and is also now hypotensive. We have increase IV fluids to 100 mL an hour, albumin infusion, 25 g 4 doses every 6 hours, with a drain started at 10 mg 3 times a day, Lasix 40 mg IV daily, patient has anasarca. Discontinue bisoprolol secondary to bradycardia discontinue allopurinol discontinue Namenda for now to limit pill burden hemoglobin at 8.1, no current plans for blood transfusion, creatinine was now at 1.6 from a previous0. 8 for Mcmullen catheter is placed for I's and O's, 05/10: Patient is currently on 6 L high flow nasal cannula with pulse ox of 92- 100%. She's been afebrile, heart rate 67, blood pressure 141/63. Blood sugars 189-282. She remains pleasantly confused. Blood pressure medications adjusted and midodrine decreased to 5 mg bid. Lasix 20 mg IVP bid. Repeat chest x-ray ordered. Patient had bright red rectal bleeding but did not have any for 2 days prior. Insulin changed to Lantus 5 units bid. 05/11 patient found to be pleasantly confused currently on 4 L of oxygen titrated down from 6 L. She appears to be comfortable. Repeat stat labs ordered with hemoglobin improved to 8.3 this morning. We will repeat CBC tomorrow for possible endoscopy by gastroenterology. If patient continues to be stable with improvement in patient's oxygenation patient will be safely discharged to [facility] tomorrow REVIEW OF SYSTEMS Constitutional: No fever, no chills, no night sweats. No weight change. Positive weakness, fatigue or lethargy. No daytime sleepiness. EENT: No headache. No blurred vision or double vision, no loss of vision. No nasal drainage or congestion. No epistaxis. No sore throat. Lungs: Reports shortness of breath, cough, no sputum production. No wheezing. Cardiovascular: No chest pain, noted lower extremity edema. No palpitations. No paroxysmal nocturnal dyspnea. No orthopnea. No lightheadedness or dizziness. No syncopal episodes. Abdominal: No abdominal pain. No nausea, vomiting. Reports diarrhea. No constipation. Reported rectal bleeding. No loss of appetite. Genitourinary: No dysuria, increased frequency, urgency. No urinary retention. Musculoskeletal: No myalgias. Positive muscle weakness, no gait dysfunction, no frequent falls. No back pain. No neck pain. Integumentary: No wounds, no lesions. No rash or pruritus. Neurologic: No aphasia. No facial droop. No change in mentation. No head injury. Psychiatric: No depression. No anxiety. Endocrine: Reported abnormal blood sugars. Objective - Vital Signs Vital signs: Vital Signs Temp 98.2 F 05/11/20 13:31 Pulse 58 L 05/11/20 13:31 Resp 22 05/11/20 13:31 BP 131/66 05/11/20 13:31 Pulse Ox 99 05/11/20 13:31 Intake & Output 05/10/20 05/11/20 05/11/20 18:59 06:59 18:59 Intake Total 100 Output Total 650 1700 Balance -650 -1600 Weight 81.647 kg Intake: Oral 100 Output: Urine 650 1700 Other: Voiding Method Indwelling Catheter Indwelling Catheter Indwelling Catheter - Exam PHYSICAL EXAMINATION Gen: This is as an 85-year-old female. She noted to be pleasantly confused. She is able to answer questions appropriately. Patient appears to be in no acute distress at the time of evaluation. HEENT: Head is atraumatic, normocephalic. Pupils equal, round. Sclerae is anicteric. NECK: Supple. No JVD. No lymphadenopathy. No thyromegaly. LUNGS: Crackles in the bases bilat. No wheezes or rhonchi. No intercostal retractions. HEART: Regular rate and rhythm. No murmur. ABDOMEN: Soft. Bowel sounds are present. No masses. No tenderness. EXTREMITIES: 1+ bilateral pedal edema, worse on the right. No calf tenderness. NEUROLOGICAL: Patient is awake, alert and oriented to person. Generalized weakness. - Labs CBC & Chem 7: 05/11/20 13:19 05/11/20 06:09 Labs: Abnormal Lab Results - Last 24 Hours (Table) 05/10/20 05/10/20 05/11/20 Range/Units 16:56 20:39 06:09 RBC (3.80-5.40) m/uL Hgb (11.4-16.0) gm/dL Hct (34.0-46.0) % MCV (80.0-100.0) fL RDW (11.5-15.5) % Neutrophils # (1.3-7.7) k/uL Lymphocytes # (1.0-4.8) k/uL Chloride 110 H (98-107) mmol/L Carbon Dioxide 18 L (22-30) mmol/L BUN 58 H (7-17) mg/dL Creatinine 1.16 H (0.52-1.04) mg/dL Glucose 187 H (74-99) mg/dL POC Glucose (mg/dL) 314 H 308 H (75-99) mg/dL AST 41 H (14-36) U/L Alkaline Phosphatase 168 H (38-126) U/L Total Protein 5.5 L (6.3-8.2) g/dL Albumin 3.0 L (3.5-5.0) g/dL 05/11/20 05/11/20 05/11/20 Range/Units 07:36 11:26 13:19 RBC 2.55 L (3.80-5.40) m/uL Hgb 8.3 L (11.4-16.0) gm/dL Hct 25.9 L (34.0-46.0) % MCV 101.4 H (80.0-100.0) fL RDW 16.3 H (11.5-15.5) % Neutrophils # 8.2 H (1.3-7.7) k/uL Lymphocytes # 0.4 L (1.0-4.8) k/uL Chloride (98-107) mmol/L Carbon Dioxide (22-30) mmol/L BUN (7-17) mg/dL Creatinine (0.52-1.04) mg/dL Glucose (74-99) mg/dL POC Glucose (mg/dL) 169 H 197 H (75-99) mg/dL AST (14-36) U/L Alkaline Phosphatase (38-126) U/L Total Protein (6.3-8.2) g/dL Albumin (3.5-5.0) g/dL Assessment and Plan Plan: ASSESSMENT AND PLAN 1. Acute black tarry stool, with weakness and increasing confusion and metabolic encephalopathy secondary to acute GI bleed, presenting hemoglobin of 9.0, previous hemoglobin of 13.5 on 04/18/2020, consult with gastroenterology, hold aspirin, will need transfusion if below 7. GI consult appreciated. No endoscopy at this time. Continue Protonix 40 mg IV push twice daily. Patient is status post albumin.CBC tomorrow 2. History of paroxysmal atrial fibrillation, not on anticoagulation prior to admission except for aspirin 81 mg daily for which it is held secondary to lack started stool, 3. Hypertension, lisinopril discontinued. Continue bisoprolol 2.5 mg daily furosemide was discontinued prior to her admission to [facility] due to dehydration from Covid. 4. Acute hypoxic respiratory failure secondary to Covid infection diagnosed 04/23/2020 given dexamethasone, did not require remdesivir, or monoclonal anti- body infusion currently on O2 supplementation, stable without any respiratory distress. Chest x-ray reprat for tomorrow, continue Lasix 20 mg IV bid fpr another 24 our consult with pulmonary medicine appreciated. 5. Hyperlipidemia, on atorvastatin 40 mg daily 6. CKD stage II with recent CARMINA secondary to dehydration, Covid 7. Hypothyroidism, on levothyroxine 150 g daily 8. Generalized anxiety disorder, on BuSpar 10 mg 3 times a day 9. Previous tobacco use, quit in 1975 10. Diabetes mellitus type 2 uncontrolled with hyperglycemia secondary to steroids, Accu-Cheks before meals and at bedtime, Lantus 5 units bid. 11. Macular degeneration 12. History of severe spinal stenosis L4, 13. Acute left ankle fracture, need to be clarified for weightbearing status left ankle, 14. Dementia, on Aricept 5 mg daily 15. Iron deficiency anemia on iron tablets 16. Insomnia and depression, on trazodone 25 mg at bedtime DVT prophylaxis SUSANA michelle, patient had fractured left ankle, at risk for blood clots in the leg, aspirin is held, we'll going to give low dose heparin 5000 units every 12 hours GI prophylaxis Protonix 40 twice a day Disposition likely discharge to [facility] tomorrow if no plan for endoscopy and hemoglobin stable
--- NOTE | 2020-05-11 16:22 | P.PN ---
Subjective Progress Note Date: 05/11/20 Principal diagnosis: Melena An 85-year-old female who is seen in follow-up evaluation with a recent diagnosis of Covid 19 infection who was brought into the hospital for further e valuation of dark colored stool. The patient was at [facility] where was noted she had dark colored stool and sent in to the hospital for evaluation. The patient remains pleasantly confused and unreliable during questions. Nursing reports she has a dark stool through the evening. Hemoglobin improved to 8.3 today. Patient denies any abdominal pain, nausea or vomiting. She is on 4 L of nasal canula. Objective - Vital Signs Vital signs: Vital Signs Temp 98.2 F 05/11/20 13:31 Pulse 58 L 05/11/20 13:31 Resp 22 05/11/20 13:31 BP 131/66 05/11/20 13:31 Pulse Ox 99 05/11/20 13:31 Intake & Output 05/10/20 05/11/20 05/11/20 18:59 06:59 18:59 Intake Total 100 Output Total 650 1700 Balance -650 -1600 Weight 81.647 kg Intake: Oral 100 Output: Urine 650 1700 Other: Voiding Method Indwelling Catheter Indwelling Catheter Indwelling Catheter - Exam General appearance: The patient is alert, oriented to self, pleasantly confused, appears in no acute distress. HET: Head is normocephalic and atraumatic. Conjunctiva pink. Sclera anicteric. Neck: Supple without lymphadenopathy. Abdomen: Soft, obese, nontender, nondistended with bowel sounds. No guarding or rigidity. Extremities: Normal skin color and turgor. No pedal edema Skin: No rashes, no jaundice Neurological: No focal deficits. Alert and oriented x1 - Labs CBC & Chem 7: 05/11/20 13:19 05/11/20 06:09 Labs: Abnormal Lab Results - Last 24 Hours (Table) 05/10/20 05/10/20 05/11/20 Range/Units 16:56 20:39 06:09 RBC (3.80-5.40) m/uL Hgb (11.4-16.0) gm/dL Hct (34.0-46.0) % MCV (80.0-100.0) fL RDW (11.5-15.5) % Neutrophils # (1.3-7.7) k/uL Lymphocytes # (1.0-4.8) k/uL Chloride 110 H (98-107) mmol/L Carbon Dioxide 18 L (22-30) mmol/L BUN 58 H (7-17) mg/dL Creatinine 1.16 H (0.52-1.04) mg/dL Glucose 187 H (74-99) mg/dL POC Glucose (mg/dL) 314 H 308 H (75-99) mg/dL AST 41 H (14-36) U/L Alkaline Phosphatase 168 H (38-126) U/L Total Protein 5.5 L (6.3-8.2) g/dL Albumin 3.0 L (3.5-5.0) g/dL 05/11/20 05/11/20 05/11/20 Range/Units 07:36 11:26 13:19 RBC 2.55 L (3.80-5.40) m/uL Hgb 8.3 L (11.4-16.0) gm/dL Hct 25.9 L (34.0-46.0) % MCV 101.4 H (80.0-100.0) fL RDW 16.3 H (11.5-15.5) % Neutrophils # 8.2 H (1.3-7.7) k/uL Lymphocytes # 0.4 L (1.0-4.8) k/uL Chloride (98-107) mmol/L Carbon Dioxide (22-30) mmol/L BUN (7-17) mg/dL Creatinine (0.52-1.04) mg/dL Glucose (74-99) mg/dL POC Glucose (mg/dL) 169 H 197 H (75-99) mg/dL AST (14-36) U/L Alkaline Phosphatase (38-126) U/L Total Protein (6.3-8.2) g/dL Albumin (3.5-5.0) g/dL Assessment and Plan (1) Melena Narrative/Plan: 85-year-old female with multiple medical comorbidities currently being treated for infection with COVID-19. Patient noted to have dark-colored bowel movements and fall in hemoglobin at 9 on presentation currently 10.1. He denies any history of peptic ulcer disease. She is unsure of prior EGD but does report remote history of colonoscopy. She does not believe she is on any NSAID medication but does take daily iron. Unclear etiology, may be related to gastritis/esophagitis, peptic ulcer disease, AVM, or other etiology. Due to multiple comorbidities including poor respiratory status and advanced age will hold off at this time for any endoscopies. Current Visit: Yes Status: Acute Code(s): K92.1 - MELENA SNOMED Code(s): 8410396 (2) Stool guaiac positive Current Visit: Yes Status: Acute Code(s): R19.5 - OTHER FECAL ABNORMALITIES SNOMED Code(s): 28807835 Plan: Supportive care Diet as tolerated Continue to monitor hemoglobin and hematocrit and transfuse as needed Continue to monitor for signs or symptoms of GI bleeding Continue management per Covid 19 pneumonia NO plans for endoscopy at this time due to multiple comorbidities and Covid-19 penumonia Thank you for allowing us to participate in the care of the patient Dr. Darrin Arita I agree with the dictator's note, documented as a scribe by Amy Garzon.
[2020-05-11 16:44] LABS: Glucose,Whole Blood 92 mg/dL (75-99)
[2020-05-11] MEDS: LEVOTHYROXINE 75 MCG TAB PO SCH (20:59)
[2020-05-11] MEDS: traZODone HCL 50 MG TAB PO SCH (20:59)
[2020-05-11 21:10] LABS: Glucose,Whole Blood 178 mg/dL (75-99)
[2020-05-12 07:11] LABS: Glucose,Whole Blood 87 mg/dL (75-99)
[2020-05-12] MEDS: INSULIN ASPART (NovoLOG) 100 UNIT/ML VIAL SQ SCH ×2 (08:05→11:46)
--- NOTE | 2020-05-12 09:05 | P.DS ---
Providers Date of admission: 05/05/20 15:17 Expected date of discharge: 05/12/20 Attending physician: Leah Hernandez Consults: 05/05/20 15:18 Consult Physician Routine Consulting Provider: Nirmal Michaels Consult Reason/Comments: GI Bleed Do you want consulting provider notified?: Yes 05/07/20 09:45 Consult Physician Routine Consulting Provider: Elizabeth Redman Consult Reason/Comments: covid, hypoxia Do you want consulting provider notified?: Yes Primary care physician: Leah Hernandez [facility] Course: This is a pleasant 85-year-old female with unknown PCP, [place] for sub[place]. She sustained a fracture on the left ankle, for which Was provided at [facility],, she also was diagnosed to have cough. On 04/18/2020, for which family members are in critical condition, apparently the son was in ICU at that time of her hospitalization. She required O2 at nighttime, for which because of cold, now she required O2 [id number]. She was given dexamethasone, and no antibiotic was given at that time, and no monoclonal antibodies is given at the time, remdesivir not required . patient has underlying diabetes mellitus type 2, hypertension, hyperlipidemia, atrial fibrillation, hypothyroidism, macular degeneration, hepatitis 50 years ago, osteoporosis, right broken wrist, severe central canal stenosis L4, compression fractures T 11 2 L4, She presents to emergency room with blood as it was black and burgundy in the stool, as well as mental status changes, for which the original recommendation comes from myself at [facility]. Patient has diarrhea. Weaker than usual and has diminished appetite. No respiratory distress when evaluated 05/06: Patient had one black tarry stool today. C. difficile toxin was not tested as he levi She is known to have bilateral lower extremity edema specially left ankle edema for which ultrasound ordered to rule out DVT. Telemetry will be discontinued. H. pylori is pending. Patient has been afebrile, heart rate 65, blood pressure 108/58, pulse ox 98% on 4L nc. 05/07: The patient did have a very large black tarry stool this morning. She denies having any abdominal pain. She remains pleasantly confused. She is on 15 L high flow nasal cannula and nonrebreather which was started yesterday. She had some decreased urine output as well. Blood pressure is marginal. Lisinopril will be discontinued. IV fluids at 75 mL per hour. Stool to be checked for C. difficile colitis. SUSANA michelle added. Heparin subcu discontinued. Consult added for Dr. Redman regarding hypoxia and Covid 19. Chest x-ray ordered. 05/08:, Patient does not complain of anything significant, however she is requiring 15 L of nasal cannula O2, pulse ox at 84-90%, she is on dexamethasone, hemoglobin is stable at 8.8, no plans for EGD or colonoscopy at this time from GI, secondary to hypoxemic respiratory failure. Blood sugars higher, on Decadron 6 mg daily, Lantus or edema initiated at 10 units, for iron studies, Covid markers trending downward slightly, check for CK, a bile for rhabdo, monitor for nutrition check A1c 05/09, patient has diminished appetite, she wishes not back down to sleep, inquired on nutrition, patient is not eating as much, she still is hypoxemic, O2 at high flow, 8 L, 93-100%, additional Lasix was given, however patient has diminished urine flow, and is also now hypotensive. We have increase IV fluids to 100 mL an hour, albumin infusion, 25 g 4 doses every 6 hours, with a drain started at 10 mg 3 times a day, Lasix 40 mg IV daily, patient has anasarca. Discontinue bisoprolol secondary to bradycardia discontinue allopurinol discontinue Namenda for now to limit pill burden hemoglobin at 8.1, no current plans for blood transfusion, creatinine was now at 1.6 from a previous0. 8 for Mcmullen catheter is placed for I's and O's, 05/10: Patient is currently on 6 L high flow nasal cannula with pulse ox of 92- 100%. She's been afebrile, heart rate 67, blood pressure 141/63. Blood sugars 189-282. She remains pleasantly confused. Blood pressure medications adjusted and midodrine decreased to 5 mg bid. Lasix 20 mg IVP bid. Repeat chest x-ray ordered. Patient had bright red rectal bleeding but did not have any for 2 days prior. Insulin changed to Lantus 5 units bid. 05/11 patient found to be pleasantly confused currently on 4 L of oxygen titrated down from 6 L. She appears to be comfortable. Repeat stat labs ordered with hemoglobin improved to 8.3 this morning. We will repeat CBC tomorrow for possible endoscopy by gastroenterology. If patient continues to be stable with improvement in patient's oxygenation patient will be safely discharged to custodial tomorrow. 05/12: Patient has no new complaints. Hemoglobin today is at 8.5. We will plan to discontinue Mcmullen catheter. Aspirin will be on hold for 1 week and then resume it the custodial. Blood sugars are running between 87 and 178. Patient will be discharged back to custodial today in stable condition. Discharge diagnoses: 1. Acute black tarry stool, with weakness and increasing confusion and metabolic encephalopathy secondary to acute GI bleed and acute blood loss anemia not requiring transfusion 2. History of paroxysmal atrial fibrillation, not on anticoagulation prior to admission 3. Hypertension 4. Acute hypoxic respiratory failure secondary to Covid infection diagnosed 04/23/2020 5. Hyperlipidemia 6. CKD stage II with recent CARMINA secondary to dehydration, Covid 7. Hypothyroidism 8. Generalized anxiety disorder 9. Previous tobacco use, quit in 1975 10. Diabetes mellitus type 2 uncontrolled with hyperglycemia secondary to steroids 11. Macular degeneration 12. History of severe spinal stenosis L4, 13. Acute left ankle fracture 14. Dementia 15. Iron deficiency anemia 16. Insomnia and recurrent depression Discharge plan: Return to [facility] Impression and plan of care have been directed as dictated by the signing physician. Tami Shine nurse practitioner acting as scribe for signing physician. Patient Condition at Discharge: Good Plan - Discharge Summary Discharge Rx Participant: No New Discharge Prescriptions: New busPIRone HCl [Buspar] 10 mg PO BID@0900,2100 tab INSULIN ASPART (NovoLOG) [NovoLOG (formulary)] 0 unit SQ ACHS vial Zinc Sulfate [Orazinc] 220 mg PO DAILY cap Pantoprazole Sodium [Protonix] 40 mg PO BID #60 tablet. Ascorbic Acid [Vitamin C] 1,000 mg PO DAILY tab Continue Furosemide [Lasix] 20 mg PO Q12H PRN PRN Reason: Shortness Of Breath OR Edema Acetaminophen Tab [Tylenol] 650 mg PO Q4H PRN PRN Reason: Pain Glucerna Shake 120 can PO BID@0900,1700 Cranberry 300mg 300 mg PO BID busPIRone HCl [Buspar] 10 mg PO BID@0900,2100 traZODone HCL 25 mg PO HS Multivitamins, Thera [Multivitamin (formulary)] 1 tab PO DAILY Levothyroxine Sodium [Synthroid] 150 mcg PO HS Cholecalciferol [Vitamin D3 (25 Mcg = 1000 Iu)] 25 mcg PO DAILY Lactobacillus Acidophilus [Acidophilus] 1 tab PO DAILY Ferrous Sulfate [Iron (65 MG Elemental)] 325 mg PO DAILY Donepezil [Aricept] 5 mg PO HS busPIRone HCl [Buspar] 20 mg PO DAILY@1200 Bisoprolol [Zebeta] 2.5 mg PO DAILY Allopurinol [Zyloprim] 100 mg PO HS Changed Atorvastatin Calcium [Lipitor] 20 mg PO HS #0 Discontinued glipiZIDE [Glucotrol] 10 mg PO BID@0900,1700 lisinopriL [Zestril] 20 mg PO DAILY Aspirin 81 mg PO DAILY Discharge Medication List Acetaminophen Tab [Tylenol] 650 mg PO Q4H PRN 05/05/20 [History] Allopurinol [Zyloprim] 100 mg PO HS 05/05/20 [History] Bisoprolol [Zebeta] 2.5 mg PO DAILY 05/05/20 [History] Cholecalciferol [Vitamin D3 (25 Mcg = 1000 Iu)] 25 mcg PO DAILY 05/05/20 [History] Cranberry 300mg 300 mg PO BID 05/05/20 [History] Donepezil [Aricept] 5 mg PO HS 05/05/20 [History] Ferrous Sulfate [Iron (65 MG Elemental)] 325 mg PO DAILY 05/05/20 [History] Furosemide [Lasix] 20 mg PO Q12H PRN 05/05/20 [History] Glucerna Shake 120 can PO BID@0900,1700 05/05/20 [History] Lactobacillus Acidophilus [Acidophilus] 1 tab PO DAILY 05/05/20 [History] Levothyroxine Sodium [Synthroid] 150 mcg PO HS 05/05/20 [History] Multivitamins, Thera [Multivitamin (formulary)] 1 tab PO DAILY 05/05/20 [History] busPIRone HCl [Buspar] 10 mg PO BID@0900,2100 05/05/20 [History] busPIRone HCl [Buspar] 20 mg PO DAILY@1200 05/05/20 [History] traZODone HCL 25 mg PO HS 05/05/20 [History] Ascorbic Acid [Vitamin C] 1,000 mg PO DAILY tab 05/12/20 [Rx] Atorvastatin Calcium [Lipitor] 20 mg PO HS #0 05/12/20 [Rx] INSULIN ASPART (NovoLOG) [NovoLOG (formulary)] 0 unit SQ ACHS vial 05/12/20 [Rx] Pantoprazole Sodium [Protonix] 40 mg PO BID #60 tablet.dr 05/12/20 [Rx] Zinc Sulfate [Orazinc] 220 mg PO DAILY cap 05/12/20 [Rx] busPIRone HCl [Buspar] 10 mg PO BID@0900,2100 tab 05/12/20 [Rx] Follow up Appointment(s)/Referral(s): Leah Hernandez MD [Primary Care Provider] - 1-2 days [facility] on the [place], [NON-STAFF] - As Needed
[2020-05-12 09:20] LABS: Basophils # (A) 0.01 X 10*3/uL (0.00-0.10); Basophils % (A) 0.1 %; Eosinophils # (A) 0.02 X 10*3/uL (0.04-0.35); Eosinophils % (A) 0.2 %; HCT 25.7 % (37.2-46.3); HGB 8.2 g/dL (12.0-15.0); Lymphocytes # (A) 0.78 X 10*3/uL (0.90-5.00); MCH 32.9 pg (27.0-32.0); MCHC 31.9 g/dL (32.0-37.0); MCV 103.2 fL (80.0-97.0); Mean Platelet Volume 12.3 fL (9.5-12.2); Monocytes # (A) 0.64 X 10*3/uL (0.20-1.00); Monocytes % (A) 7.4 %; Neutrophils # (A) 7.15 X 10*3/uL (1.80-7.70); Neutrophils % (A) 82.6 %; Platelet Count 219 X 10*3/uL (140-440); RBC 2.49 X 10*6/uL (4.10-5.20); RDW 17.2 % (11.5-14.5); WBC 8.66 X 10*3/uL (4.50-10.00)
[2020-05-12 09:34] LABS: Anisocytosis Slight; HCT 26.5 % (34.0-46.0); HGB 8.5 gm/dL (11.4-16.0); Hypochromasia Slight; MCH 32.9 pg (25.0-35.0); MCHC 31.9 g/dL (31.0-37.0); MCV 103.1 fL (80.0-100.0); Macrocytosis Moderate; Mean Platelet Volume 9.7; Platelet Count 220 k/uL (150-450); RBC 2.57 m/uL (3.80-5.40); RDW 16.6 % (11.5-15.5); WBC 8.7 k/uL (3.8-10.6)
[2020-05-12] MEDS: INSULIN DETEMIR (LEVEMIR) 100 UNIT/ML SYR SQ SCH (09:51)
[2020-05-12] MEDS: PANTOPRAZOLE 40 MG/10 ML VIAL IVP SCH (09:52)
[2020-05-12] MEDS: CHOLECALCIFEROL 25 MCG (1000 IU) TABLET PO SCH (09:52)
[2020-05-12] MEDS: busPIRone HCl 10 MG TAB PO SCH (09:52)
[2020-05-12] MEDS: MULTIVITAMINS, THERA 1 EACH TAB PO SCH (09:52)
[2020-05-12] MEDS: COLCHICINE 0.6 MG EACH PO SCH (09:52)
[2020-05-12] MEDS: ASCORBIC ACID 500 MG TAB PO SCH (09:52)
[2020-05-12] MEDS: ZINC SULFATE 220 MG CAP PO SCH (09:53)
[2020-05-12] MEDS: FUROSEMIDE 10 MG/ML 2 ML VIAL IV SCH (09:53)
[2020-05-12] MEDS: dexAMETHasone 2 MG TAB PO SCH (09:53)
[2020-05-12 10:26] LABS: African American GFR (CKD) 47.4 (60.0-200.0); Albumin 3.3 g/dL (3.80-4.90); Albumin/Globulin Ratio 1.83 (1.60-3.17); Anion Gap 5.7 mmol/L (4.00-12.00); BUN/Creat Ratio 46.67 Ratio (12.00-20.00); Calcium 8.6 mg/dL (8.7-10.3); Carbon Dioxide 27.3 mmol/L (21.6-31.8); Globulin 1.8 g/dL (1.6-3.3); Non-African American GFR(CKD) 40.9 (60.0-200.0); Total Bilirubin 0.5 mg/dL (0.3-1.2); Total Protein 5.1 g/dL (6.2-8.2)
[2020-05-12 11:32] LABS: Glucose,Whole Blood 96 mg/dL (75-99)
--- NOTE | 2020-05-12 12:37 | P.PN ---
Subjective Progress Note Date: 05/12/20 Principal diagnosis: Melena An 85-year-old female who is seen in follow-up evaluation with a recent diagnosis of Covid 19 infection who was brought into the hospital for further e valuation of dark colored stool. The patient was at [facility] where was noted she had dark colored stool and sent in to the hospital for evaluation. The patient remains pleasantly confused and unreliable during questions. Nursing reports she no bowel movement yesterday or through the evening. The patient denies any abdominal pain, nausea, or vomiting. She is remains on 4 L nasal cannula. Hemoglobin 8.5 today. Objective - Vital Signs Vital signs: Vital Signs Temp 97.8 F 05/12/20 05:45 Pulse 79 05/12/20 05:45 Resp 19 05/12/20 02:50 BP 118/66 05/12/20 05:45 Pulse Ox 95 05/12/20 05:45 Intake & Output 05/11/20 05/12/20 05/12/20 18:59 06:59 18:59 Output Total 550 1400 Balance -550 -1400 Output: Urine 550 1400 Other: Voiding Method Indwelling Catheter Indwelling Catheter - Exam General appearance: The patient is alert, oriented to self, pleasantly confused, appears in no acute distress. HET: Head is normocephalic and atraumatic. Conjunctiva pink. Sclera anicteric. Neck: Supple without lymphadenopathy. Abdomen: Soft, obese, nontender, nondistended with bowel sounds. No guarding or rigidity. Extremities: Normal skin color and turgor. No pedal edema Skin: No rashes, no jaundice Neurological: No focal deficits. Alert and oriented x1 - Labs CBC & Chem 7: 05/12/20 09:12 05/12/20 06:18 Labs: Abnormal Lab Results - Last 24 Hours (Table) 05/11/20 05/11/20 05/11/20 Range/Units 11:26 13:19 21:09 RBC 2.55 L (3.80-5.40) m/uL Hgb 8.3 L (11.4-16.0) gm/dL Hct 25.9 L (34.0-46.0) % MCV 101.4 H (80.0-100.0) fL RDW 16.3 H (11.5-15.5) % Neutrophils # 8.2 H (1.3-7.7) k/uL Lymphocytes # 0.4 L (1.0-4.8) k/uL POC Glucose (mg/dL) 197 H 178 H (75-99) mg/dL Assessment and Plan (1) Melena Narrative/Plan: 85-year-old female with multiple medical comorbidities currently being treated for infection with COVID-19. Patient noted to have dark-colored bowel movements and fall in hemoglobin at 9 on presentation currently 10.1. He denies any history of peptic ulcer disease. She is unsure of prior EGD but does report remote history of colonoscopy. She does not believe she is on any NSAID medication but does take daily iron. Unclear etiology, may be related to gastritis/esophagitis, peptic ulcer disease, AVM, or other etiology. Due to multiple comorbidities including poor respiratory status and advanced age will hold off at this time for any endoscopies. Current Visit: Yes Status: Acute Code(s): K92.1 - MELENA SNOMED Code(s): 5894501 (2) Stool guaiac positive Current Visit: Yes Status: Acute Code(s): R19.5 - OTHER FECAL ABNORMALITIES SNOMED Code(s): 34408991 Plan: Supportive care Diet as tolerated Continue to monitor hemoglobin and hematocrit and transfuse as needed Continue to monitor for signs or symptoms of GI bleeding Continue management per Covid 19 pneumonia NO plans for endoscopy at this time due to multiple comorbidities and Covid-19 penumonia Thank you for allowing us to participate in the care of the patient Dr. Darrin Arita I agree with the dictator's note, documented as a scribe by Amy Garzon.
--- NOTE | 2020-05-12 13:26 | P.PN ---
Subjective Progress Note Date: 05/12/20 Principal diagnosis: COVID 19 pneumonia 85-year-old female patient, quite debilitated referred [place] [facility] [place] following a left ankle fracture. She was initially treated for her fracture at [facility] and [place]. The patient was also diagnosed having positive Covid 19 on 04/18/2020. At that time the patient was treated with oxygen, Decadron, and no reported history of administration monoclonal antibodies or Remdesivir. She is known to have multiple other medical problems and diabetes mellitus type 2, hypertension, hyperlipidemia, chronic atrial fibrillation, hypothyroidism and macular degeneration. She has osteoporosis, severe kyphoscoliosis of the spine, severe central canal stenosis at level of L4 addition to compression fracture multiple levels in her T-spine. In addition, the patient presented to the emergency department this time because of black tarry stool. She is not taking any follow anticoagulants. I'm not sure if she was given anticoagulation at time of her Covid 19 infection. In any rate, the patient has normal coagulation profile. No previous history of peptic ulcer disease. No hematemesis. Presentation was consistent with upper GI bleeding. She did have another large black tarry stool on the morning of 05/07/2019. Currently the patient on oxygen at 15 L per minute nasal cannula. No reported aspiration. Chest x-ray is consistent with patchy bilateral pulmonary interstitial infiltrates and this is typical of an underlying Covid 19 related pneumonia. Despite this high adequate oxygen requirements, the patient is hemodynamically stable and she is not having any major respiratory distress and her white cell count of 10.4 and the most recent hemoglobin is at 8.4 which dropped down from 10.1. D-dimer is at 4.21. Creatinine is at 59 with a creatinine 0.8. LDL still elevated at 1425, CRP is elevated at 49.7, LFTs are showing some mild elevation of alkaline phosphatase at 232, AST and ALP are within normal limits with a normal bilirubin. On today's evaluation the patient's condition is stable. She is being seen in follow-up on 05/08/2020. She is having one bloody bowel movement every day which is melanotic which is small and hemoglobin has remained stable. We have decided to monitor this patient conservatively. Her oxygen level is still the same at 15 L per minute nasal cannula and the pulse ox currently is at 85-90%. Her blood sugar is slightly elevated due to Decadron and her serum blood sugar is up to 218. She is taking is on 6 mg by mouth daily. At the same time she is taking clear liquid/full liquid diet. In terms of blood sugar control, she is on insulin based on a sliding scale coverage. No plans for EGD or colonoscopy at this point in time. Hemoglobin stable at 8.8. No major hemodynamic changes. The patient is seen today 05/09/2020 in follow-up on the regular medical floor. She is currently sitting up in bed. Wake, alert in no acute distress. She is maintaining O2 saturations in the 90s on 8 L high flow nasal cannula. Chest x- ray shows bilateral patchy areas of infiltrates and stable pleural effusions. She does have severe kyphoscoliosis. Has been having black tarry stools. Remains on Protonix. White count 9.4. Hemoglobin 8.1. Sodium 136. Potassium 4.1. Bicarb 15. Creatinine 1.61. LDH 348. C-reactive protein 2.6. Trending down. Pro-calcitonin 0.05. On 05/10/2020 patient seen in follow-up on medical floor, she is resting quietly in bed, there is to be in no acute distress, she is currently on 6 L of oxygen her pulse ox is ranging between 90-200%, no fever, hemodynamically she stable, a ppears to be breathing comfortably, patient is a very poor historian,she has severe kyphoscoliosis, she is able to answer simple questions, denies any acute distress, lasr chest x-ray yesterday showed bilateral patchy areas of infiltrate and pleural effusion. Her inflammatory markers have improved since admission, her pro-calcitonin level was negative at 0.05, she is not on any prophylactic anticoagulation in view of recent history of dark-colored stools, patient has had no active bleeding. Yesterday's labs revealed hemoglobin of 8.1, platelet count of 255, last d-dimer was on 05/07/2020 and was at 4.21. No lower extremity swelling, no worsening dyspnea. On 05/11/2020 patient seen in follow-up on medical floor, she remains on 6 L of oxygen, which rapid down to 4 L, and her pulse ox remained at 99%. Per nursing staff previous attempts to wean the FiO2 down were unsuccessful as the patient would desaturate to 70s and 80s while eating or sleeping, and subsequently FiO2 would have to be titrated back up, currently maintaining O2 sat at 99% on 4 L, she is breathing comfortably, she is answering simple questions, she does have underlying dementia, she is a poor historian, but she denies any acute distress, no shortness of breath, no fever or chills. Today's chest x-ray reviewed s howing diffuse pleural parenchymal changes. She remains on IV Lasix 20 mg every 12 hours, she remains on oral Decadron 6 mg daily, oral colchicine, and supplements. Mcmullen catheter is in, and patient is in -2.2 and the fluid balance over the last 24 hours. On 05/12/2020 patient seen in follow-up on medical floor, she is much more awake, responding verbally, denies any acute distress, she is breathing comfortably, she is on 4 L of oxygen pulse ox between 95-97%, no worsening dyspnea, lung sounds are diminished, she's been afebrile, blood pressure has been stable. Today's labs have been reviewed, white blood cell count is normal at 8.7, hemoglobin is 8.5, and there has been no recurrence of bleeding. Anticoagulation remains on hold, BUN is 56, creatinine is 1.2, electrolytes are unremarkable. She continues on oral Decadron, she continues on IV Lasix 20 mg twice daily, she responded well to diuresis. She is in negative fluid balance, -2.7 L over the last 24 hours. Doing well, she has had no acute events overnight, she could be considered for discharge back to the [facility] today Objective - Vital Signs Vital signs: Vital Signs Temp 97.8 F 05/12/20 10:00 Pulse 64 05/12/20 10:00 Resp 19 05/12/20 10:00 BP 168/76 05/12/20 10:00 Pulse Ox 97 05/12/20 10:00 Intake & Output 05/11/20 05/12/20 05/12/20 18:59 06:59 18:59 Output Total 550 1400 2700 Balance -550 -1400 -2700 Output: Urine 550 1400 2700 Uretheral (Mcmullen) 900 Other: Voiding Method Indwelling Catheter Indwelling Catheter Indwelling Catheter - Exam GENERAL EXAM: Alert, very pleasant, 85-year-old white female, currently on 4 L of oxygen and pulse ox between 97%, resting comfortably in bed, patient has severe kyphoscoliosis of the spine, comfortable in no apparent distress. HEAD: Normocephalic/atraumatic. EYES: Normal reaction of pupils, equal size. Conjunctiva pink, sclera white. NOSE: Clear with pink turbinates. THROAT: No erythema or exudates. NECK: No masses, no JVD, no thyroid enlargement, no adenopathy. CHEST: No chest wall deformity. Symmetrical expansion. LUNGS: Equal air entry with no crackles, wheeze, rhonchi or dullness. CVS: Regular rate and rhythm, normal S1 and S2, no gallops, no murmurs, no rubs ABDOMEN: Soft, nontender. No hepatosplenomegaly, normal bowel sounds, no guarding or rigidity. EXTREMITIES: No clubbing, no edema, no cyanosis, 2+ pulses and upper and lower extremities. MUSCULOSKELETAL: Muscle strength and tone normal. SPINE: Severe kyphoscoliosis of the spine noted SKIN: No rashes CENTRAL NERVOUS SYSTEM: Alert and oriented -2. No focal deficits, tone is normal in all 4 extremities. PSYCHIATRIC: Alert and oriented -2. Appropriate affect. Intact judgment and insight. - Labs CBC & Chem 7: 05/12/20 09:12 05/12/20 06:18 Labs: Abnormal Lab Results - Last 24 Hours (Table) 05/11/20 05/11/20 05/12/20 Range/Units 13:19 21:09 06:18 RBC 2.55 L 2.49 L (3.80-5.40) m/uL Hgb 8.3 L 8.2 L (11.4-16.0) gm/dL Hct 25.9 L 25.7 L (34.0-46.0) % MCV 101.4 H 103.2 H (80.0-100.0) fL MCH 32.9 H (27.0-32.0) pg MCHC 31.9 L (32.0-37.0) g/dL RDW 16.3 H 17.2 H (11.5-15.5) % MPV 12.3 H (9.5-12.2) fL Absolute Nucleated RBC 0.02 H (0.00-0.00) X 10*3/uL Immature Gran # 0.06 H (0.00-0.04) X 10*3/uL Neutrophils # 8.2 H (1.3-7.7) k/uL Lymphocytes # 0.4 L 0.78 L (1.0-4.8) k/uL Eosinophils # 0.02 L (0.04-0.35) X 10*3/uL NRBC/100 WBC Diff 0.2 H (0.0-0.0) /100 WBCS Chloride (96-109) mmol/L BUN (9.0-27.0) mg/dL Est GFR (CKD-EPI)AfAm (60.0-200.0) Est GFR (CKD-EPI)NonAf (60.0-200.0) BUN/Creatinine Ratio (12.00-20.00) Ratio POC Glucose (mg/dL) 178 H (75-99) mg/dL Calcium (8.7-10.3) mg/dL Alkaline Phosphatase (41-126) U/L Total Protein (6.2-8.2) g/dL Albumin (3.80-4.90) g/dL 05/12/20 05/12/20 Range/Units 06:18 09:12 RBC 2.57 L (3.80-5.40) m/uL Hgb 8.5 L (11.4-16.0) gm/dL Hct 26.5 L (34.0-46.0) % MCV 103.1 H (80.0-100.0) fL MCH (27.0-32.0) pg MCHC (32.0-37.0) g/dL RDW 16.6 H (11.5-15.5) % MPV (9.5-12.2) fL Absolute Nucleated RBC (0.00-0.00) X 10*3/uL Immature Gran # (0.00-0.04) X 10*3/uL Neutrophils # (1.3-7.7) k/uL Lymphocytes # (1.0-4.8) k/uL Eosinophils # (0.04-0.35) X 10*3/uL NRBC/100 WBC Diff (0.0-0.0) /100 WBCS Chloride 111 H (96-109) mmol/L BUN 56.0 H (9.0-27.0) mg/dL Est GFR (CKD-EPI)AfAm 47.4 L (60.0-200.0) Est GFR (CKD-EPI)NonAf 40.9 L (60.0-200.0) BUN/Creatinine Ratio 46.67 H (12.00-20.00) Ratio POC Glucose (mg/dL) (75-99) mg/dL Calcium 8.6 L (8.7-10.3) mg/dL Alkaline Phosphatase 233 H (41-126) U/L Total Protein 5.1 L (6.2-8.2) g/dL Albumin 3.30 L (3.80-4.90) g/dL Assessment and Plan Plan: Assessment: 1 Covid 19 related pneumonia diagnosed approximately 2 weeks ago and the patient does have residual pulmonary infiltrates and residual hypoxemia and currently is on 15 L of oxygen by nasal cannula. I am a bit concerned about the worsening oxygenation. This could be related to progression of her underlying Covid 19 related pneumonia. I do not have any signs of superinfection with bacteria this point in time. No signs of any decub's at heart failure. No signs of any aspiration. The patient is a 15 L of Bactrim by nasal cannula. She remains on Decadron. Inflammatory markers trending down 2 upper GI bleed as the patient was having melanotic stool and the patient's hemoglobin had dropped from a baseline of 13.5 from 04/18/2020. No transfusions are being given for now and the patient is being monitored clinically. No plans to do any EGD at this point in time based on age and comorbidities. The patient is still having some residual melanotic stools, no active bleeding and hemoglobin stable at 8.1. 3 hypertension 4 history of coronary artery disease with previous non-STEMI and the patient has a preserved LV function with moderate enlargement of the RA, and secondary pulmonary hypertension with a PA pressure of around 55 5 chronic stage II kidney disease 6 hypothyroidism 7 chronic thoracic kyphosis addition to T-spine compression fracture multiple levels in addition to lumbar spine compression fractures 8 history of lumbar spine stenosis at the level of L4 9 history of left ankle fracture and the patient is currently wearing a immobilizing cast 10 dementia 11 iron deficiency anemia 12 paroxysmal atrial fibrillation/flutter, no anticoagulants for now and the patient was on aspirin which is currently on hold Plan: Continue weaning FiO2, from pulmonary perspective patient breathing is comfortable, no worsening dyspnea, no cough, cold but the chest pain, no fever or chills, she is maintaining stable O2 saturations on decreasing amounts of oxygen, she had no acute events overnight, her vital signs have been stable. She can be considered for discharge to [facility] today, she can be switched back to her maintenance dose of Lasix, and she can finish oral course of Decadron for a total of 10 days including what she has received in the hospital. I performed a history & physical examination of the patient and discussed their management with my nurse practitioner, Ryann Hernandez. I reviewed the nurse practitioner's note and agree with the documented findings and plan of care. Lung sounds are positive for diminished breath sounds. The findings and the impression was discussed with the patient. I attest to the documentation by the nurse practitioner. Time with Patient: Less than 30
[2020-05-12 14:33] VITALS: BP 146/82; PULSE 58; RESP 18; TEMP 98.3
== END 2020-05-12 14:41 | DRG 377 ==
LOC: EC 13:06 → 5NMEDONC 15:17 → 4SSUR 15:45
PROVIDERS: ADMIT Family Medicine; ATTEND Family Medicine
PROC: 05HD33Z Insertion of Infusion Device into Right Cephalic Vein, Percutaneous Approach (ICD-10-PCS; principal; 2020-05-06 14:50)
PROC: 05HD33Z Insertion of Infusion Device into Right Cephalic Vein, Percutaneous Approach (ICD-10-PCS; 2020-05-11 07:30)
DX: K92.2 Gastrointestinal hemorrhage, unspecified (principal); G93.41 Metabolic encephalopathy; J12.82 Pneumonia due to coronavirus disease 2019; J96.01 Acute respiratory failure with hypoxia; U07.1 COVID-19; D62 Acute posthemorrhagic anemia; F33.9 Major depressive disorder, recurrent, unspecified; E11.65 Type 2 diabetes mellitus with hyperglycemia; E11.22 Type 2 diabetes mellitus with diabetic chronic kidney disease; E03.9 Hypothyroidism, unspecified; E78.5 Hyperlipidemia, unspecified; F03.90 Unspecified dementia, unspecified severity, without behavioral disturbance, psychotic disturbance, mood disturbance, and anxiety; F41.1 Generalized anxiety disorder; T38.0X5A Adverse effect of glucocorticoids and synthetic analogues, initial encounter; N18.2 Chronic kidney disease, stage 2 (mild); M41.9 Scoliosis, unspecified; M48.061 Spinal stenosis, lumbar region without neurogenic claudication; S82.892A Other fracture of left lower leg, initial encounter for closed fracture; G47.00 Insomnia, unspecified; I27.29 Other secondary pulmonary hypertension; I48.0 Paroxysmal atrial fibrillation; M40.204 Unspecified kyphosis, thoracic region; I12.9 Hypertensive chronic kidney disease with stage 1 through stage 4 chronic kidney disease, or unspecified chronic kidney disease; H35.30 Unspecified macular degeneration; I25.10 Atherosclerotic heart disease of native coronary artery without angina pectoris; Z88.1 Allergy status to other antibiotic agents; Z88.2 Allergy status to sulfonamides; Z88.8 Allergy status to other drugs, medicaments and biological substances; Z98.890 Other specified postprocedural states; I25.2 Old myocardial infarction; Z87.891 Personal history of nicotine dependence; Z83.3 Family history of diabetes mellitus; Z82.49 Family history of ischemic heart disease and other diseases of the circulatory system; Z79.899 Other long term (current) drug therapy; Z79.890 Hormone replacement therapy; Z79.82 Long term (current) use of aspirin; Z79.4 Long term (current) use of insulin
CPT/HCPCS: 36410; 36415; 71045; 76937; 80048; 80053; 82272; 82550; 82607; 82728; 82746; 83036; 83540; 83550; 83605; 83615; 83735; 84145; 85025; 85027; 85045; 85379; 85610; 85730; 86140; 86850; 86870; 86880; 86900; 86901; 87338; 87635; 93005; 93970; 94760; 96374; 99285